=== PATIENT | male | born 1985 | race Caucasian/White ===

== ENCOUNTER 2017-04-03 12:56 | Emergency (ER) | payer MEDICAID ==
[2017-04-03 13:51] VITALS: BP 139/78
[2017-04-03] MEDS ORDERED: Triamcinolone 0.5% OINT * 15 GM TUBE TOPICAL SCH ×2 (14:26→21:00)
--- NOTE | 2017-04-03 14:27 | UC ---
Skin Complaint HPI - HPI Summary HPI Summary: Patient presents to with CC of skin blisters which appeared spontaneously to the left forearm last evening. He also notes to 1 small .5cm X 2 cm linear urticarial lesion to the right forehead which began a few hours ago. He endorses itching and burning to the arm, but only itching to the forehead lesion. He denies muscle or nerve pain. Denies CRUZ. He has had chicken pox as a child and denies varicella zoster vaccine d/t age. He denies contact with any abnormal substances, is not allergic to anything and denies changes of detergents or soaps. Otherwise healthy although patient smokes. - History of Current Complaint Chief Complaint: [facility] Time Seen by Provider: 04/03/17 13:51 Stated Complaint: RASH Hx Obtained From: Patient Onset/Duration: Sudden Onset Skin Exposure Onset/Duration: Days Ago Timing: Constant Onset Severity: Moderate Current Severity: Moderate Pain Intensity: 4 Pain Scale Used: 0-10 Numeric Location: Discrete - left forearm Character: Swelling, Pruritus, Pain, Hives, Redness, Painful Aggravating: Nothing Alleviating: Nothing Associated Signs & Symptoms: Positive: Rash - Allergy/Home Medications Allergies/Adverse Reactions: Allergies Allergy/AdvReac Type Severity Reaction Status Date / Time Environmental Allergies Allergy Mild Congestion Uncoded 09/06/16 19:32 Review of Systems Constitutional: Negative Skin: Rash Eyes: Negative Respiratory: Negative Cardiovascular: Negative Motor: Negative Neurovascular: Negative Neurological: Negative Psychological: Negative All Other Systems Reviewed And Are Negative: Yes PMH/Surg Hx/FS Hx/Imm Hx Previously Healthy: Yes Endocrine History Of: Denies: Diabetes, Thyroid Disease Cardiovascular History Of: Denies: Cardiac Disorders, Hypertension Respiratory History Of: Reports: Asthma, Bronchitis - GETTING OVER BRONCHITIS Denies: COPD GI/ History Of: Reports: Ulcer Psychological History Of: Reports: Anxiety - ON MEDS, Depression - NO MEDS - Surgical History Surgical History: Yes Surgery Procedure, Year, and Place: Several ear tube placements 4-5, [facility]. Procedure to diagnose ulcers, EGD - Family History Known Family History: Positive: Other - skin cancer - Social History Occupation: Unemployed Lives: With Family Alcohol Use: Occasionally Substance Use Type: None Smoking Status (MU): Current Every Day Smoker Type: Cigarettes Amount Used/How Often: 1 ppd Length of Time of Smoking/Using Tobacco: 12 years Have You Smoked in the Last Year: Yes When Did the Patient Quit Smoking/Using Tobacco: wants to quit Household Exposure Type: Cigarettes Physical Exam Triage Information Reviewed: Yes Appearance: Well-Appearing, Well-Nourished Vital Signs: Initial Vital Signs Temp 98.6 F 04/03/17 13:45 Pulse 67 04/03/17 13:45 Resp 18 04/03/17 13:45 BP 139/78 04/03/17 13:45 Pulse Ox 100 04/03/17 13:45 Vital Signs Reviewed: Yes Eye Exam: Normal Eyes: Positive: Conjunctiva Clear Neck exam: Normal Neck: Positive: Supple, No Lymphadenopathy Respiratory Exam: Normal Respiratory: Positive: Chest non-tender, Lungs clear Cardiovascular Exam: Normal Cardiovascular: Positive: RRR Musculoskeletal Exam: Normal Musculoskeletal: Positive: Strength Intact Neurological Exam: Normal Neurological: Positive: Alert Psychological Exam: Normal Psychological: Positive: Normal Response To Family Skin: Positive: rashes - 4X4 patch of vesicles over left forearm with surrounding erythema with pruritis. 1 small utritcarial lesion over right forehead Course/Dx - Differential Diagnoses - Skin Complaint Differential Diagnoses: Drug Rash, Drug Intoxication, Urticaria, Varicella Zoster - Diagnoses Provider Diagnoses: Varicella Zoster Discharge - Discharge Plan Condition: Stable Disposition: HOME Prescriptions: ValACYclovir (*) [Valtrex 1 GM(*)] 1 gm PO DAILY #21 tab Patient Education Materials: Shingles (ED) Referrals: Paco Castelan DO [Primary Care Provider] - Additional Instructions: Follow up with your PCP If you develop any worsening rash or symptoms, come back to immediately This should be followed up by your PCP in about 1-2 weeks to assure resolution of symptoms Take medication directed to you Benardyl for itching - up to twice daily Topical steroid for itching, only use if needed for severe itching Take Valcyclovir as directed
== END 2017-04-03 14:47 | disposition home or self-care (01) ==
LOC: UCEAST 12:56
DX: B02.9 Zoster without complications (principal); J45.909 Unspecified asthma, uncomplicated; F41.8 Other specified anxiety disorders; F17.210 Nicotine dependence, cigarettes, uncomplicated
CPT/HCPCS: 99212; G0463

== ENCOUNTER 2017-04-04 19:29 | Emergency (ER) | payer MEDICAID ==
[2017-04-04 19:43] VITALS: BP 118/75
--- NOTE | 2017-04-04 20:10 | UC ---
Skin Complaint HPI - HPI Summary HPI Summary: Seen last night and dx with shingles started on Valtrex, today rash has spread from left arm to forehead both inner thigh and penis - History of Current Complaint Chief Complaint: UCRash Time Seen by Provider: 04/04/17 19:54 Stated Complaint: RASH Hx Obtained From: Patient Onset/Duration: Sudden Onset, Lasting Days, Still Present, Worse Since - today Skin Exposure Onset/Duration: Days Ago - does now remember doing the yard work at his grandmothers but not certian of any exposures Timing: Constant Onset Severity: Moderate Current Severity: Moderate Location: Diffuse Character: Swelling, Pruritus, Redness, Raised Aggravating: Nothing Alleviating: Nothing Associated Signs & Symptoms: Positive: Rash Related History: Possible Reaction to: Environmental Exposure - Allergy/Home Medications Allergies/Adverse Reactions: Allergies Allergy/AdvReac Type Severity Reaction Status Date / Time Environmental Allergies Allergy Mild Congestion Uncoded 04/04/17 19:43 Review of Systems Constitutional: Negative Skin: Rash - red with clear vesicles on forearm, forehead, both thighs and penis burning and itching discomfort Eyes: Negative ENT: Negative Respiratory: Negative Cardiovascular: Negative Gastrointestinal: Negative Genitourinary: Negative Motor: Negative Neurovascular: Negative Musculoskeletal: Negative Neurological: Negative Psychological: Negative All Other Systems Reviewed And Are Negative: Yes PMH/Surg Hx/FS Hx/Imm Hx Previously Healthy: No Endocrine History Of: Denies: Diabetes, Thyroid Disease Cardiovascular History Of: Denies: Cardiac Disorders, Hypertension Respiratory History Of: Reports: Asthma, Bronchitis - GETTING OVER BRONCHITIS Denies: COPD GI/ History Of: Reports: Ulcer Psychological History Of: Reports: Anxiety - ON MEDS, Depression - NO MEDS - Surgical History Surgical History: Yes Surgery Procedure, Year, and Place: Several ear tube placements 4-5, [facility]. Procedure to diagnose ulcers, EGD - Family History Known Family History: Positive: Other - skin cancer - Social History Occupation: Unemployed Lives: With Family Alcohol Use: Occasionally Substance Use Type: None Smoking Status (MU): Current Every Day Smoker Type: Cigarettes Amount Used/How Often: 1 ppd Length of Time of Smoking/Using Tobacco: 12 years Have You Smoked in the Last Year: Yes When Did the Patient Quit Smoking/Using Tobacco: wants to quit Household Exposure Type: Cigarettes Cessation Counseling: Patient Advised to Stop Physical Exam Triage Information Reviewed: Yes Appearance: Well-Appearing, No Pain Distress, Well-Nourished Vital Signs: Initial Vital Signs Temp 98.6 F 04/04/17 19:40 Pulse 92 04/04/17 19:40 Resp 16 04/04/17 19:40 BP 118/75 04/04/17 19:40 Pulse Ox 98 04/04/17 19:40 Vital Signs Reviewed: Yes Eye Exam: Normal Eyes: Positive: Conjunctiva Clear ENT Exam: Normal ENT: Positive: Normal ENT inspection, Hearing grossly normal, TMs normal. Negative: Nasal congestion, Nasal drainage, Tonsillar swelling, Tonsillar exudate, Trismus, Muffled/hoarse voice Dental Exam: Normal Neck exam: Normal Neck: Positive: Supple, Nontender, No Lymphadenopathy Respiratory Exam: Normal Respiratory: Positive: Chest non-tender, Lungs clear, Normal breath sounds, No respiratory distress, No accessory muscle use Cardiovascular Exam: Normal Cardiovascular: Positive: RRR, No Murmur, Pulses Normal, Brisk Capillary Refill Musculoskeletal Exam: Normal Musculoskeletal: Positive: Strength Intact, ROM Intact, No Edema Neurological Exam: Normal Neurological: Positive: Alert, Muscle Tone Normal Psychological Exam: Normal Skin Exam: Normal Skin: Positive: rashes - contact dermititis as described Diagnostics - Laboratory Diagnostic Studies Completed/Ordered: vzv/hsv swab obtained--(will continue valtex untill return is negative) Course/Dx - Course Course Of Treatment: add prednisone continue triamcinolone,mild soap and water wash follow with pcp prn - Differential Diagnoses - Skin Complaint Differential Diagnoses: Cellulitis, Contact Dermatitis, Local Allergic Reaction , Poison Delisa - Diagnoses Provider Diagnoses: contact dermititis, likey plant source,, nicotine dependant Discharge - Discharge Plan Condition: Stable Disposition: HOME Prescriptions: predniSONE TAB* [Deltasone TAB*] 10 mg PO DAILY #30 tab Patient Education Materials: Prednisone (By mouth), Contact Dermatitis (ED), Poison Delisa (ED) Referrals: Paco Castelan DO [Primary Care Provider] - If Needed
[2017-04-06 19:11] LABS: HS/VZ Source WOUND ON FOREHEAD; Varicella Zoster Result Negative (Negative); Varicella Zoster Source WOUND ON FOREHEAD
== END 2017-04-04 20:23 | disposition home or self-care (01) ==
LOC: UCEAST 19:29
DX: L25.9 Unspecified contact dermatitis, unspecified cause (principal); B02.9 Zoster without complications; J45.909 Unspecified asthma, uncomplicated; F41.8 Other specified anxiety disorders; F17.210 Nicotine dependence, cigarettes, uncomplicated
CPT/HCPCS: 87529; 87798; 99212; G0463

== ENCOUNTER 2017-04-12 17:54 | Emergency (ER) | payer MEDICAID ==
[2017-04-12] MEDS ORDERED: Lidocaine 2% PF * 5 ML VIAL INJ ONE (21:24)
[2017-04-12 22:18] VITALS: BP 118/77
[2017-04-12] MEDS ORDERED: Tetan/Diph/Pertus SYR(Tdap)* 0.5 ML SYR(BOOSTRIX) use SYR IM ONE (22:26)
--- NOTE | 2017-04-12 22:31 | UC ---
Adrian Messer Alok, scribed for Kanika Simpson MD on 04/12/17 at 2039 . Laceration HPI - HPI Summary HPI Summary: 31M presents to the [facility] with a laceration of the left hand between the thumb and pointer finger. Pt states he was helping his grandmother cut a hose with his knife slipping cutting his hand at 1715 this evening. His last tetanus shot is unknown. Pt took Clonipine before arrival due to anxiety. Pt smokes tobacco. Pt has NKDA. - History Of Current Complaint Chief Complaint: UCLaceration Stated Complaint: HAND INJURY Time Seen by Provider: 04/12/17 19:57 Hx Obtained From: Patient, Family/In Home Nanny - female SO Laceration Location: Hand - left Mechanism Of Injury: Sharp Trauma Onset/Duration: Sudden Onset, Lasting Hours, Still Present Severity: Moderate Pain Intensity: 7 Pain Scale Used: 0-10 Numeric Aggravating Factors: Nothing Related History: Dominant Hand Right - Allergies/Home Medications Allergies/Adverse Reactions: Allergies Allergy/AdvReac Type Severity Reaction Status Date / Time Environmental Allergies Allergy Mild Congestion Uncoded 04/12/17 18:34 PMH/Surg Hx/FS Hx/Imm Hx Endocrine History Of: Denies: Diabetes, Thyroid Disease Cardiovascular History Of: Denies: Cardiac Disorders, Hypertension Respiratory History Of: Reports: Asthma, Bronchitis Denies: COPD GI/ History Of: Reports: Ulcer Psychological History Of: Reports: Anxiety - ON MEDS, Depression - NO MEDS - Surgical History Surgical History: Yes Surgery Procedure, Year, and Place: Several ear tube placements 4-5, [facility]. Procedure to diagnose ulcers, EGD - Family History Known Family History: Positive: Cardiac Disease, Hypertension, Other - skin cancer - Social History Occupation: Employed Full-time Lives: With Family Alcohol Use: Occasionally Substance Use Type: None Smoking Status (MU): Current Every Day Smoker Type: Cigarettes Amount Used/How Often: 1 ppd Length of Time of Smoking/Using Tobacco: 12 years Have You Smoked in the Last Year: Yes When Did the Patient Quit Smoking/Using Tobacco: wants to quit Household Exposure Type: Cigarettes Review of Systems Constitutional: Negative Eyes: Other - laceration left hand Neurovascular: Negative Musculoskeletal: Negative Neurological: Negative Psychological: Anxious All Other Systems Reviewed And Are Negative: Yes Physical Exam Triage Information Reviewed: Yes Appearance: Well-Appearing, Well-Nourished, Pain Distress Vital Signs: Initial Vital Signs Temp 98.8 F 04/12/17 18:31 Pulse 106 04/12/17 18:31 Resp 16 04/12/17 18:31 BP 125/76 04/12/17 18:31 Pulse Ox 100 04/12/17 18:31 elevated BP and tachycardia noted Vital Signs Reviewed: Yes Eyes: Positive: Conjunctiva Clear ENT: Positive: Normal ENT inspection Neck: Positive: Supple Respiratory: Positive: Lungs clear, Normal breath sounds, No respiratory distress Cardiovascular: Positive: RRR, No Murmur, Pulses Normal, Brisk Capillary Refill Musculoskeletal: Positive: Strength Intact, ROM Intact Neurological: Positive: Alert, Muscle Tone Normal Psychological Exam: Normal Skin: Positive: Other - 3cm linear laceration left hand between thumb and pointer finger Laceration Repair - Laceration Repair 1 Description: Linear - left hand between thumb and pointer finger Laceration Size After Repair: Length (cm) - 3 cm, Width (mm) - 2 mm, Depth (mm) - 2 mm Modified For Repair: No Type Injection: Local Anesthesia Used: 2.0% Lido Cleansing Completed Via Routine Prep: Yes Irrigation With Pressure Irrigation Device: Yes Closure Material: Sutures - 7 Closure Method: Single Layer Suture Of: Skin Suture Type: Nylon - 4-O nylon Laceration Course/Dx - Course/Dx Course Of Treatment: Pt medications reviewed at visit. Pt presented with left hand laceration. Will irrigate wound and suture. Pt discharged with instructions to return for suture removal in 10-14 days or if any new/worsening symptoms. - Differential Dx - Laceration/Wound Differental Diagnoses: Laceration, Puncture Wound, Tendon Laceration Provider Diagnoses: Tobacco Abuse Disorder. Laceration left hand. Elevated blood pressure due to pain Discharge - Discharge Plan Condition: Stable Disposition: HOME Patient Education Materials: Laceration (ED) Referrals: Paco Castelan DO [Primary Care Provider] - Additional Instructions: Have your stitches removed in 10-14 days. Change the bandage daily. RETURN TO URGENT CARE FOR ANY NEW OR WORSENING SYMPTOMS The documentation as recorded by the Adrian cardoza Alok accurately reflects the service I personally performed and the decisions made by Calvin ferguson Barbara J, MD.
== END 2017-04-12 22:50 | disposition home or self-care (01) ==
LOC: UCEAST 17:54
DX: S61.412A Laceration without foreign body of left hand, initial encounter (principal); F17.210 Nicotine dependence, cigarettes, uncomplicated; J45.909 Unspecified asthma, uncomplicated; K25.9 Gastric ulcer, unspecified as acute or chronic, without hemorrhage or perforation; F41.9 Anxiety disorder, unspecified; F32.9 Major depressive disorder, single episode, unspecified; R03.0 Elevated blood-pressure reading, without diagnosis of hypertension; W26.0XXA Contact with knife, initial encounter
CPT/HCPCS: 12002; 90471; 90715; 99212; G0463

== ENCOUNTER 2017-04-26 10:26 | Emergency (ER) | payer MEDICAID ==
[2017-04-26 10:40] VITALS: BP 104/63
[2017-04-26] MEDS ORDERED: Benzoin COMPOUND swab* 1 applicator pak TOPICAL ONE (10:55)
[2017-04-26] MEDS ORDERED: Benzoin Compound STICK TOPICAL ONE (10:55)
--- NOTE | 2017-04-26 11:03 | UC ---
HPI Wound/Suture Re-check - HPI Summary HPI Summary: Suture removal from web space between thumb and first finger--stitches in for 14 days tetanus up to date - History Of Current Complaint Chief Complaint: UCLaceration Stated Complaint: SUTURE REMOVAL Time Seen by Provider: 04/26/17 10:50 Hx Obtained From: Patient Onset/Duration: Sudden Onset, Lasting Weeks - 2, Still Present Severity: Mild Pain Intensity: 2 Pain Scale Used: 0-10 Numeric - Allergies/Home Medications Allergies/Adverse Reactions: Allergies Allergy/AdvReac Type Severity Reaction Status Date / Time Environmental Allergies Allergy Mild Congestion Uncoded 04/26/17 10:42 PMH/Surg Hx/FS Hx/Imm Hx Previously Healthy: No Respiratory History: Asthma Psychological History: Anxiety - Surgical History Surgical History: Yes Surgery Procedure, Year, and Place: Several ear tube placements 4-5, [facility]. Procedure to diagnose ulcers, EGD - Family History Known Family History: Positive: Cardiac Disease, Hypertension, Other - skin cancer - Social History Occupation: Unemployed Lives: With Family Alcohol Use: Occasionally Substance Use Type: None Smoking Status (MU): Heavy Every Day Tobacco Smoker Type: Cigarettes Amount Used/How Often: 1 ppd Length of Time of Smoking/Using Tobacco: 12 years Have You Smoked in the Last Year: Yes When Did the Patient Quit Smoking/Using Tobacco: wants to quit Household Exposure Type: Cigarettes Cessation Counseling: Counseled 3+Min - 10 Min Review of Systems Constitutional: Negative Skin: Other - healing wound left hand Eyes: Negative ENT: Negative Respiratory: Negative Cardiovascular: Negative Gastrointestinal: Negative Genitourinary: Negative Motor: Negative Neurovascular: Negative Musculoskeletal: Negative Neurological: Negative Psychological: Negative All Other Systems Reviewed And Are Negative: Yes Physical Exam Triage Information Reviewed: Yes Appearance: Well-Appearing, No Pain Distress, Well-Nourished Vital Signs: Initial Vital Signs Temp 99.3 F 04/26/17 10:39 Pulse 82 04/26/17 10:39 Resp 16 04/26/17 10:39 BP 104/63 04/26/17 10:39 Pulse Ox 99 04/26/17 10:39 Vital Signs Reviewed: Yes Eye Exam: Normal Eyes: Positive: Conjunctiva Clear ENT Exam: Normal ENT: Positive: Normal ENT inspection, Hearing grossly normal. Negative: Nasal congestion, Nasal drainage, Trismus, Muffled/hoarse voice Dental Exam: Normal Neck exam: Normal Neck: Positive: Supple, Nontender, No Lymphadenopathy Respiratory Exam: Normal Respiratory: Positive: Chest non-tender, No respiratory distress, No accessory muscle use Cardiovascular Exam: Normal Cardiovascular: Positive: RRR, Pulses Normal, Brisk Capillary Refill Musculoskeletal Exam: Normal Musculoskeletal: Positive: Strength Intact, ROM Intact, No Edema Neurological Exam: Normal Neurological: Positive: Alert, Muscle Tone Normal Psychological Exam: Normal Skin Exam: Normal Skin: Positive: Other - wound left hand Re-Evaluation - Re-Evaluation First Eval Change: Improved - Sutures removed---wound remains not completely well approximated---steri strips applied with good effect and approximation Course/Dx - Course Course Of Treatment: healing wounf, suture removal,nicotine dependent - Differential Dx - Laceration/Wound Differential Diagnoses: Healing Wound, Suture Removal Provider Diagnoses: Suture removal, healing wound, nicotine dependent Discharge - Discharge Plan Condition: Stable Disposition: HOME Patient Education Materials: Ibuprofen (By mouth), How to Stop Smoking (ED), Stitches Removal (ED), Steristrips (ED) Referrals: Paco Castelan DO [Primary Care Provider] - If Needed
== END 2017-04-26 11:08 | disposition home or self-care (01) ==
LOC: UCEAST 10:26
DX: Z48.02 Encounter for removal of sutures (principal); F17.210 Nicotine dependence, cigarettes, uncomplicated
CPT/HCPCS: 99212; G0463

== ENCOUNTER 2017-04-29 10:01 | Emergency (ER) | payer MEDICAID ==
[2017-04-29 10:37] VITALS: BP 124/76
--- NOTE | 2017-04-29 11:24 | UC ---
HPI Wound/Suture Re-check - HPI Summary HPI Summary: concerned his wound is not healing - History Of Current Complaint Chief Complaint: UCLaceration Stated Complaint: WOUND RECHECK Time Seen by Provider: 04/29/17 11:21 Hx Obtained From: Patient Onset/Duration: Lasting Days Severity: Mild Pain Intensity: 0 - Allergies/Home Medications Allergies/Adverse Reactions: Allergies Allergy/AdvReac Type Severity Reaction Status Date / Time Environmental Allergies Allergy Mild Congestion Uncoded 04/29/17 10:37 PMH/Surg Hx/FS Hx/Imm Hx Previously Healthy: No Respiratory History: Asthma Psychological History: Anxiety - Surgical History Surgical History: Yes Surgery Procedure, Year, and Place: Several ear tube placements 4-5, [facility]. Procedure to diagnose ulcers, EGD - Family History Known Family History: Positive: Cardiac Disease, Hypertension, Other - skin cancer - Social History Occupation: Employed Full-time Lives: With Family Alcohol Use: Occasionally Substance Use Type: None Smoking Status (MU): Heavy Every Day Tobacco Smoker Type: Cigarettes Amount Used/How Often: 1 ppd Length of Time of Smoking/Using Tobacco: 12 years Have You Smoked in the Last Year: Yes When Did the Patient Quit Smoking/Using Tobacco: wants to quit Household Exposure Type: Cigarettes Review of Systems Constitutional: Negative Skin: Other - callus on web space of left hand remains not well approximated after suture removal and steri strips Eyes: Negative ENT: Negative Respiratory: Negative Cardiovascular: Negative Gastrointestinal: Negative Genitourinary: Negative Motor: Negative Neurovascular: Negative Musculoskeletal: Negative Neurological: Negative Psychological: Negative All Other Systems Reviewed And Are Negative: Yes Physical Exam Triage Information Reviewed: Yes Appearance: Well-Appearing, No Pain Distress, Well-Nourished Vital Signs: Initial Vital Signs Temp 98.2 F 04/29/17 10:35 Pulse 69 04/29/17 10:35 Resp 16 04/29/17 10:35 BP 124/76 04/29/17 10:35 Pulse Ox 100 04/29/17 10:35 Vital Signs Reviewed: Yes Eye Exam: Normal Eyes: Positive: Conjunctiva Clear ENT Exam: Normal ENT: Positive: Normal ENT inspection, Hearing grossly normal. Negative: Nasal congestion, Nasal drainage Dental Exam: Normal Neck exam: Normal Neck: Positive: Supple, Nontender Respiratory Exam: Normal Respiratory: Positive: Chest non-tender, No respiratory distress, No accessory muscle use Cardiovascular Exam: Normal Cardiovascular: Positive: RRR, Pulses Normal, Brisk Capillary Refill Musculoskeletal Exam: Normal Musculoskeletal: Positive: Strength Intact, ROM Intact, No Edema Neurological Exam: Normal Neurological: Positive: Alert, Muscle Tone Normal Psychological Exam: Normal Psychological: Positive: Normal Response To Family, Age Appropriate Behavior Skin Exam: Normal Course/Dx - Course Course Of Treatment: soap and water wash, splint on finger, follow with pcp - Differential Dx - Laceration/Wound Differential Diagnoses: Cellulitis, Healing Wound Provider Diagnoses: healing wound Discharge - Discharge Plan Condition: Stable Disposition: HOME Patient Education Materials: How to Stop Smoking (ED), Acute Wound Care (ED), Splint Care (ED) Referrals: Paco Castelan DO [Primary Care Provider] - If Needed
== END 2017-04-29 11:44 | disposition home or self-care (01) ==
LOC: UCEAST 10:01
DX: Z72.0 Tobacco use (principal); Z51.89 Encounter for other specified aftercare
CPT/HCPCS: 99213; G0463

== ENCOUNTER 2017-07-31 18:04 | Emergency (ER) | payer OTHER ==
--- NOTE | 2017-07-31 18:08 | UC ---
Ear Complaint HPI - HPI Summary HPI Summary: 31 y/o male presents to the urgent care c/o LF ear pain for the past 2 weeks and bleeding since yesterday. Pt states he has had multiple B/L ear tubes. This is is the #[address] Newsome. Bleeding stopped since he placed a cotton ball out his ear. Pain is 8/10 with mild dizziness and decrease hearing. Pt denies pressure, CRUZ, fever, SOB, chest pain, N/V/D. Pt request a note for work since he had to leave work due to ear pain. - History of Current Complaint Stated Complaint: EAR PAIN Time Seen by Provider: 07/31/17 18:05 Hx Obtained From: Patient Onset/Duration: Gradual Onset, Lasting Days Severity Initially: Mild Severity Currently: Severe Pain Intensity: 8 Pain Scale Used: 0-10 Numeric Aggravating Factors: FB - ear tube bleeding Alleviating Factors: Nothing Associated Signs/Symptoms: Positive: Discharge - apontaneous bleeding yesterday - Allergies/Home Medications Allergies/Adverse Reactions: Allergies Allergy/AdvReac Type Severity Reaction Status Date / Time Environmental Allergies Allergy Mild Congestion Uncoded 07/31/17 18:17 Home Medications: Home Medications Budesonide Flexhaler 90 (NF) [Pulmicort Flexhaler 90 mcg/act (NF)] 07/31/17 [ History] PMH/Surg Hx/FS Hx/Imm Hx Previously Healthy: Yes Endocrine History: Dyslipidemia - diet control Respiratory History: Asthma Other Respiratory History: seasonal allergies - Surgical History Surgical History: Yes Surgery Procedure, Year, and Place: Several ear tube placements 4-5, [facility]. Procedure to diagnose ulcers, EGD - Family History Known Family History: Positive: Cardiac Disease, Hypertension, Other - skin cancer - Social History Occupation: Employed Full-time Lives: With Family Alcohol Use: Occasionally Substance Use Type: None Smoking Status (MU): Heavy Every Day Tobacco Smoker Type: Cigarettes Amount Used/How Often: 1 ppd Length of Time of Smoking/Using Tobacco: 12 years Have You Smoked in the Last Year: Yes When Did the Patient Quit Smoking/Using Tobacco: wants to quit Household Exposure Type: Cigarettes Review of Systems Constitutional: Negative Skin: Negative Eyes: Negative ENT: Ear Ache - with spontaneous bleeding yesterday Respiratory: Negative Cardiovascular: Negative Gastrointestinal: Negative Genitourinary: Negative Motor: Negative Neurovascular: Negative Musculoskeletal: Negative Neurological: Negative Psychological: Negative Is Patient Immunocompromised?: No All Other Systems Reviewed And Are Negative: Yes Physical Exam Triage Information Reviewed: Yes Appearance: Well-Appearing, No Pain Distress, Well-Nourished, Thin Vital Signs Reviewed: Yes Eye Exam: Normal Eyes: Positive: Conjunctiva Clear - PERRLA, EOMI ENT: Positive: Normal ENT inspection, Pharynx normal, TMs normal - RT exteranal ear canal clear wit ear tube in place, RT TM pearly in color. LF external ear canal with erythema, tender to palaption. Ear tube with sorrounding dry blood.. Negative: Nasal congestion, Nasal drainage Dental Exam: Normal Neck exam: Normal Neck: Positive: Supple, Nontender, Enlarged Nodes @ - LF anterior cervical lymphadenopathy tender and enlarge Respiratory Exam: Normal Respiratory: Positive: Chest non-tender, Lungs clear, Normal breath sounds Cardiovascular Exam: Normal Cardiovascular: Positive: RRR, No Murmur, Pulses Normal Abdominal Exam: Normal Abdomen Description: Positive: Nontender, No Organomegaly, Soft. Negative: CVA Tenderness (R), CVA Tenderness (L) Bowel Sounds: Positive: Present Musculoskeletal Exam: Normal Musculoskeletal: Positive: Strength Intact, ROM Intact, No Edema Neurological Exam: Normal Psychological Exam: Normal Skin Exam: Normal Ear Complaint Course/Dx - Course Course Of Treatment: 31 y/o male presents to the urgent care c/o LF ear pain for the past 2 weeks and bleeding since yesterday. Pt states he has had multiple B/L ear tubes. This is is the #[address] Newsome. Bleeding stopped since he placed a cotton ball out his ear. Pain is 8/10 with mild dizziness and decrease hearing. Pt denies pressure, CRUZ, fever, SOB, chest pain, N/V/D. Pt request a note for work since he had to leave work due to ear pain. HX obtained. Pt otitis externa, LF ear tube is visualized on external ear canal with dry blood. Pt with probable TM perforated. Pt Given Ibuprofen 800mg PO for pain at the clinic. Viscous Lidocaine placed with a swab in outer external ear canal to alleviate pain since pt decline ear drops. Pt Rx Prednisone PO taper dose, Augmentin PO and Ibuprofen PO. DR Espinoza consulted and He agreed with PT 's care and treatment. Pt given referral for DR Newsome as soon as possible for fruther evaluation and treatment. Pt Tolerated well medications and pain decrease. Pt given work note. Pt understood and agreed with D/C instructions and left the clinic ambulating.A&OX3 - Differential Dx/Diagnosis Differential Diagnosis/HQI/PQRI: Otitis Externa, Otitis Media, Perforated TM, Pharyngitis, URI Provider Diagnoses: 1- Acute otits externa with probable perforated TM - Physician Notifications Discussed Patient Care With: Jeromy Espinoza - Dr Espinoza agreed with PT's care and plan Discharge - Discharge Plan Condition: Stable Disposition: HOME Prescriptions: Amoxicillin/Clavulanate TAB* [Augmentin TAB 875*] 875 mg PO BID #20 tab Ibuprofen TAB* [Motrin TAB* 800 MG] 800 mg PO Q6H #30 tab predniSONE TAB* [Deltasone TAB*] 20 mg PO DAILY #11 tab Patient Education Materials: Otitis Media (ED) Forms: *Work Release Referrals: Paco Castelan DO [Primary Care Provider] - If Needed Aníbal Newsome MD [Medical Doctor] - Additional Instructions: 1-Please take full course of antibiotic to avoid resistance. 2- Take Ibuprofen PO and Prednisone PO as instructed after meals to alleviate pain and swelling. 3- F/u with your ENT DR Newsome as soon as possible for further evaluation and treatment. 4- If you develop any fever, bleeding returns please despite taking antibiotics please go immediately to the ER for further treatment.
[2017-07-31 18:21] VITALS: BP 131/74
[2017-07-31] MEDS ORDERED: Ibuprofen TAB* 400 MG PO ONE (18:32)
[2017-07-31] MEDS ORDERED: Lidocaine 2% VISCOUS* 15 ML UDC SWISH SPIT ONE (18:49)
== END 2017-07-31 19:21 | disposition home or self-care (01) ==
LOC: UCEAST 18:04
DX: H60.502 Unspecified acute noninfective otitis externa, left ear (principal); Z98.890 Other specified postprocedural states; F17.210 Nicotine dependence, cigarettes, uncomplicated
CPT/HCPCS: 99212; A9270-GY; G0463

== ENCOUNTER 2017-08-25 07:54 | Day surgery (SDC) | payer OTHER ==
[~2017-08-25 07:54] MED LIST: Buffered Lidocaine 0.9% SYRIN* 5 ML/SYR SYRINGE INTRADERM ONE; Dexamethasone IV* 4 MG/ML 1 ML (4 MG) IV SLOW PU ONE; Famotidine IV* 10 MG/ML 2 ML (20 mg) IV ONE
[2017-08-25] MEDS ORDERED: Buffered Lidocaine 0.9% SYRIN* 5 ML/SYR SYRINGE ONE (07:58)
[2017-08-25] MEDS ORDERED: Dexamethasone IV* 4 MG/ML 1 ML (4 MG) ONE (07:58)
[2017-08-25] MEDS ORDERED: Famotidine IV* 10 MG/ML 2 ML (20 mg) ONE (07:58)
[2017-08-25] MEDS ORDERED: PROCHLORPERAZINE INJ 5 MG/ML 2 ML VIAL IV PRN (09:11)
[2017-08-25] MEDS ORDERED: fentaNYL* 50 MCG/ML 2 ML VIAL (100 MCG VIAL) IV PRN (09:11)
[2017-08-25] MEDS ORDERED: HYDROcodone/ACETAMIN 5-325 MG* 1 TAB PO PRN (09:11)
[2017-08-25] MEDS ORDERED: Ketorolac INJ* 30 MG/ML 1 ML VIAL IV PRN (09:11)
[2017-08-25] MEDS ORDERED: Ciprofloxacin 0.3% OPTH.SOL* 2.5 ML BTL ONE (09:13)
[2017-08-25] MEDS ORDERED: fentaNYL* 50 MCG/ML 2 ML VIAL (100 MCG VIAL) ONE (09:19)
[2017-08-25] MEDS ORDERED: Lidocaine 2% PF * 5 ML VIAL ONE (09:23)
[2017-08-25] MEDS ORDERED: Propofol* 10 MG/ML 20 ML BTL IV PUSH ONE (09:23)
[2017-08-25] MEDS ORDERED: Ondansetron INJ* 2 MG/ML VIAL ONE (09:36)
[2017-08-25 10:34] VITALS: BP 105/63
--- NOTE | 2017-08-25 23:05 | OP ---
DATE OF OPERATION: 08/25/17 - [facility] DATE OF : 89 SURGEON: Jovany Newsome MD. ANESTHESIOLOGIST: Mariajose Brunson MD ANESTHESIA: Gas mask anesthesia. PRE-OP DIAGNOSIS: Chronic otitis media with retained myringotomy tubes. POST-OP DIAGNOSIS: Chronic otitis media with retained myringotomy tubes. OPERATIVE PROCEDURE: Examination of the ears under anesthesia with removal of myringotomy tubes bilaterally. COMPLICATIONS: None. DISPOSITION: Good. SPECIMEN: None. BLOOD LOSS: None. DESCRIPTION OF PROCEDURE: The patient was taken to the operating room, placed in the supine position on the operating table, maintained with gas mask and IV anesthesia. Head was turned to the right, ear speculum was placed in the left ear canal. He had dried blood in the myringotomy tube, which was grasped and removed. This tympanic membrane was intact. Middle ear space was clear. Cipro drops were placed and cotton ball was placed in the canal. The head was turned to the left. Ear speculum was then placed in the right ear canal and the tube and some dried blood and wax around the tube were grasped and removed. 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 Middle ear space appeared clear. No other evidence of the cholesteatoma. Cipro drops were placed and a cotton ball was placed in the canal. The patient tolerated this well, no complications, transferred to the recovery room in stable condition. [id number]/CPS #: [id number] MTDD
== END 2017-08-25 10:50 | disposition home or self-care (01) ==
LOC: OR 07:54
PROVIDERS: ATTEND Otolaryngology
DX: H66.93 Otitis media, unspecified, bilateral (principal); H92.13 Otorrhea, bilateral; F17.210 Nicotine dependence, cigarettes, uncomplicated; J45.909 Unspecified asthma, uncomplicated; E78.5 Hyperlipidemia, unspecified; K21.9 Gastro-esophageal reflux disease without esophagitis
CPT/HCPCS: A9270-GY; J1100; J2405; J2704; J3010

== ENCOUNTER 2018-07-24 15:23 | Emergency (ER) | payer SELFPAY ==
[2018-07-24 17:27] VITALS: BP 140/82
[2018-07-24] MEDS ORDERED: HYDROcodone/ACETAMIN 5-325 MG* 1 TAB PO ONE (17:55)
--- NOTE | 2018-07-24 17:58 | UC ---
Dental HPI - HPI Summary HPI Summary: Complains of a cracked tooth on the lower left lower side of mouth 6 days ago. Denies fever, sore throat, loss of jaw or range of motion, dysphagia, purulent discharge, oral swelling. Patient states he has no insurance and is trying to get a dentist. Has taken ibuprofen with minimal relief of pain. - History of Current Complaint Chief Complaint: UCDentalProblem Stated Complaint: CRACKED TOOTH Time Seen by Provider: 07/24/18 17:49 Hx Obtained From: Patient Onset/Duration: Gradual Onset Severity: Severe Pain Intensity: 10 Pain Scale Used: 0-10 Numeric Aggravating Factor(s): Heat, Cold, Chewing Alleviating Factor(s): Nothing - Allergies/Home Medications Allergies/Adverse Reactions: Allergies Allergy/AdvReac Type Severity Reaction Status Date / Time No Known Allergies Allergy Verified 08/25/17 08:07 Home Medications: Home Medications Naproxen Sodium [Aleve] 07/24/18 [History] PMH/Surg Hx/FS Hx/Imm Hx - Surgical History Surgical History: Yes Surgery Procedure, Year, and Place: bilateral ear tube placements - x5/6 [facility] - Family History Known Family History: Positive: Cardiac Disease, Hypertension, Other - skin cancer - Social History Alcohol Use: Rare Substance Use Type: None Smoking Status (MU): Heavy Every Day Tobacco Smoker Type: Cigarettes Amount Used/How Often: 1 ppd for 13 years Length of Time of Smoking/Using Tobacco: 12 years Have You Smoked in the Last Year: Yes When Did the Patient Quit Smoking/Using Tobacco: wants to quit Household Exposure Type: Cigarettes Review of Systems Constitutional: Negative Skin: Negative Eyes: Negative ENT: Dental Pain Respiratory: Negative Cardiovascular: Negative Gastrointestinal: Negative Genitourinary: Negative Motor: Negative Neurovascular: Negative Musculoskeletal: Negative Neurological: Negative Psychological: Negative All Other Systems Reviewed And Are Negative: Yes Physical Exam - Summary Physical Exam Summary: No oral lesions, apical abscess, purulent discharge noted. Cracked tooth on room molar left lower side. Triage Information Reviewed: Yes Appearance: Well-Appearing Vital Signs: Initial Vital Signs Temp 98.1 F 07/24/18 17:21 Pulse 85 07/24/18 17:21 Resp 16 07/24/18 17:21 BP 140/82 07/24/18 17:21 Pulse Ox 98 07/24/18 17:21 Vital Signs Reviewed: Yes Eye Exam: Normal ENT Exam: Normal Dental: Positive: Percussion Tenderness @, Dental Fracture @. Negative: Abscess @ Neck exam: Normal Respiratory Exam: Normal Cardiovascular Exam: Normal Abdominal Exam: Normal Musculoskeletal Exam: Normal Neurological Exam: Normal Psychological Exam: Normal Skin Exam: Normal Dental Complaint Course/Dx - Course Course Of Treatment: Complains of a cracked tooth on the lower left lower side of mouth 6 days ago. Denies fever, sore throat, loss of jaw or range of motion , dysphagia, purulent discharge, oral swelling. Patient states he has no insurance and is trying to get a dentist. Has taken ibuprofen with minimal relief of pain. Physical exam:No oral lesions, apical abscess, purulent discharge noted. Cracked tooth on room molar left lower side. Vital signs normal. Rx for Pen-Vee K, hydrocodone. Follow-up with dentist - Differential Dx/Diagnosis Provider Diagnoses: dental pain. cracked tooth Discharge - Sign-Out/Discharge Documenting (check all that apply): Patient Departure All imaging exams completed and their final reports reviewed: No Studies - Discharge Plan Condition: Stable Disposition: HOME Prescriptions: HYDROcodone/ACETAMIN 5-325 MG* [[place] 5-325 TAB*] 1 tab PO Q6H PRN 2 Days #6 tab MDD 4 tabs PRN Reason: Pain Penicillin VK 500 MG TAB(NF) [Penicillin VK 500 mg Tab] 500 mg PO QID 7 Days # 28 tab Patient Education Materials: Toothache (ED) Referrals: Paco Castelan DO [Primary Care Provider] - Additional Instructions: Follow-up with your dentist. - Billing Disposition and Condition Condition: STABLE Disposition: Home - Attestation Statements Provider Attestation: I was available for consult. This patient was seen by the [facility]. The patient was not presented to, seen by, or examined by me. -Deshawn
== END 2018-07-24 18:15 | disposition home or self-care (01) ==
LOC: UCEAST 15:23
DX: K03.81 Cracked tooth (principal); K08.89 Other specified disorders of teeth and supporting structures; F17.210 Nicotine dependence, cigarettes, uncomplicated
CPT/HCPCS: 99212; G0463

== ENCOUNTER 2018-10-27 10:07 | Emergency (ER) | payer OTHER ==
--- OUTSIDE RECORDS SUMMARY | 2018-10-27 10:13 | XMS REPORT | Continuity of Care Document ---
:1985 External Reference #:[id number] Author Name Jasmyn Soto Care Team Providers Name Role Phone HCP given Primary Care Physician Unavailable Payers Type Date Identification Numbers Payment Provider Subscriber Effective: Policy Number: [id number] [employer] (MARISA Palomino 2009 MGD) Group Name: Seq#[id number] [address] [address] PayID: [id number] [place] [address] Policy Number: [id number] [facility] Timothy Palomino PayID: [id number] [address] [place] [address] Advance Directives Description No Information Available Problems Date Description Provider Status Onset: 09/13/2004 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 Active Onset: 11/11/2009 Gastroesophageal reflux disease Sanjiv Encarnacion M.D. Active Onset: 12/22/2011 Borderline personality disorder Sanjiv Encarnacion M.D. Active Onset: 08/31/2013 Tobacco user Paco Castelan D.O. Active Onset: 08/31/2013 Acute maxillary sinusitis Paco Castelan D.O. Active Onset: 12/26/2013 Disorder of shoulder Paco Castelan D.O. Active Onset: 02/14/2014 Cough Paco Castelan D.O. Active Onset: 02/14/2014 Acute bronchitis Paco Castelan D.O. Active Onset: 02/14/2014 Lipoprotein deficiency disorder Paco Castelan D.O. Active Onset: 09/26/2016 Mixed hyperlipidemia Paco Castlean D.O. Active Onset: 10/08/2018 Uncomplicated moderate persistent Paco Castelan D.O. Active asthma Onset: 10/08/2018 Allergic rhinitis Paco Castelan D.O. Active Onset: 10/08/2018 Anxiety state Paco Castelan D.O. Active Onset: 10/08/2018 Moderate recurrent major depression Paco Castelan D.O. Active Family History Date Family Member(s) Problem(s) Comments General Anxiety And Depression Mother Hypercholesterolemia Paternal Grandfather CABG in 30's Social History Type Date Description Comments Sex Unknown Lives With Mother Diet Healthy, Well Balanced Sleep Typically sleeps 8 hours a night Smoke-Free Home is smoke-free Abuse No history of abuse Tobacco Use Start: Unknown Tried Welbutrin Wo Help LOSENGES AND NICOTINE GUM NAUSEATE, NEVER TRIED NICOTINE SPRAY , TRIED INHALER TWICE WO HELP, PATCHES DIDNOT WORK. STARTED AGE 18 Tobacco Use Start: Unknown current cigarette smoker 1 ppd sometimes down to 1/2 ppd urged to quit Smoking Status Reviewed: 05/01/17 current cigarette smoker 1 ppd sometimes down to 1/2 ppd urged to quit ETOH Use Currently consumes occassionally total 8 alcohol beers / wk Tobacco Use Start: Unknown Patient is a current smoker, smokes every day Enjoy Exercising Plays Baseball Sun Exposure moderate amount of sun exposure Sun Exposure Does not use sunscreen Seat Belt/Car Seat always uses seat belt Guns in Home Yes, Locked Up Smoke Alarms Yes smoke alarm Additional Info 12/22/2011 Sexual Partners no partners since broke up with his Father's Occupation [employer] Mother's Occupation [employer]er [employer] No Daycare Needed Allergies, Adverse Reactions, Alerts Description No Known Drug Allergies Medications Medication Date Status Form Strength Qnty SIG Indications Ordering Provider Buspirone HCL 10/08 Active Tablets 7.5mg 60tab 1 cap by F41.9 s mouth twice a Paco, day D.O. Klonopin 10/08 Active Tablets 0.5mg 90tab take 1 every F41.9 s 8 hours as Paco, needed for D.O. anxiety Loratadine 10/08 Active Tablets 10mg 90tab take 1 tablet J30.[address] [facility], s daily at Paco, bedtime for D.O. allergies Symbicort 10/08 Active Aerosol 160-4.5mc 30.6g inhale 2 J45.40 Sopchak, g/Act m puffs by Paco, mouth twice a D.O. day gargle after use Proair HFA 10/08 Active Aerosol 108(90Bas 25.5g 1-2 puffs J45.40 Sopcha, e) m four times a Paco, mcg/Act day as needed D.O. No Active 10/08 Hx Unknown Medications - 10/08 Qvar Redihaler 01/09 Hx Aerosol 80mcg/Act 31.8g Inhale 2 Sopcha, m puffs by Paco, - mouth 2 times D.O. 10/07 per day for asthma Qvar 11/07 Hx Aerosol 40mcg/Act 26.1g 2 puffs twice [facility] m a day rinse Paco, - mouth after D.O. 01/09 use Arnuity 11/03 Hx Aerosol 100mcg/Ac 30uni Inhale [address] [facility] t ts puffs by Paco, - mouth daily D.O. 11/07 for asthma Cefdinir 08/17 Hx Capsules 300mg 20cap 1 cap bid x H72.90 Silcoff, s 10 days for Jeffy, - ear infection M.D. 08/26 Prednisone 08/17 Hx Tablets 20mg 5tabs 1 per morning H72.90 Silcoff, x 5 days for Jeffy, - sevre ear M.D. 10/07 pain 2018 Meclizine HCL 08/17 Hx Tablets 25mg 24tab 1 tid-qid as H81.42 Silcoff, s needed for Jeffy, - room spinning M.D. 08/26 dizziness Ventolin HFA 01/02 Hx Aerosol 108(90Bas 16gm inhale 2 J20.9 Sopchak, e) puffs by Paco, - mcg/Act mouth every 4 D.O. 18 hours as needed for bronchospasm Pulmicort 01/02 Hx Aerosol 90mcg/Act 240pu 2 puffs 466.0 [facility] ffss 1-2x/day; Paco, - Every day for D.O. 11/03 control asthma to not wake up coughing Clonazepam 09/25 Hx Tablets 1mg 1 1/2 tabs po Member gonsalo Suarez, - [facility] 10/07 Amitriptyline 09/13 Hx Tablets 10mg 30tab 1 by mouth G47.00 [facility], HCL s every night Paco, - at bedtime D.O. 09/13 Fluticasone 07/31 Hx Suspension 50mcg/Act 3unit 2 sprays into 477.0 [facility] Propionate s each nostril Paco, - every day for D.O. 09/25 nasal congestion. hannah allergies. rinse mouth post 477.0 Ventolin HFA 07/31/2014 - Hx Aerosol 108(90Base) 2units inhale 2 477.0 [facility], 09/25/2016 mcg/Act puffs by Paco, D.O. mouth every 4 hours as needed for cough or wheezing Tramadol HCL 07/31/2014 - Hx Tablets 50mg 40tabs 1-2 by 729.1 [facility], 08/30/2014 mouth every Paco, D.O. 6 hours as needed for pain 723.1 Zyrtec Allergy 07/31/2014 - Hx Capsules 10mg 30caps 1-2 cap by 477.0 [facility], 09/25/2016 mouth every Paco, day D.O. Lansoprazole 07/31/2014 - Hx Capsules DR 30mg 30caps 1 po [facility] 530.[facility]2014 needed Paco, D.O. Azithromycin 02/14/2014 - Hx Tablets 500mg 6tabs take 1 tablet 461.0 [facility], 04/29/2014 by mouth daily Paco, for 3 days for D.O. infection Pulmicort 01/23/2014 - Hx Aerosol 90mcg/ 240puffs 2 puffs 466.0 [facility] 01/02/2017 Act s 1-2x/day; to Paco, be used when D.O. flovent not available Amoxicillin/Cla 01/23/2014 - Hx Tablets 875-12 14tabs 1 by mouth 466.0 bryan Castelananate 01/30/2014 5mg twice a day Paco, Potassium D.O. Amoxicillin/Cla 12/26/2013 - Hx Tablets 875-12 20tabs 1 by mouth 382.02 Flip vulanate 01/21/2014 5mg twice a day Pcao, Potassium D.O. Triamcinolone 09/18/2013 - Hx Cream 0.5% 80gm apply 2-3 692.6 Silcoff, Acetonide 10/02/2013 x/day up to 2 rehan Bardales M.D. Biaxin 08/31/2013 - Hx Tablets 500mg 20tabs 1 cap by mouth 490 [facility], 09/10/2013 twice a day Paco D.O. Ventolin HFA 08/31/2013 - Hx Aerosol 108(90 1units inhale 2 puffs 477.0 [facility], 07/31/2014 Base) by mouth every Paco, mcg/Ac 4 hours as D.O. t needed for cough or wheezing Chantix 08/31/2013 - Hx Tablets 0.5mg 1tabs Take as 305.1 Flip, Starting Month 12/26/2013 X 11 & directed Paco, Byron 1 mg X D.O. 42 Flonase 08/31/2013 - Hx Suspension 50mcg/ 3units inhale 2 477.0 [facility] , 07/31/2014 Act sprays into Paco, nostril daily D.O. in each nostril for nose inflammation 477.0 Tramadol HCL 11/05/2012 - Hx Tablets 50mg 40tabs 1 po q 6 724.2 Sanjiv Jeter 08/31/2013 hrs prn Klepack, pain M.DMeghana Flexeril 11/05/2012 - Hx Tablets 10mg 30tabs 1 po tid 724.2 Sanjiv Jeter 08/31/2013 prn for Klepack, muscle M.D. relaxation/ spasms Sulfamethoxazole 10/12/2012 - Hx Tablets 800-16 14tabs 1 po bid 381.29 Silcoff, /Trimethoprim DS 10/30/2012 0mg Riccardo Bardales Loratadine 10/12/2012 - Hx Tablets 10mg 30tabs 1 po qd 381.29 Silcoff, 08/31/2013 Riccardo Bardales Debrox 10/12/2012 - Hx Solution 6.5% 1bottle instill 381.29 Silcoff, 08/31/2013 5-10 drops Jeffy in ear Riccardo garvin up to 4 days, keep drops in ear for several min Klonopin 06/28/2012 - Hx Tablets 0.5mg 90tabs 1/2 to 1 Unknown 04/29/2014 tab po tid prn severe anxiety. keep diary of symptoms. caution re sedation Omeprazole 02/17/2012 - Hx Capsules DR 40mg 30caps 1 by mouth 530.81 Unknown 06/29/2012 every day for acid reflux Depakote 11/25/2011 - Hx Tablets DR 500mg 180tabs 2 po 301.83 Unknown 02/13/2012 Seroquel 11/24/2011 - Hx Tablets 30mg 30tabs 1 po 301.83 Unknown 02/13/2012 Nasonex 09/21/2009 - Hx Suspension 50mcg/ 1units 2 sprays to 381.81 Sanjiv AMeghana 10/21/2009 Act each apolonia Encarnacion M.D. prn for nasal allergies Clarithromycin 06/23/2009 - Hx 250mg 20units 1 po bid 466.0 Sanjiv A. 07/03/2009 until gone Riccardo Encarnacion use this instead of the brand name Concerta 06/12/2009 - Hx Tablets ER 18mg 30tabs 1 po qam Member, 12/21/2011 MD Erick [facility] Omeprazole 40 MG 03/26/2009 - Hx Capsules 30caps 1 qam on 787.1 Sanjiv AMeghana 02/13/2012 empty brett Encarnacion M.D. Loratadine 03/26/2009 - Hx Tablets 10mg 30tabs 1 po qd for 477.0 Sanjiv A. 12/21/2011 allergies Riccardo Encarnacion Campral 01/09/2009 - Hx Tablets DR 333mg 180tabs 2 tid 303.90 Sanjiv Jeter 06/23/2009 Riccardo Encarnacion Amoxil 12/22/2008 - Hx Capsules 250mg 30caps 1 po tid 382.00 Sanjiv Jeter 01/01/2009 until gone Riccardo Encarnacion Work Note 11/05/2008 - Hx please 008.69 Inocencio, 11/08/2008 excuse from [employer]ama SOL[employer] work 11/05 and 11/06 due to medical illness. Advair Diskus 08/20/2008 - Hx Mis 500/50 1units 1 puff bid; 493.12 Silcoff, 09/19/2008 Warren Bardales, After Use MNawaf Zithromax Z-Byron 08/20/2008 - Hx Tablets 250mg 1Pack 2 PO On Day 493.12 Silcoff, 08/25/2008 1, 1 PO On Jeffy, Days 2-5 M.DMeghana 466.0 Risperdal 06/06/2008 - Hx Tablets 1mg 60tabs 1 bid 296.89 Member, 12/21/2011 MD Erick [facility] Bupropion HCL 06/06/2008 - Hx Tablets ER 150mg 60tabs 1 bid 296.89 Sanjiv A. ER 12/21/2011 12HR Riccardo Encarnacion Timothy 07/06/2007 - Hx 842.00 Silcoff, Return To Work 07/09/2007 Jeffy, Without Riccardo Restrictions Wrist 06/26/2007 - Hx 1units use as 842.00 Silcoff, Immobilizer 06/12/2008 galdino Bardales (Left) Riccardo Aguirre May Work 06/26/2007 - Hx must use 842.00 Silcoff, With The 07/06/2007 wrist Jeffy, Following immobcrow Gu Restrictions on left arm at ALL times, no lifting >5#, pushing >10# or pulling w/ left hand PT For Left 06/26/2007 - Hx please 842.00 Silcoff, Wrist 06/12/2008 evaluate and Gudelia Bardales M.D. modalities prn, instruct in hep Chantix Starter 04/06/2007 - Hx [facility] 1units take as 305.1 Sanjiv Jeter Kit 06/12/2008 galdino Encarnacion M.D. Zithromax Z-Byron 01/17/2007 - Hx Tablets 250mg 1Pack use as 466.0 Inocencio 01/22/2007 galdino Ontiveros MD Phenergtk W/ 01/17/2007 - Hx Syrup 6.25mg 8Oz 2 TSP qid prn 466.0 Howson, Codeine 02/05/2007 ;10mg/ Cough Rama SOLIS 5ML Work Note 10/20/2006 - Hx Patient Seen 787.01 [facility] 11/27/2006 And Treated Here. Suggest Next 48 Hours Off. Robitussin A-c 10/20/2006 - Hx Syrup 100mg; 120ml 5 ml po q4h [email or web address] 01/17/2007 10mg/5 cough ML Amoxicillin 09/27/2006 - Hx Tablets 500mg 30tabs 1 po tid for 381.00 Silcoff, 10/07/2006 ear infection Riccardo Bardales Air Cast For 04/06/2005 - Hx 1units use as 845.00 Silcoff, Right Ankle 05/06/2005 directed Riccardo Bardales Advair Diskus 10/11/2004 - Hx Inhaler 250mcg 1units 1 puff bid 493.12 Silcoff, 09/27/2006 ;50mcg Riccardo Bardales Zithromax Z-Byron 10/11/2004 - Hx Tablets 250mg 1Pack 2 po on day 493.12 Silcoff, 10/16/2004 1, 1 po on , days 2-5 M.D. Cefuroxime 05/27/2004 - Hx Tablets 500mg 14tabs 1 po bid 381.02 klepack Axetil 09/13/2004 Dynacin 10/21/2003 - Hx Capsules 75mg 60caps take 1 tablet Breiman, 09/13/2004 orally twice Kanika, a day for N.P. 1 month Proventil HFA 10/21/2003 - Hx Aerosol 90mcg/ 1units 2 puffs po 493.12 Sanjiv A. 12/21/2011 Dose q4h prn for terrance Encarnacion M.D. wheezing, shortness of breath 493.10 Amoxil 09/04/2003 - Hx Capsules 250mg 1 tablet 3 Breiman, 09/13/2004 times a day Kanika, for 10 days N.P. Proventil HFA 09/04/2003 - Hx Aerosol 90mcg/Dos 1uni 2 puffs po Breiman, 09/13/2004 e ts q4-6hours as Kanika, needed prn N.P. for shortness of breath Risperdal - Hx Tablets 1mg 0tab 1 po bid Unknown 09/27/2006 s Wellbutrin XL - Hx Tablets 300mg 1 hs Unknown 09/27/2006 Vicodin - Hx Tablets 7.5-500mg 40ta One To 2 Unknown 07/18/2008 bs Tablets PO QHS prn For Pain Ondansetron - Hx Tablets 4mg Unknown 09/25/2016 Dispers Ibuprofen - Hx Tablets 800mg Unknown 09/25/2016 Hydrocodone-Acet - Hx Tablets 5-325mg Unknown aminophen 09/25/2016 Immunizations CPT Code Status Date Vaccine Lot # [id number] Given 10/30/2014 Influenza Virus Vaccine, Quadrivalent, Split, [id number] Preservative Free 85153 Given 06/29/2012 Pneumococcal Immunization [id number] 13792 Given 11/05/2010 Flu, Split Virus 3Yrs [id number] 79555 Given 08/20/2008 Flu, Split Virus 3Yrs [id number] 35056 Given 02/06/2007 Adacel or Boostrix, TDaP [id number] 11167 Refused 11/03/2016 Influenza Virus Vaccine, Quadrivalent, Split, Im Use Vital Signs Date Vital Result Comment 10/08/2018 2:47pm BP Systolic 112 mmHg BP Diastolic 80 mmHg Height 71 inches 5'11" Weight 168.00 lb BMI (Body Mass Index) 23.4 kg/m2 08/17/2017 10:36am BP Systolic 120 mmHg BP Diastolic 82 mmHg Body Temperature 97.4 F 05/01/2017 4:15pm BP Systolic 105 mmHg BP Diastolic 80 mmHg Height 71.25 inches 5'11.25" Weight 162.00 lb BMI (Body Mass Index) 22.4 kg/m2 01/02/2017 1:24pm BP Systolic 110 mmHg BP Diastolic 80 mmHg Weight 167.00 lb with sneakers 11/03/2016 2:16pm BP Systolic 116 mmHg BP Diastolic 74 mmHg Heart Rate 70 /min Respiratory Rate 16 /min Weight 158.00 lb 09/26/2016 3:04pm BP Systolic 115 mmHg BP Diastolic 80 mmHg Height 71 inches 5'11" Weight 154.00 lb with sneakers BMI (Body Mass Index) 21.5 kg/m2 09/13/2016 1:35pm BP Systolic 138 mmHg BP Diastolic 78 mmHg Height 71 inches 5'11" Weight 158.00 lb BMI (Body Mass Index) 22.0 kg/m2 10/30/2014 9:46am BP Systolic 130 mmHg BP Diastolic 67 mmHg Heart Rate 86 /min Weight 183.00 lb w/workboots and coat 07/31/2014 11:42am BP Systolic 126 mmHg BP Diastolic 88 mmHg Height 71.5 inches 5'11.50" Weight 171.00 lb BMI (Body Mass Index) 23.5 kg/m2 05/19/2014 3:26pm BP Systolic 120 mmHg BP Diastolic 62 mmHg Body Temperature 9.5 F Weight 169.00 lb 02/14/2014 3:27pm BP Systolic 100 mmHg BP Diastolic 70 mmHg Body Temperature 98.5 F Weight 165.00 lb w/shoes 01/23/2014 9:06am BP Systolic 114 mmHg BP Diastolic 80 mmHg Body Temperature 97.8 F Weight 167.00 lb 12/26/2013 9:52am BP Systolic 110 mmHg BP Diastolic 74 mmHg Body Temperature 98.4 F Height 71.50 inches 5'11.50" Weight 169.00 lb BMI (Body Mass Index) 23.2 kg/m2 09/18/2013 1:58pm BP Systolic 114 mmHg BP Diastolic 79 mmHg Heart Rate 95 /min Body Temperature 97.6 F 08/31/2013 10:24am BP Systolic 100 mmHg BP Diastolic 76 mmHg Body Temperature 97.6 F Weight 164.00 lb 11/05/2012 1:19pm BP Systolic 128 mmHg BP Diastolic 78 mmHg Heart Rate 80 /min Respiratory Rate 16 /min Body Temperature 98.1 F Weight 177.00 lb 10/12/2012 12:04pm BP Systolic 129 mmHg BP Diastolic 71 mmHg Heart Rate 61 /min Body Temperature 97.7 F Height 72.25 inches 6'0.25" Weight 180.00 lb BMI (Body Mass Index) 24.2 kg/m2 06/29/2012 4:09pm BP Systolic 104 mmHg BP Diastolic 68 mmHg Heart Rate 80 /min Respiratory Rate 16 /min Weight 180.00 lb Last Menstrual Period 0 02/14/2012 2:00pm BP Systolic 130 mmHg BP Diastolic 80 mmHg Heart Rate 72 /min reg Respiratory Rate 12 /min not laboured Body Temperature 98.2 F Weight 173.00 lb w/shoes 12/22/2011 2:21pm BP Systolic 112 mmHg BP Diastolic 74 mmHg Height 72 inches 6'0" Weight 187.00 lb BMI (Body Mass Index) 25.4 kg/m2 Last Menstrual Period 0 11/05/2010 4:24pm BP Systolic 126 mmHg BP Diastolic 82 mmHg Heart Rate 70 /min Respiratory Rate 16 /min Height 71.5 inches 5'11.50" Weight 211.00 lb BMI (Body Mass Index) 29.0 kg/m2 12/04/2009 3:32pm BP Systolic 124 mmHg BP Diastolic 82 mmHg Weight 230.00 lb Last Menstrual Period 0 11/11/2009 2:11pm BP Systolic 120 mmHg BP Diastolic 76 mmHg Height 71.75 inches 5'11.75" Weight 224.00 lb BMI (Body Mass Index) 30.6 kg/m2 09/21/2009 2:25pm BP Systolic 120 mmHg BP Diastolic 82 mmHg Body Temperature 97.8 F Weight 222.00 lb 06/23/2009 1:50pm BP Systolic 112 mmHg BP Diastolic 86 mmHg Body Temperature 97.7 F Height 71.50 inches 5'11.50" Weight 226.00 lb BMI (Body Mass Index) 31.1 kg/m2 03/26/2009 11:20am BP Systolic 124 mmHg BP Diastolic 80 mmHg Body Temperature 98.5 F Weight 228.00 lb 01/09/2009 4:05pm Weight 218.00 lb Last Menstrual Period 0 12/22/2008 4:13pm BP Systolic 110 mmHg BP Diastolic 66 mmHg Body Temperature 97.9 F Weight 214.00 lb Last Menstrual Period 0 12/11/2008 1:05pm BP Systolic 128 mmHg BP Diastolic 90 mmHg Weight 210.00 lb 11/05/2008 11:33am BP Systolic 112 mmHg BP Diastolic 64 mmHg Body Temperature 98.4 F Weight 207.00 lb Last Menstrual Period 0 08/20/2008 10:04am BP Systolic 112 mmHg BP Diastolic 72 mmHg Body Temperature 97.7 F Weight 203.00 lb 07/18/2008 10:12am BP Systolic 112 mmHg BP Diastolic 78 mmHg Weight 194.00 lb 06/06/2008 11:23am BP Systolic 106 mmHg BP Diastolic 74 mmHg Weight 180.00 lb 07/06/2007 9:01am BP Systolic 116 mmHg BP Diastolic 74 mmHg Height 71.50 inches 5'11.50" Weight 180.50 lb BMI (Body Mass Index) 24.8 kg/m2 06/26/2007 3:20pm BP Systolic 110 mmHg BP Diastolic 64 mmHg Weight 182.00 lb Last Menstrual Period 0 04/06/2007 4:29pm BP Systolic 116 mmHg BP Diastolic 74 mmHg Weight 184.00 lb 02/06/2007 1:28pm BP Systolic 98 mmHg BP Diastolic 68 mmHg Body Temperature 98.1 F 01/17/2007 11:38am BP Systolic 100 mmHg BP Diastolic 70 mmHg Body Temperature 99.0 F Weight 180.00 lb 10/20/2006 1:59pm BP Systolic 124 mmHg BP Diastolic 78 mmHg Body Temperature 98.5 F Height 71.50 inches 5'11.50" Weight 181.50 lb BMI (Body Mass Index) 25.0 kg/m2 09/27/2006 9:19am BP Systolic 110 mmHg BP Diastolic 70 mmHg Body Temperature 97.7 F Weight 188.00 lb Last Menstrual Period 0 04/06/2005 3:25pm BP Systolic 102 mmHg BP Diastolic 70 mmHg Weight 188.00 lb 10/30/2004 10:36am BP Systolic 120 mmHg BP Diastolic 80 mmHg Height 71 inches 5'11" Weight 182.00 lb BMI (Body Mass Index) 25.4 kg/m2 10/11/2004 1:11pm Heart Rate 76 /min reg Respiratory Rate 16 /min not laboured Body Temperature 97.7 F Weight 181.00 lb 09/13/2004 4:18pm BP Systolic 110 mmHg BP Diastolic 70 mmHg Heart Rate 80 /min Respiratory Rate 16 /min Height 71 inches 5'11" Weight 181.00 lb BMI (Body Mass Index) 25.2 kg/m2 05/27/2004 11:01am Body Temperature 98.4 F Weight 180.00 lb 10/21/2003 3:28pm Weight 168.50 lb 09/04/2003 2:54pm BP Systolic 116 mmHg BP Diastolic 78 mmHg Height 70.5 inches 5'10.50" Weight 161.00 lb BMI (Body Mass Index) 22.8 kg/m2 Results Test Date Facility Test Result H/L Range Note HSV/VZV Derm 04/04/2017 [facility] hs/VZ Source WOUND ON FOREHEA N 1 PCR [phone] <SEE NOTE> HSV 1 PCR Negative N Negative HSV 2 PCR Negative N Negative 2 Varicella Zoster Source WOUND ON FOREHEA <SEE NOTE> N 3 Varicella Zoster Result Negative N Negative 4 Laboratory test 05/24/2014 [facility] Surgical RUN DATE: 5 finding [phone] Pathology SEE NOTE> Laboratory test 02/14/2014 [facility] Rapid Influenza (SEE NOTE) 6 finding [phone] A B Antigen Xray 01/23/2014 [facility] X-Ray, Chest, 2 normal chest Views Throat-Beta Strept 06/09/2013 [facility] Throat Beta (SEE NOTE) 7 [phone] Strep Culture Urine Micro 06/29/2012 In House Ua WBC - Inhouse Ua RBC - Ua Casts - Ua Epi - Ua Other packed sediment Ua Glucose - Ua Bilirubin 1+ Ua Ketones mod Ua Specific Roslyn 1.010 Ua Blood - Ua PH 8.0 Ua Protein tr Ua Urobilinogen - Ua Nitrite - Ua Leukocytes - Surgical 04/06/2012 [facility] <SEE 8 Pathology [phone] Pathology NOTE> Laboratory test 02/21/2012 [facility] <SEE 9 finding [phone] Pathology NOTE> Laboratory test 02/14/2012 [facility] TSH 0.81 MIU/ML 0.34- finding [phone] 5.60 CBC Auto Diff 02/14/2012 [facility] White Blood 7.9 CUMM 4.8-1 [phone] Count 0.8 Red Cell Count 5.31 CUMM 4.6-6.2 Hemoglobin 16.5 g/dL 14.0-18.0 Hematocrit 47 % 42-52 Mean Corpuscular Volume 89 um3 80-94 Mean Corpuscular Hemoglob 31 pg 27-31 Mean Corpuscular HGB Cone 35 g/dL 32-36 Redcell Distribution WDTH 13 % 10.5-15 Platelet Count 170 CUMM 150-450 Mean Platelet Volume 9.4 um3 7.4-10.4 Gran % 65.2 % 38-83 Lymph % 28.2 % 25-47 Mononuclear % 5.4 % 1-9 Eosinophil % 0.8 % 0-6 Basophil % 0.4 % 0-2 Abs Lymphs 2.2 1.0-4.8 Abs Mononuclear 0.4 0-0.8 Absolute Neutrophil Count 5.1 1.5-7.7 Abs Eosinophils 0.1 0-0.6 Abs Basophils 0 0-0.2 Comp Metabolic Panel 02/14/2012 [facility] Sodium 138 mmol/L 135- 145 [phone] Potassium 4.2 mmol/L 3.5-5.0 Chloride 104 mmol/L 101-111 Co2 (Carbon Dioxide) 27.0 mmol/L 22-32 Anion Gap 7.0 mmol/L 2-11 10 Glucose 79 mg/dL 70-100 BUN 11 mg/dL 6-24 Creatinine 1.1 mg/dL 0.50-1.40 One Over Creatinine 0.90 BUN/Creatinine Ratio 10.0 8-20 Calcium 9.4 mg/dL 8.1-9.9 Total Protein 7.6 GM/DL 6.2-8.1 Albumin 4.9 GM/DL 3.6-5.4 Globulin 2.7 GM/DL 2-4 Albumin/Globulin Ratio 1.8 1-3 Bilirubin Total 0.8 mg/dL 0.4-1.5 11 Alkaline Phosphatase 54 U/L 39-117 Alt (SGPT) 17 U/L 17-63 Ast (Sgot) 17 U/L 12-42 eGFR Non- 82.2 > 60 eGFR 105.8 > 60 12 Urine Micro Inhouse 02/14/2012 In House Ua WBC - Ua RBC - Ua Casts - Ua Epi - Ua Other - Ua Glucose - Ua Bilirubin - Ua Ketones - Ua Specific Roslyn 1.020 Ua Blood - Ua PH 5.0 Ua Protein - Ua Urobilinogen - Ua Nitrite - Ua Leukocytes - Surgical 12/22/2009 [facility] Surgical 13, 14 Pathology [phone] Pathology <SEE NOTE> Laboratory 12/22/2009 [facility] Gastrin 38 pg/mL () 15 test finding [phone] Laboratory 12/22/2009 [facility] Clotest N^NEGATIVE^ALVINA test finding [phone] Liver Function 11/11/2009 [facility] Total Protein 7.0 GM/DL 6.2- Panel [phone] 8.1 Albumin 4.1 GM/DL 3.6-5.4 Globulin 2.9 GM/DL 2-4 Albumin/Globulin Ratio 1.4 1-3 Bilirubin Total 0.7 mg/dL 0.4-1.5 16 Bilirubin Direct 0.1 mg/dL 0.1-0.5 Indirect Bilirubin 0.6 mg/dL 0.1-0.75 Alkaline Phosphatase 69 U/L 39-117 Alt (SGPT) 44 U/L 17-63 Ast (Sgot) 31 U/L 12-42 Laboratory test 11/11/2009 [facility] Glucose 86 mg/dL 70-100 17 finding [phone] Lipid Profile 11/11/2009 [facility] Triglyceride 332 mg/dL High 40- 200 (Trig/Chol/HDL) [phone] Cholesterol 236 mg/dL High Less Than 200 18 High Density Lipoprotein 32 mg/dL Low 40-60 19 Cholesterol/HDL Ratio 7.38 AVERAGE High 1-4.97 Low Density Lipoprotein 138 mg/dL High Less Than 100 20 CBC With Manual 11/11/2009 [facility] White Blood Count 7.0 CUMM 4.8 -10.8 Diff [phone] Red Cell Count 5.45 CUMM 4.6-6.2 Hemoglobin 17.1 g/dL 14.0-18.0 Hematocrit 48 % 42-52 Mean Corpuscular Volume 88 um3 80-94 Mean Corpuscular Hemoglob 31 pg 27-31 Mean Corpuscular HGB Cone 36 g/dL 32-36 Redcell Distribution WDTH 13 % 10.5-15 Platelet Count 168 CUMM 150-450 Mean Platelet Volume 8.6 um3 7.4-10.4 Polysegmented Neutrophil 59 % 38-83 Lymphocyte 28 % 25-47 Monocyte 12 % 0-13 Atypical Lymph 1 % 0-6 Absolute Neutrophil Count 4.1 RBC Morphology NORMAL Laboratory test 12/11/2008 [facility] Surgical condyloma acum 21, 22 finding [phone] Pathology Ua Inhouse 11/05/2008 In House Ua Glucose - 23 Ua Bilirubin orange see note Ua Ketones - Ua Specific Roslyn 1.010 Ua Blood - Ua PH 7.5 Ua Protein ++ Ua Urobilinogen - Ua Nitrite - Ua Leukocytes - Throat-Beta Strep 01/18/2008 [facility] Throat-Beta Strep NBS 24 [phone] Culture Xray 06/26/2007 [facility] X-Ray, Wrist, Normal 25 Complete, Min. Of 3 Views L Laboratory test 10/23/2006 In House Culture Throat neg finding Rapid Screen Culture Throat neg 1 WOUND ON FOREHEAD 2 ADDITIONAL INFORMATION This test was developed using an analyte specific reagent. Its performance characteristics were determined by [facility] in a manner consistent with CLIA requirements. This test has not been cleared or approved by the U.S. Food and Drug Administration. 3 WOUND ON FOREHEAD 4 ADDITIONAL INFORMATION This test was developed and its performance characteristics determined by [facility] in a manner consistent with CLIA requirements. This test has not been cleared or approved by the U.S. Food and Drug Administration. Test Performed by: [facility] [place] [address] 5 RUN DATE: 05/28/14 [facility] LAB LIVE PAGE 1 RUN TIME: [address] [place] [address] Specimen Inquiry Name: TIMOTHY PALOMINO : [address]: Sanjiv Encarnacion MD Acct: [id number] Unit: [id number] AGE: 28 Location: [facility] Re05/24/14 SEX: M Status: REG REF SPEC: [id number] MANI: 05/24/14-[address] [facility] [address]: Sanjiv Encarnacion MD REQ: [id number] RECD: 05/26/14 STATUS: SOUT _ ORDERED: LEVEL IV FINAL DIAGNOSIS Skin, mid abdomen, biopsy: Seborrheic keratosis, excised. PRE-OPERATIVE DIAGNOSIS Seborrheic keratosis, neoplasm uncertain. GROSS DESCRIPTION The specimen is received in formalin labeled Timothy Palomino, Skin Mid Abd and consists of a 1.3 x 0.9 cm. chou-white irregular hair bearing skin shave with a central 1.1 x 0.8 x 0.4 cm. black-koehler slightly granular nodule. The specimen is inked, quadrisected and submitted entirely in one cassette. Signed (signature on file) Jania Call MD 08/03 1541 END OF REPORT * ML=Testing performed at Main Lab DEPARTMENT OF PATHOLOGY, [facility] [employer] [place] [address] Jose Boateng M.D. Director JOEY # [id number] RUN DATE: 02/14/14 [facility] LAB LIVE PAGE 1 RUN TIME: 2116 [facility] [employer] [place], [place] [address] Specimen Inquiry Name: TIMOTHY PALOMINO Julian : [address]: Paco Castelan DO Acct: [id number] Unit: [id number] AGE: 28 Location: [facility] Re02/14/14 SEX: M Status: REG REF SPEC: [id number] MANI: 02/14/14-[address]: Paco Castelan DO REQ: [id number] RECD: 02/14/14 STATUS: COMP _ SOURCE: [facility]: ORDERED: Rapid Flu A B QUERIES: Medent Number [id number] Procedure Result Verified Site Rapid Influenza A B Antigen Final 02/14/14- 2116 ML Organism 1 Negative Influenza A Organism 2 Negative Influenza B Antigen testing by enzyme immunoassay. Cell culture testing can be performed to confirm negative test results and to assist in detecting other viruses that can produce similar clinical symptoms. Please notify Microbiology Lab if further testing is desired. END OF REPORT * ML=Testing performed at Main Lab DEPARTMENT OF PATHOLOGY, [facility] [employer] [place], [place] [address] Jose Boateng M.D. Director [facility] Permit #[id number] RUN DATE: 06/12/13 [facility] LAB LIVE PAGE 1 RUN TIME: 8156 [facility] [employer] [place], [place] [address] Specimen Inquiry Name: TIMOTHY PALOMINO : [address]: Ok Pritchett MD Acct: [id number] Unit: [id number] AGE: 27 Location: [facility] Re06/09/13 SEX: M Status: DEP ER SPEC: [id number] MANI: 06/09/13-[address] [facility] [address]: Ok Pritchett MD REQ: [id number] RECD: 06/10/13 STATUS: MARY ANNE DR: DARIEN Encarnacion MD _ SOURCE: THROAT SPDESC: ORDERED: Throat Beta Str Procedure Result Verified Site Throat Beta Strep Culture Final 06/12/13- 0856 ML Negative For Group A Beta Streptococcus END OF REPORT * ML=Testing performed at Main Lab DEPARTMENT OF PATHOLOGY, [address] [place] [address] Jose Boateng M.D. Director [facility] Permit #[id number] --- RUN DATE: 04/10/12 [facility] NMI LIVE PAGE 1 RUN TIME: 1405 Specimen Inquiry RUN USER: INTERFACE -- Name: TIMOTHY PALOMINO Status: REG REF Re04/06/12 Age/Sex: 26/M Unit#: [id number] Location: [address] [place] [address]. : [birth year] -- Specimen: [id number] SOUT Spec Date:04/06/12- [facility] Dr: Wilfred Velez MD Spec Type: SURGICAL P Received:04/09/12 Copies to: Sanjiv zuniga MD SPECIMEN BIOPSY DUODENUM HISTORY POST-OP DIAGNOSIS: Gastroesophageal reflux disease with mild erosive esop hagitis; rule out "celiac" biopsy done CLINICAL INFORMATION: Weight loss; reflux GROSS DESCRIPTION The specimen is received in formalin labelled Timothy Palomino, Biopsy Duodenum, and consists of multiple chou soft tissue fragments measuring 1.0 x 0.6 x 0.2 cm. in aggregate. Submitted entirely, one cassette. DIAGNOSIS Small bowel, duodenum, biopsy: Small bowel mucosa with normal villous architecture and no significant pathologic abnormality. Signed Electronically by: JOSE BOATENG MD 04/10/12 3611 -- -- DEPARTMENT OF PATHOLOGY, [address] [place] [address] [facility] Permit #[id number] Riccardo Otero M.D. Supervisor Audit Clerks Dir carroll -- 9 --- RUN DATE: 02/23/12 [facility] NMI LIVE PAGE 1 RUN TIME: 4035 Specimen Inquiry RUN USER: INTERFACE -- Name: TIMOTHY PALOMINO Status: REG REF Re02/21/12 Age/Sex: 26/M Unit#: [id number] [facility] [birth year] -- Specimen: [id number] [facility] Spec Date:02/21/[address] [facility] [address]: Jeffy schroeder MD Spec Type: SURGICAL P Received:02/22/12 Copies to: SPECIMEN 5 X 3 MM IRREGULARLY SHAPED BUT WELL CIRCUMSCRIBED PAPULAR NEVUS, SLIGHTLY DRY/SCALY WITH A SMALL ERYTHEMATOUS PORTION UP TO APPROXIMATELY 2 MM INFERIORLY HISTORY PRE-OP DIAGNOSIS: Neoplasm uncertain CLINICAL INFORMATION: Present for unknown length of time, location from a bdomen slightly below umbilicus GROSS DESCRIPTION The specimen is received in formalin labelled Timothy Palomino, and consists of a chou-brown ovoid scaly skin fragment measuring 0.6 x 0.4 x 0.2 cm. The specimen is serially sectioned along it's short axis. Submitted entirely, one cassette. DIAGNOSIS Skin, site unspecified, shave biopsy: Seborrheic keratosis. Signed Electronically by: JOSE BOATENG MD 02/23/12 1948 -- -- DEPARTMENT OF PATHOLOGY, [address] [place] [address] [facility] Permit #[id number] Jose Boateng M.D. Director Giovanni Simmons M.D. Supervisor Audit Clerks Dir carroll -- 10 Anion gap measurement may be of limited value in the presence of any alkalosis, especially in a combined acid base disorder. . 11 A metabolite of Naproxen, O-desmethylnaproxen, has been shown to interfere with the Jendrassik-Rheems method for measuring total bilirubin. Samples from patients who have taken Naproxen have shown spurious elevation in total bilirubin levels. 12 Because ethnic data is not always readily available, this report includes an eGFR for both -Americans and non- Americans. The National Kidney Disease Education Program (NKDEP) does not endorse the use of the MDRD equation for patients that are not between the ages of 18 and 70, are , have extremes of body size, muscle mass, or nutritional status, or are non- or non-. According to the National Kidney Foundation, irrespective of diagnosis, the stage of the disease is based on the level of kidney function: Stage Description GFR(mL/min/1.73 m(2)) 1 Kidney damage with normal or decreased GFR 90 2 Kidney damage with mild decrease in GFR 60-89 3 Moderate decrease in GFR 30-59 4 Severe decrease in GFR 15-29 5 Kidney failure <15 (or dialysis) 13 severe atypia 14 ---- RUN DATE: 12/31/09 [facility] NMI LIVE PAGE 1 RUN TIME: 1014 Specimen Inquiry RUN USER: INTERFACE -- Name: TIMOTHY PALOMINO Status: REG REF Re12/22/09 Age/Sex: 24/M Unit#: [id number] Location: [facility] : [birth year] -- Specimen: [id number] SOUT Spec Date: 12/22/[address]: Wilfred Velez MD Spec Type: SURGICAL P Received: 12/22/09-8191 Copies to: Sanjiv zuniga MD SPECIMEN BIOPSY ESOPHAGOGASTRIC JUNCTION HISTORY PRE-OP DIAGNOSIS: Erosive esophagitis POST-OP DIAGNOSIS: Severe gastroesophageal reflux disease CLINICAL INFORMATION: Gastroesophageal reflux disease GROSS DESCRIPTION The specimen is received in formalin labelled Timothy Palomino, Biopsy EG Junction, and consists of multiple fragments of chou-koehler tissue ranging in size from 0.2 cm. to 0.4 x 0.3 x 0.3 cm. Submitted entirely, one cassette. DIAGNOSIS GE junction, biopsy: A. Squamous mucosa with marked reactive changes and severe atypia. B. Superficial mixed eosinophilic and neutrophilic infiltrate is also seen. C. GMS stain shows no evidence of fungal elements. COMMENT DR Boateng agrees with the diagnosis. Signed Electronically by: GIOVANNI SIMMONS 12/31/09 1014 -- -- DEPARTMENT OF PATHOLOGY, [address] [place] [address] [facility] Permit #[id number] Jose Boateng M.D. Director Giovanni Simmons M.D. Supervisor Audit Clerks Dir carroll -- 15 -- REFERENCE VALUE -- <100 Reference ranges valid for >=8 hour fast. Test Performed by: [facility] Dpt of Lab Med and Pathology [address] [place] [address] [employer] Operator: Kurtis Schafer III, M.D. 16 A metabolite of Naproxen, O-desmethylnaproxen, has been shown to interfere with the Jendrsherylik-Katia method for measuring total bilirubin. Samples from patients who have taken Naproxen have shown spurious elevation in total bilirubin levels. 17 Note change in reference range as of 07/10/08. The change was based on recommendations from the [place] [employer]. 18 CHOLESTEROL INTERPRETATION: Desirable: Less than 200 MG/DL Borderline-High Risk: 200-239 MG/DL High-Risk: 240 MG/DL and over 19 HDL INTERPRETATION: Undesirable: High Risk: Less than 40 MG/DL Desirable: Low Risk: Greater than 60 MG/DL 20 LDL INTERPRETATION: Low Risk Optimal Level: LDL Less than 100 MG/DL Near or Above Optimal: LDL 100-129 MG/DL Borderline High Risk: LDL 130-159 MG/DL High Risk: LDL 160-189 MG/DL Very High Risk: LDL Greater than 189 MG/DL 21 12/09/08 pt calls and is very anxious for results, given. WILLY 22 ---- RUN DATE: 12/15/08 [facility] NMI LIVE PAGE 1 RUN TIME: 1517 Specimen Inquiry RUN USER: INTERFACE -- [id number] Status: REG REF Re12/11/08 Age/Sex: 23/M Unit#: [id number] Location: [facility] : [birth year] -- Specimen: [id number] SOUT Spec Date: 12/11/[address]: Sanjiv ordonez MD Spec Type: SURGICAL P Received: 12/12/08 Copies to: SPECIMEN PROBABLE GENITAL WART TO PUBIC AREA HISTORY PRE-OP DIAGNOSIS: Probable genital wart. CLINICAL INFORMATION: Discovered this week, without symptoms, excisional biopsy with scissors. GROSS DESCRIPTION The specimen is received in formalin labelled Timothy Palomino, and consists of a fragment of chou-koehler tissue measuring 0.5 x 0.5 x 0.3 cm. Bisected. Submitted entirely, one cassette. DIAGNOSIS Skin, pubic area, excision: Condyloma acuminata. Signed Electronically by: JOSE BOATENG MD 12/15/08 1517 -- -- DEPARTMENT OF PATHOLOGY, [address] [place] [address] [facility] Permit #[id number] Jose Boateng M.D. Director Giovanni Simmons M.D. Supervisor Audit Clerks Dir carroll -- 23 orange result not part of the strip test indications, but clearly a change 24 NEGATIVE FOR GROUP A STREP 25 No fractures or dislocations in left wrist Procedures Date Code Description Status 01/02/2017 03118 Destruction Of Skin Lesions Up To 14 Flat Warts/Molluscum Completed Contag 09/26/2016 35847 Destruction Of Skin Lesions Up To 14 Flat Warts/Molluscum Completed Contag 07/31/2014 89425 Omt 7-8 Body Regions Completed 05/24/2014 34471 Shave Skin Lesion 1.1-2CM Trunk/Arm/Leg Completed 05/19/2014 09998 Destruction Of Skin Lesions Up To 14 Flat Warts/Molluscum Completed Contag 01/23/2014 58890 Electrocardiogram Complete Completed 01/23/2014 07753 X-Ray Chest Two Views Completed 12/26/2013 35039 Omt 3 To 4 Body Regions Involved Completed 07/26/2013 32402 Destruction Of Skin Lesions Up To 14 Flat Warts/Molluscum Completed Contag 02/21/2012 87332 Shave Skin Lesion .6-1CM Trunk/Arm/Leg Completed 12/04/2009 20280 Destruction Of Skin Lesions Up To 14 Flat Warts/Molluscum Completed Contag 03/26/2009 01674 Tympanometry Completed 01/09/2009 53696 Tympanometry Completed 01/09/2009 49359 Destruction Of Skin Lesions Up To 14 Flat Warts/Molluscum Completed Contag 12/11/2008 57921 Destruction Of Skin Lesions Up To 14 Flat Warts/Molluscum Completed Contag 12/11/2008 10324 Biopsy Skin Lesion Single Completed 06/26/2007 57022 X-Ray Wrist Three Views Completed 10/11/2004 01310 Bronchospasm Evaluation Pre & Post Completed 05/27/2004 70111 Tympanometry Completed 10/21/2003 92626 Bronchospasm Evaluation Pre & Post Completed Encounters Type Date Location Provider Dx Diagnosis Office Visit 10/08/2018 Main Office Paco Castelan, F33.1 Major depressive 2:30p D.O. disorder, recurrent, moderate F60.3 Borderline personality disorder F41.9 Anxiety disorder, unspecified J30.9 Allergic rhinitis, unspecified J45.40 Moderate persistent asthma, uncomplicated Office Visit 08/17/2017 10:20a Main Office Laura Candelaria, H72.90 Unsp perforation of P.A. tympanic membrane, unspecified ear H81.42 Vertigo of central origin, left ear Office Visit 05/01/2017 3:30p Main Office Paco Castelan, F33.1 Major depressive D.O. disorder, recurrent, moderate F60.3 Borderline personality disorder Z00.00 Encntr for general adult medical exam w/o abnormal findings Office Visit 01/02/2017 1:15p Main Office Paco Castelan, D.O. B07.8 Other viral warts J45.30 Mild persistent asthma, uncomplicated F60.3 Borderline personality disorder Office Visit 11/03/2016 2:15p Main Office Sanjiv Jeter F60.3 Borderline Riccardo Encarnacion personality disorder F33.1 Major depressive disorder, recurrent, moderate Office Visit 09/26/2016 2:45p Main Office Flip, S06.0x0D Concussion without Paco, D.O. loss of consciousness, subs encntr E78.2 Mixed hyperlipidemia R51 Headache R63.4 Abnormal weight loss B07.8 Other viral warts Z13.850 Encounter for screening for traumatic brain injury S06.0x0A Concussion without loss of consciousness, initial encounter Office Visit 09/13/2016 1:15p Main Office Flip S06.0x0A Concussion without Paco, D.O. loss of consciousness, initial encounter R51 Headache G47.00 Insomnia, unspecified Office Visit 10/30/2014 9:30a Main Office Paco Castelan, 078.10 Viral Warts D.O. Unspec v04.81 Need For Prophylactic Vaccination & Inoculation/Influenza v07.2 Prophylactic Immunotherapy Office Visit 07/31/2014 11:30a Main Office Paco Castelan, 739.0 Lesion Nonallopathic D.O. Head Region Not Elsewhere Class 739.1 Lesion Nonallopathic Cervical Region Not Elsewhere Class 739.2 Lesion Nonallopathic Thoracic Region Not Elsewhere Class 739.3 Lesion Nonallopathic Lumbar Region Not Elsewhere Class 739.4 Lesion Nonallopathic Sacral Region Not Elsewhere Class 739.5 Lesion Nonallopathic Pelvic Region Not Elsewhere Class 739.8 Lesion Nonallopathic Rib Cage Not Elsewhere Class 729.1 Myalgia & Myositis Unspec 723.1 Cervicalgia 477.0 Rhinitis Allergic Due To Pollen 530.81 Esophageal Reflux V68.1 Prescriptions Repeat Issue Office Visit 05/19/2014 3:00p Main Office Paco Castelan, 078.10 Viral Warts D.O. Unspec 381.4 Otitis Media Acute Or Chronic Nonsuppurative Office Visit 02/14/2014 3:00p Main Office Paco Castelan, 461.0 Sinusitis Acute D.O. Maxillary 786.2 Cough 466.0 Bronchitis Acute 272.5 Lipoprotein Deficiencies 487.1 Influenza W/ Other Respiratory Manifestations Office Visit 01/23/2014 8:55a Main Office Paco Castelan D.O. 786.2 Cough 466.0 Bronchitis Acute 786.09 Dyspnea & Respiratory Abnormalities Other 786.50 Pain Chest Unspec 726.19 Shoulder Disorders Other Spec Office Visit 12/26/2013 9:30a Main Office Paco Castelan, 382.02 Otitis Media Acute D.O. Suppurative Diseases Class Elsewhere 461.0 Sinusitis Acute Maxillary 726.19 Shoulder Disorders Other Spec 564.00 Constipation Unspecified 739.1 Lesion Nonallopathic Cervical Region Not Elsewhere Class 739.2 Lesion Nonallopathic Thoracic Region Not Elsewhere Class 739.8 Lesion Nonallopathic Rib Cage Not Elsewhere Class Office Visit 09/18/2013 2:00p Main Office Laura Candelaria, 692.6 Dermatitis Contact P.A. Due To Plants (Except Food) Office Visit 08/31/2013 10:15a Main Office Paco Castelan, 305.1 Tobacco Use D.O. Disorder 490 Bronchitis Acute Or Chronic Not Spec 461.0 Sinusitis Acute Maxillary Office Visit 07/26/2013 4:59p Main Office Sanjiv Jeter 078.19 Viral Warts Spec Riccardo Encarnacion Other Office Visit 11/05/2012 1:10p Main Office Sanjiv Jeter 724.2 Lumbago Riccardo Encarnacion Office Visit 10/12/2012 11:15a Main Office Laura Teagan, 381.29 Otitis Media P.A. Chronic Media Other 477.9 Rhinitis Allergic Cause Unspec Office Visit 06/29/2012 3:45p Main Office Sanjiv Jeter 530.81 Esophageal Reflux Riccardo Encarnacion V65.49 Counseling Other Spec 788.63 Urgency Of Urination v03.82 Streptococcus Pneumoniae Vaccination Spec Other v07.2 Prophylactic Immunotherapy Office Visit 02/21/2012 9:45a Main Office Jeffy Sharma, 238.2 Neoplasm Uncertain M.D. Skin 783.21 Loss Of Weight 530.81 Esophageal Reflux 783.0 Anorexia Office Visit 02/14/2012 1:45p Main Office Jeffy Sharma, 783.21 Loss Of Weight M.D. 238.2 Neoplasm Uncertain Skin 530.81 Esophageal Reflux 783.0 Anorexia Office Visit 12/22/2011 2:15p Main Office Sanjiv Jeter 530.81 Esophageal Reflux Riccardo Encarnacion 301.83 Borderline Personality Disorder Office Visit 11/05/2010 4:15p Main Office Sanjiv Jeter 530.81 Esophageal Reflux Riccardo Encarnacion 278.02 Overweight 314.00 Attention Deficit Disorder W/O Mention Of Hyperactivity 296.89 Bipolar Disorder NEC V04.81 Need For Prophylactic Vaccination & Inoculation/Influenza V07.2 Prophylactic Immunotherapy Office Visit 12/04/2009 3:00p Main Office Sanjiv Jeter 216.4 Benign Neoplasm Riccardo Encarnacion Skin Scalp & Neck 314.00 Attention Deficit Disorder W/O Mention Of Hyperactivity 296.89 Bipolar Disorder NEC 278.02 Overweight Office Visit 11/11/2009 1:45p Main Office Sanjiv Jeter 680.6 Carbuncle & Riccardo Encarnacion Furuncle Leg Except Foot 296.89 Bipolar Disorder NEC 530.81 Esophageal Reflux Office Visit 09/21/2009 2:30p Main Office Sanjiv Jeter 381.81 Eustachian Tube Riccardo Encarnacion Dysfunction Office Visit 06/23/2009 1:40p Main Office Sanjiv Jeter 466.0 Bronchitis Acute Riccardo Encarnacion 787.1 Heartburn 305.1 Tobacco Use Disorder Office Visit 03/26/2009 11:00a Main Office Sanjiv Encarnacion M.D. 787.1 Heartburn 477.0 Rhinitis Allergic Due To Pollen 296.89 Bipolar Disorder NEC 314.00 Attention Deficit Disorder W/O Mention Of Hyperactivity 381.81 Eustachian Tube Dysfunction Office Visit 01/09/2009 4:00p Main Office Sanjiv Jeter 381.81 Eustachian Tube Riccardo Encarnacion Dysfunction 303.90 Alcohol Dependence Other & Unspec 078.19 Viral Warts Spec Other Office Visit 12/22/2008 3:45p Main Office Sanjiv Jeter 382.00 Otitis Media Riccardo Encarnacion Suppurative Acute Office Visit 12/11/2008 1:05p Main Office Sanjiv Jeter 238.2 Neoplasm Uncertain Riccardo Encarnacion Skin 216.5 Benign Neoplasm Skin Trunk Except Scrotum Office Visit 11/05/2008 11:15a Main Office Rama Painter MD 008.69 Enteritis Due To Other Viral Enteritis Office Visit 08/20/2008 9:45a Main Office Zachary 493.12 Intrinsic Asthma Riccardo Bardales With Acute Exacerbation 466.0 Bronchitis Acute 787.91 Diarrhea 305.1 Tobacco Use Disorder V04.81 Need For Prophylactic Vaccination & Inoculation/Influenza V07.2 Prophylactic Immunotherapy Office Visit 07/18/2008 10:15a Main Office Sanjiv Jeter 780.79 Malaise And Riccardo Encarnacion Fatigue Other 296.89 Bipolar Disorder NEC Office Visit 06/06/2008 11:15a Main Office Sanjiv Jeter 882.0 Open Wound Hand Riccardo Encarnacion Except Finger(S) W/O Complication 780.79 Malaise And Fatigue Other 296.89 Bipolar Disorder NEC 309.1 Depressive Reaction Prolonged Office Visit 07/06/2007 8:55a Main Office Jeffy Sharma, 842.00 Sprains & Strains M.D. Wrist & Hand Unspec Site 719.43 Pain Joint Forearm Office Visit 06/26/2007 3:15p Main Office Jeffy Sharma, 719.43 Pain Joint M.D. Forearm 842.00 Sprains & Strains Wrist & Hand Unspec Site Office Visit 04/06/2007 4:30p Main Office Sanjiv Jeter 493.90 Asthma Unspec W/O Riccardo Encarnacion Status Asthmaticus 305.1 Tobacco Use Disorder Office Visit 02/06/2007 1:30p Main Office Jeffy Sharma, 891.0 Open Wound Knee Leg M.D. (Except Thigh) & Ankle W/O Complication V06.1 Wyfqiybhwf-Eajzmkm-Bliozrkn Combined (DTaP) V07.2 Prophylactic Immunotherapy Office Visit 01/17/2007 11:30a Main Office Rama Painter MD 466.0 Bronchitis Acute Office Visit 10/20/2006 1:45p Main Office fabricio 462 Pharyngitis Acute 787.01 Nausea W/ Vomiting 780.6 Fever Office Visit 09/27/2006 9:15a Main Office Zachary 381.00 Otitis Media Riccardo Bardales Nonsuppurative Acute Unspec Office Visit 04/06/2005 3:15p Main Office Zachary 845.00 Sprains & Strains Riccardo Bardales Ankle Unspec Site Office Visit 10/30/2004 10:30a Main Office Zachary, 110.3 Dermatophytosis Groin Riccardo Bardales & Perianal Area Office Visit 10/11/2004 1:15p Main Office Zachary 493.12 Intrinsic Asthma With Riccardo Bardales Acute Exacerbation 305.1 Tobacco Use Disorder Office Visit 09/13/2004 3:15p Main Office Sanjiv Encarnacion, V20.2 Routine Infant Or M.D. Child Health Check 314.00 Attention Deficit Disorder W/O Mention Of Hyperactivity 296.89 Bipolar Disorder NEC V81.6 Screening For Genitourinary Conditions Other & Unspec Office Visit 05/27/2004 11:00a Main Office fabricio 381.02 Otitis Media Mucoid Acute Office Visit 10/21/2003 3:20p Main Office Marine 314.00 Attention Deficit Kanika, N.P. Disorder W/O Mention Of Hyperactivity 706.1 Acne Other 493.90 Asthma Unspec W/O Status Asthmaticus Office Visit 09/18/2003 3:40p Main Office Marine 493.00 Asthma Extrinsic Kanika, N.P. Unspecified 465.9 URI Upper Respiratory Infections Acute Unspec Sites Office Visit 09/04/2003 3:00p Main Office Marine, 381.00 Otitis Media Marcy Boudreaux Nonsuppurative Acute Unspec 493.12 Intrinsic Asthma With Acute Exacerbation Plan of Treatment Future Appointment(s):11/08/2018 3:45 pm - Paco Castelan D.O. at Main [facility]10/08/2018 - Paco Castelan D.O.F33.1 Major depressive disorder, recurrent, sbgojzseY34.3 Borderline personality fljbwvazH13.9 Anxiety disorder, unspecifiedNew Medication:Buspirone HCL 7.5 mg - 1 cap by mouth twice a dayKlonopin 0.5 mg - take 1 every 8 hours as needed for anxietyComments: Reference #: [id number] up:1 month recheck anxiety with GAD7 and HUY3V98.9 Allergic rhinitis, unspecifiedNew Medication:Loratadine 10 mg - take 1 tablet daily at bedtime for lghczjwfiN16.40 Moderate persistent asthma, uncomplicatedNew Medication:Symbicort 160-4.5 mcg/Act - inhale 2 puffs by mouth twice a day gargle after useProair HFA 108(90 Base) mcg/Act - 1-2 puffs four times a day as needed
--- OUTSIDE RECORDS SUMMARY | 2018-10-27 10:14 | XMS REPORT | Continuity of Care Document ---
:1985 External Reference #:[id number] Author Name Paco Castelan D.O. Address [address] [place] [address] Care Team Providers Name Role Phone HCP given Primary Care Physician Unavailable Payers Type Date Identification Numbers Payment Provider Subscriber Effective: Policy Number: [id number] Gonzalez/[employer] (MARISA Palomino 2007 MGD) Group Name: Seq#05 [address] [address] PayID: [id number] [place] [address] Policy Number: [id number] [facility] Timothy Palomino PayID: [id number] [address] [place] [address] Advance Directives Description No Information Available Problems [...] D.O. Active Onset: 09/26/2016 Mixed hyperlipidemia Paco Castelan D.O. Active Family History Date [...] his Father's Occupation Shanique Mcfadden Mother's Occupation Office Cleaner Customer Resolution Specialist No Daycare Needed Allergies, Adverse Reactions, Alerts Description No Known Drug Allergies Medications Medication Date Status Form Strength Qnty SIG Indications Ordering Provider No Active 10/08 Active Unknown Medications Qvar Redihaler 01/09 Hx Aerosol 80mcg/Act 31.8g Inhale 2 [place]ak m puffs by Paco, - mouth 2 times D.O. 10/07 per day for asthma Qvar 11/07 Hx Aerosol 40mcg/Act 26.1g 2 puffs twice Sopchak m a day rinse Paco, - mouth after D.O. 01/09 use Arnuity 11/03 Hx Aerosol 100mcg/Ac 30uni Inhale 2 S[place]ak, Ellip t ts puffs by Paco, - mouth daily D.O. 11/07 for asthma /2017 Cefdinir 08/17 Hx Capsules 300mg 20cap 1 cap bid x H72.90 Silcoff, s 10 days for Jeffy, - ear infection M.D. 08/26 Prednisone 08/17 Hx Tablets 20mg 5tabs 1 per morning H72.90 Silcoff, x 5 days for Jeffy, - sevre ear M.D. 10/07 pain Meclizine HCL 08/17 Hx Tablets 25mg 24tab 1 tid-qid as H81.42 Silcoff, s needed for Jeffy, - room spinning M.D. 08/26 dizziness Ventolin HFA 01/02 Hx Aerosol 108(90Bas 16gm inhale 2 J20.9 Sopchak, e) puffs by Paco, - mcg/Act mouth every 4 D.O. 10/07 hours as needed for bronchospasm Pulmicort 01/02 Hx Aerosol 90mcg/Act 240pu 2 puffs 466.0 Sopchak, Flexhal ffss 1-2x/day; Paco, - Every day for D.O. 11/03 control of asthma to not wake up coughing Clonazepam 09/25 Hx Tablets 1mg 1 1/2 tabs po Member prn Erick, - [facility] 10/07 Amitriptyline 09/13 Hx Tablets 10mg 30tab 1 by mouth G47.00 S[place]chak, HCL s every night Paco, - at bedtime D.O. 09/13 Fluticasone 07/31 Hx Suspension 50mcg/Act 3unit 2 sprays into 477.0 S[place]chak, Propionate s each nostril Paco, - every day for D.O. 09/25 nasal congestion. hannah allergies. rinse mouth post 477.0 Ventolin HFA 07/31/2014 - Hx Aerosol 108(90Base) 2units inhale 2 477.0 Sopchak, 09/25/2016 mcg/Act puffs by Paco, D.O. mouth every 4 hours as needed for cough or wheezing Tramadol HCL 07/31/2014 - Hx Tablets 50mg 40tabs 1-2 by 729.1 [place]ak, 08/30/2014 mouth every Paco, D.O. 6 hours as needed for pain 723.1 Zyrtec Allergy 07/31/2014 - Hx Capsules 10mg 30caps 1-2 cap by 477.0 [facility], 09/25/2016 mouth every Paco, day D.O. Lansoprazole 07/31/2014 - Hx Capsules DR 30mg 30caps 1 po daily as 530.81 [facility], 08/30/2014 needed Paco, D.O. Azithromycin 02/14/2014 - Hx Tablets 500mg 6tabs take 1 tablet 461.0 [facility], 04/29/2014 by mouth daily Paco, for 3 days for D.O. infection Pulmicort 01/23/2014 - Hx Aerosol 90mcg/ 240puffs 2 puffs 466.0 [facility] Lianneer 01/02/2017 Act s 1-2x/day; to Paco, be used when D.O. flovent not available Amoxicillin/Cla 01/23/2014 - Hx Tablets 875-12 14tabs 1 by mouth 466.0 [facility] bryananate 01/30/2014 5mg twice a day Paco, Potassium D.O. Amoxicillin/Cla 12/26/2013 - Hx Tablets 875-12 20tabs 1 by mouth 382.02 [facility] bryananate 01/21/2014 5mg twice a day Paco, Potassium D.O. Triamcinolone 09/18/2013 - Hx Cream 0.5% 80gm apply 2-3 692.6 Silcoff, Acetonide 10/02/2013 x/day up to 2 rehan Bardales M.D. Biaxin 08/31/2013 - Hx Tablets 500mg 20tabs 1 cap by mouth 490 [facility], 09/10/2013 twice a day Paco, D.O. Ventolin HFA 08/31/2013 - Hx Aerosol 108(90 1units inhale 2 puffs 477.0 [facility], 07/31/2014 Base) by mouth every Paco, mcg/Ac 4 hours as D.O. t needed for cough or wheezing Chantix 08/31/2013 - Hx Tablets 0.5mg 1tabs Take as 305.1 [facility], Starting Month 12/26/2013 X 11 & directed Paco, Byron 1 mg X D.O. 42 Flonase 08/31/2013 - Hx Suspension 50mcg/ 3units inhale 2 477.0 Sopchak , 07/31/2014 Act sprays into Paco, nostril daily D.O. in each nostril for nose inflammation 477.0 Tramadol HCL 11/05/2012 - Hx Tablets 50mg 40tabs 1 po q 6 724.2 Sanjiv A. 08/31/2013 hrs prn Klepack, pain M.D. Flexeril 11/05/2012 - Hx Tablets 10mg 30tabs 1 po tid 724.2 Sanjiv A. 08/31/2013 prn for Klepack, muscle M.D. relaxation/ [...] 50mcg/ 1units 2 sprays to 381.81 Sanjiv A. 10/21/2009 Act each Klepack, nostril qd M.DMeghana prn for nasal allergies Clarithromycin 06/23/2009 - Hx 250mg 20units 1 po bid 466.0 Sanjiv Jeter 07/03/2009 until gone Riccardo Encarnacion use this instead of the brand name Concerta 06/12/2009 - Hx Tablets ER 18mg 30tabs 1 po qam Member, 12/21/2011 MD Erick [facility] Omeprazole 40 MG 03/26/2009 - Hx Capsules 30caps 1 qam on 787.1 Sanjiv Jeter 02/13/2012 empty brett Encarnacion M.D. Loratadine 03/26/2009 - Hx Tablets 10mg 30tabs 1 po qd for 477.0 Sanjiv Jeter 12/21/2011 allergies Riccardo Encarnacion Campral 01/09/2009 - Hx Tablets DR 333mg 180tabs 2 tid 303.90 Sanjiv Jeter 06/23/2009 Riccardo Encarnacion Amoxil 12/22/2008 - Hx Capsules 250mg 30caps 1 po tid 382.00 Sanjiv Jeter 01/01/2009 until lori Encarnacion M.D. Work Note 11/05/2008 - Hx please 008.69 Inocencio, 11/08/2008 excuse from Rama SOLIS work 11/05 and 11/06 due to medical illness. Advair Diskus 08/20/2008 - Hx Misc 500/50 1units 1 puff bid; 493.12 Silcojohn, 09/19/2008 Warren Bardales, After Use Riccardo Zithromax Z-Byron 08/20/2008 - Hx Tablets 250mg 1Pack 2 PO On Day 493.12 Zachary, 08/25/2008 1, 1 PO On Jeffy, Days 2-5 M.DMeghana 466.0 Risperdal 06/06/2008 - Hx Tablets 1mg 60tabs 1 bid 296.89 Member, 12/21/2011 MD Erick [facility] Bupropion HCL 06/06/2008 - Hx Tablets ER 150mg 60tabs 1 bid 296.89 Sanjiv Jordan. ER 12/21/2011 12HR Riccardo Encarnacion Timothy 07/06/2007 - Hx 842.00 Silcoff, Return To Work 07/09/2007 Jeffy, Without Riccardo Restrictions Wrist 06/26/2007 - Hx 1units use as 842.00 Silcoff, Immobilizer 06/12/2008 galdino Bardales (Left) Riccardo Timothy May Work 06/26/2007 - Hx must use 842.00 Silcoff, With The 07/06/2007 wrist Jeffy, Following dorothy Gu Restrictions on left arm at ALL times, no lifting >5#, pushing >10# or pulling w/ left hand PT For Left 06/26/2007 - Hx please 842.00 Silcoff, Wrist 06/12/2008 evaluate and Jeffy Tendonitis Riccardo gill modalities prn, instruct in hep Chantix Starter 04/06/2007 - Hx Misc 1units take as 305.1 Sanjiv A. Kit 06/12/2008 galdino Encarnacion M.D. Zithromax Z-Byron 01/17/2007 - Hx Tablets 250mg 1Pack use as 466.0 Inocencio 01/22/2007 directed Rama SOLIS Phenergan W/ 01/17/2007 - Hx Syrup 6.25mg 8Oz 2 TSP qid prn 466.0 Opal Painter 02/05/2007 ;10mg/ Cough Rama SOLIS 5ML Work Note 10/20/2006 - Hx [facility] And Treated Here. Suggest Next 48 Hours Off. Robitussin A-c 10/20/2006 - Hx Syrup 100mg; 120ml 5 ml po q4h klepasubhash 01/17/2007 10mg/5 cough ML Amoxicillin 09/27/2006 - Hx Tablets 500mg 30tabs 1 po tid for 381.00 Silcoff, 10/07/2006 ear infection Riccardo Bardales Air Cast For 04/06/2005 - Hx 1units use as 845.00 Silcoff, Right Ankle 05/06/2005 galdino Bardales M.D. Advair Diskus 10/11/2004 - Hx Inhaler 250mcg 1units 1 puff bid 493.12 Silcoff, 09/27/2006 ;50mcg Riccardo Bardales Zithromax Z-Byrno 10/11/2004 - Hx Tablets 250mg 1Pack 2 po on day 493.12 Silcoff, 10/16/2004 1, 1 po on Jeffy, days 2-5 MNawaf Cefuroxime 05/27/2004 - Hx Tablets 500mg 14tabs 1 po bid 381.02 klepack Axetil 09/13/2004 Dynacin 10/21/2003 - Hx Capsules 75mg 60caps take 1 tablet Breiman, 09/13/2004 orally twice Kanika, a day for N.P. 1 month Proventil HFA 10/21/2003 - Hx Aerosol 90mcg/ 1units 2 puffs po 493.12 Sanjiv A. 12/21/2011 Dose q4h prn for Klepack, cough, M.D. wheezing, shortness of breath 493.10 Amoxil [...] CPT Code Status Date Vaccine Lot # 38980 Given 10/30/2014 Influenza Virus Vaccine, Quadrivalent, Split, [id number] Preservative Free 07790 Given 06/29/2012 Pneumococcal Immunization [id number] 35275 Given 11/05/2010 Flu, Split Virus 3Yrs [id number] 86586 Given 08/20/2008 Flu, Split Virus 3Yrs [id number] 31119 Given 02/06/2007 Adacel or Boostrix, TDaP [id number] Refused 11/03/2016 Influenza Virus Vaccine, Quadrivalent, Split, [...] Result H/L Range Note HSV/VZV Derm 04/04/2017 [facility] hs/VZ Source WOUND ON FOREHEA N 1 PCR [phone] <SEE NOTE> HSV 1 PCR Negative N Negative HSV 2 PCR Negative N Negative 2 Varicella Zoster Source WOUND ON FOREHEA <SEE NOTE> N 3 Varicella Zoster Result Negative N Negative 4 Laboratory test 05/24/2014 [facility] Surgical RUN DATE: 5 finding [phone] Pathology <SEE NOTE> Laboratory test 02/14/2014 [facility] Rapid Influenza (SEE NOTE) 6 finding [phone] A B Antigen Xray 01/23/2014 [facility] X-Ray, Chest, 2 normal chest Views Throat-Beta Strept 06/09/2013 [facility] Throat Beta (SEE NOTE) 7 [phone] Strep Culture Urine Micro 06/29/2012 In House Ua WBC - Inhouse Ua RBC - Ua Casts - Ua Epi - Ua Other packed sediment Ua Glucose - Ua Bilirubin 1+ Ua Ketones mod Ua Specific [place] 1.010 Ua Blood - Ua PH 8.0 Ua Protein tr Ua Urobilinogen - Ua Nitrite - Ua Leukocytes - Surgical 04/06/2012 [facility] Surgical <SEE 8 Pathology [phone] Pathology NOTE> Laboratory test 02/21/2012 [facility] <SEE 9 finding [phone] Pathology NOTE> Laboratory test 02/14/2012 [facility] TSH 0.81 MIU/ML 0.34- finding [phone] 5.60 CBC Auto Diff 02/14/2012 [facility] White Blood 7.9 CUMM 4.8-4 [phone] Count 0.8 Red Cell Count 5.31 CUMM [...] Basophils 0 0-0.2 Comp Metabolic Panel 02/14/2012 [facility] Sodium 138 mmol/L 135- 145 [phone] Potassium 4.2 mmol/L 3.5-5.0 Chloride 104 mmol/L [...] Bilirubin - Ua Ketones - Ua Specific [place] 1.020 Ua Blood - Ua PH 5.0 Ua Protein - Ua Urobilinogen - Ua Nitrite - Ua Leukocytes - Surgical 12/22/2009 [facility] Surgical 13, 14 Pathology [phone] Pathology <SEE NOTE> Laboratory 12/22/2009 [facility] Gastrin 38 pg/mL () 15 test finding [phone] Laboratory 12/22/2009 [facility] Clotest N^NEGATIVE^ALVINA test finding [phone] Liver Function 11/11/2009 [facility] Total Protein 7.0 GM/DL 6.2- Panel [phone] 8.1 Albumin 4.1 GM/DL 3.6-5.4 Globulin 2.9 GM/DL 2-4 Albumin/Globulin Ratio 1.4 1-3 Bilirubin Total 0.7 mg/dL 0.4-1.5 16 Bilirubin Direct 0.1 mg/dL 0.1-0.5 Indirect Bilirubin 0.6 mg/dL 0.1-0.75 Alkaline Phosphatase 69 U/L 39-117 Alt (SGPT) 44 U/L 17-63 Ast (Sgot) 31 U/L 12-42 Laboratory test 11/11/2009 [facility] Glucose 86 mg/dL 70-100 17 finding [phone] Lipid Profile 11/11/2009 [facility] Triglyceride 332 mg/dL High 40- 200 (Trig/Chol/HDL) [phone] Cholesterol 236 mg/dL High Less Than 200 18 High Density Lipoprotein 32 mg/dL Low 40-60 19 Cholesterol/HDL Ratio 7.38 AVERAGE High 1-4.97 Low Density Lipoprotein 138 mg/dL High Less Than 100 20 CBC With Manual 11/11/2009 [facility] White Blood Count 7.0 CUMM 4.8 -10.8 Diff [phone] Red Cell Count 5.45 CUMM 4.6-6.2 Hemoglobin [...] 4.1 RBC Morphology NORMAL Laboratory test 12/11/2008 [facility] Surgical condyloma acum 21, 22 finding [phone] Pathology Ua Inhouse 11/05/2008 In House Ua Glucose - 23 Ua Bilirubin orange see note Ua Ketones - Ua Specific [place] 1.010 Ua Blood - Ua PH 7.5 Ua Protein ++ Ua Urobilinogen - Ua Nitrite - Ua Leukocytes - Throat-Beta Strep 01/18/2008 [facility] Throat-Beta Strep NGNBS 24 [phone] Culture Xray 06/26/2007 [facility] Medicine X-Ray, Wrist, Normal 25 Complete, Min. Of 3 Views L Laboratory test 10/23/2006 In House Culture Throat neg finding Rapid Screen Culture Throat neg 1 WOUND ON FOREHEAD 2 ADDITIONAL INFORMATION This test was developed using an analyte specific reagent. Its performance characteristics were determined by [facility] in a manner consistent with CLIA requirements. This test has not been cleared or approved by the U.S. Food and Drug Administration. 3 WOUND ON FOREHEAD 4 ADDITIONAL INFORMATION This test was developed and its performance characteristics determined by [facility] in a manner consistent with CLIA requirements. This test has not been cleared or approved by the U.S. Food and Drug Administration. Test Performed by: [facility] - [address] [address] 5 RUN DATE: 05/28/14 [facility] LAB LIVE PAGE 1 RUN TIME: [address] [place] [address] Specimen Inquiry Name: TIMOTHY PALOMINO : [address]: Sanjiv Encarnacion MD Acct: [id number] Unit: [id number] AGE: 28 Location: [facility] Re05/24/14 SEX: M Status: REG REF SPEC: [id number] MANI: 05/24/14-[address]: Sanjiv Encarnacion MD REQ: [id number] RECD: 05/26/14517 STATUS: SOUT _ ORDERED: LEVEL IV FINAL [...] performed at Main Lab DEPARTMENT OF PATHOLOGY, [employer] [place], [place] [address] Jose Boateng M.D. Director [facility] # [id number] RUN DATE: 02/14/14 [facility] LAB LIVE PAGE 1 RUN TIME: [address] [employer] [place], [place] [address] Specimen Inquiry Name: TIMOTHY PALOMINO : [address]: Paco Castelan DO Acct: [id number] Unit: [id number] AGE: 28 Location: [facility] Re02/14/14 SEX: M Status: REG REF SPEC: [id number] MANI: 02/14/14-[address]: Paco Castelan DO REQ: [id number] RECD: 02/14/14929 STATUS: COMP _ SOURCE: RO SPDESC: ORDERED: Rapid Flu A B QUERIES: Medent Number [id number] Procedure Result Verified Site Rapid Influenza A B Antigen Final 02/14/14- 2117 ML Organism 1 Negative Influenza A Organism 2 Negative Influenza B Antigen testing by enzyme immunoassay. Cell culture testing can be performed to confirm negative test results and to assist in detecting other viruses that can produce similar clinical symptoms. Please notify Microbiology Lab if further testing is desired. END OF REPORT * ML=Testing performed at Main Lab DEPARTMENT OF PATHOLOGY, [facility] [employer] [place], [place] [address] Jose Boateng M.D. Director [facility] Permit #[id number] RUN DATE: 06/12/13 [facility] LAB LIVE PAGE 1 RUN TIME: 3537 [facility] [employer] [place], [place] [address] Specimen Inquiry Name: TIMOTHY PALOMINO : [address]: Ok Pritchett MD Acct: [id number] Unit: [id number] AGE: 27 Location: [facility] Re06/09/13 SEX: M Status: DEP ER SPEC: [id number] MANI: 06/09/13 [facility] DR: Ok Pritchett MD REQ: [id number] RECD: 06/10/13 STATUS: MARY ANNE DR: [facility] Sanjiv Encarnacion MD _ SOURCE: THROAT SPDESC: ORDERED: Throat Beta Str Procedure Result Verified Site Throat Beta Strep Culture Final 06/12/13- 0856 ML Negative For Group A Beta Streptococcus END OF REPORT * ML=Testing performed at Main Lab DEPARTMENT OF PATHOLOGY, [address] [place] [address] Jose Boateng M.D. Director [facility] Permit #[id number] --- RUN DATE: 04/10/12 [facility] NMI LIVE PAGE 1 RUN TIME: 1405 Specimen Inquiry RUN USER: INTERFACE -- Name: TIMOTHY PALOMINO#: [id number] Status: REG REF Re04/06/12 Age/Sex: 26/M Unit#: [id number] Location: MANFRED Espino. : [birth year] -- Specimen: [id number] SOUT Spec Date:04/06/12 Dr: Wilfred Velez MD Spec Type: SURGICAL [...] Signed Electronically by: JOSE BOATENG MD 04/10/12 1403 -- -- DEPARTMENT OF PATHOLOGY, [address] [place] [address] [facility] Permit #[id number] Riccardo Otero M.D. Automobile Tester Dir carroll -- 9 --- RUN DATE: 02/23/12 [facility] NMI LIVE PAGE 1 RUN TIME: 142 Specimen Inquiry RUN USER: INTERFACE -- Name: TIMOTHY PALOMINO Status: REG REF Re02/21/12 Age/Sex: 26/M Unit#: [id number] Location: [facility]. : [birth year] -- Specimen: [id number] SOUT Spec Date:02/21/[address]: Jeffy schroeder MD Spec Type: SURGICAL [...] Signed Electronically by: JOSE BOATENG MD 02/23/12 1830 -- -- DEPARTMENT OF PATHOLOGY, [address] [place] [address] [facility] Permit #[id number] Jose Boateng M.D. Director Giovanni Simmons M.D. Automobile Tester Dir carroll -- 10 Anion gap measurement may be of limited value in the presence of any alkalosis, especially in a combined acid base disorder. . 11 A metabolite of Naproxen, O-desmethylnaproxen, has been shown to interfere with the Jendrassik-Manly method for measuring total bilirubin. Samples from [...] severe atypia 14 ---- RUN DATE: 12/31/09 [facility] NMI LIVE PAGE 1 RUN TIME: 1014 Specimen Inquiry RUN USER: INTERFACE -- Name: PALOMINOTIMOTHY Status: REG REF Re12/22/09 Age/Sex: 24/M Unit#: [id number] Location: [facility]. : [birth year] -- Specimen: [id number] SOUT Spec Date: 12/22/[address]: Wilfred Velez MD Spec Type: SURGICAL P Received: 12/22/09-1228 Copies to: Sanjiv zuniga MD SPECIMEN BIOPSY [...] 12/31/09 1014 -- -- DEPARTMENT OF PATHOLOGY, [address] [place] [address] [facility] Permit #[id number] Jose Boateng M.D. Director Giovanni Simmons M.D. Automobile Tester Dir carroll -- 15 -- REFERENCE VALUE -- <100 Reference ranges valid for >=8 hour fast. Test Performed by: [facility] Dpt of Lab Med and Pathology [address] [place] [address] Block Mechanic: Kurtis Schafer III, M.D. 16 A metabolite of Naproxen, O-desmethylnaproxen, has been shown to interfere with the Rocky-Manly method for measuring total bilirubin. Samples from patients who have taken Naproxen have shown spurious elevation in total bilirubin levels. 17 Note change in reference range as of 07/10/08. The change was based on recommendations from the [place] [employer]. 18 CHOLESTEROL INTERPRETATION: Desirable: Less [...] High Risk: LDL Greater than 189 MG/DL 12/09/08 pt calls and is very anxious for results, given. SL 22 ---- RUN DATE: 12/15/08 [facility] NMI LIVE PAGE 1 RUN TIME: 1517 Specimen Inquiry RUN USER: INTERFACE -- Name: TIMOTHY PALOMINO Acctank#: [id number] Status: REG REF Re12/11/08 Age/Sex: 23/M Unit#: [id number] Location[facility] : [birth year] -- Specimen: [id number] SOUT Spec Date: 12/11/[address]: Sanjiv [...] 12/15/08 1517 -- -- DEPARTMENT OF PATHOLOGY, [address] [place] [address] [facility] Permit #[id number] Jose Boateng M.D. Director Giovanni Simmons M.D. Automobile Tester Dir carroll -- 23 orange result not part of the strip test indications, but clearly a change 24 NEGATIVE FOR GROUP A STREP 25 No fractures or dislocations in left wrist Procedures Date Code Description Status 01/02/2017 46388 Destruction Of Skin Lesions Up To 14 Flat Warts/Molluscum Completed Contag 09/26/2016 36337 Destruction Of Skin Lesions Up To 14 Flat Warts/Molluscum Completed Contag 07/31/2014 36260 Omt 7-8 Body Regions Completed 05/24/2014 25507 Shave Skin Lesion 1.1-2CM Trunk/Arm/Leg Completed 05/19/2014 94027 Destruction Of Skin Lesions Up To 14 Flat Warts/Molluscum Completed Contag 01/23/2014 27378 Electrocardiogram Complete Completed 01/23/2014 86919 X-Ray Chest Two Views Completed 12/26/2013 79602 Omt 3 To 4 Body Regions Involved Completed 07/26/2013 17860 Destruction Of Skin Lesions Up To 14 Flat Warts/Molluscum Completed Contag 02/21/2012 94795 Shave Skin Lesion .6-1CM Trunk/Arm/Leg Completed 12/04/2009 09202 Destruction Of Skin Lesions Up To 14 Flat Warts/Molluscum Completed Contag 03/26/2009 24674 Tympanometry Completed 01/09/2009 76314 Tympanometry Completed 01/09/2009 24371 Destruction Of Skin Lesions Up To 14 Flat Warts/Molluscum Completed Contag 12/11/2008 84259 Destruction Of Skin Lesions Up To 14 Flat Warts/Molluscum Completed Contag 12/11/2008 74213 Biopsy Skin Lesion Single Completed 06/26/2007 75237 X-Ray Wrist Three Views Completed 10/11/2004 17500 Bronchospasm Evaluation Pre & Post Completed 05/27/2004 60950 Tympanometry Completed 10/21/2003 06306 Bronchospasm Evaluation Pre & Post Completed Encounters Type Date Location Provider Dx Diagnosis Office Visit 08/17/2017 Main Office Laura Candelaria, H72.90 Unsp perforation of 10:20a P.A. tympanic membrane, unspecified ear H81.42 Vertigo of central origin, left ear Office Visit 05/01/2017 3:30p Main Office Paco Castelan, F33.1 Major depressive D.O. disorder, recurrent, moderate F60.3 Borderline personality disorder Z00.00 Encntr for general adult medical exam w/o abnormal findings Office Visit 01/02/2017 1:15p Main Office Paco Castelan D.O. B07.8 Other viral warts J45.30 Mild persistent asthma, uncomplicated F60.3 Borderline personality disorder Office Visit 11/03/2016 2:15p Main Office Sanjiv Jeter F60.3 Charley Encarnacion M.D. personality disorder F33.1 Major depressive disorder, recurrent, moderate Office Visit 09/26/2016 2:45p Main Office Flip S06.0x0D Concussion without Laine Antonio. loss of consciousness, subs encntr E78.2 Mixed hyperlipidemia R51 Headache R63.4 Abnormal weight loss B07.8 Other viral warts Z13.850 Encounter for screening for traumatic brain injury S06.0x0A Concussion without loss of consciousness, initial encounter Office Visit 09/13/2016 1:15p Main Office Flip, S06.0x0A Concussion without Paco, D.OMeghana loss of consciousness, initial encounter R51 Headache [...] Office Visit 09/18/2013 2:00p Main Office Laura Teagan, 692.6 Dermatitis Contact P.A. Due To Plants (Except Food) Office Visit 08/31/2013 10:15a Main Office FlipHeydion, 305.1 Tobacco Use D.O. Disorder 490 Bronchitis Acute Or Chronic Not Spec 461.0 Sinusitis Acute Maxillary Office Visit 07/26/2013 4:59p Main Office Sanjiv Jeter 078.19 Viral Warts Spec Riccardo Encarnacion Other Office Visit 11/05/2012 1:10p Main Office Sanjiv Jeter 724.2 Lumbago Riccardo Encarnacion Office Visit 10/12/2012 11:15a Main Office Laura Candelaria, 381.29 Otitis Media P.A. Chronic Media Other [...] (Except Thigh) & Ankle W/O Complication V06.1 Dicpyrkvvn-Kfgiaqq-Lxurztoa Combined (DTaP) V07.2 Prophylactic Immunotherapy Office Visit [...] Site Office Visit 10/30/2004 10:30a Main Office Zachary 110.3 Dermatophytosis Groin Riccardo Bardales & Perianal Area Office Visit 10/11/2004 1:15p Main Office Zachary 493.12 Intrinsic Asthma With Riccardo Bardales Acute Exacerbation 305.1 Tobacco Use Disorder Office Visit 09/13/2004 3:15p Main Office Sanjiv Encarnacion, V20.2 Routine Or M.D. Child Health Check 314.00 Attention Deficit Disorder W/O Mention Of Hyperactivity 296.89 Bipolar Disorder NEC V81.6 Screening For Genitourinary Conditions Other & Unspec Office Visit 05/27/2004 11:00a Main Office fabricio 381.02 Otitis Media Mucoid Acute Office Visit 10/21/2003 3:20p Main Office Marine, 314.00 Attention Deficit Kanika, N.P. Disorder W/O Mention Of Hyperactivity 706.1 Acne Other 493.90 Asthma Unspec W/O Status Asthmaticus Office Visit 09/18/2003 3:40p Main Office Marine, 493.00 Asthma Extrinsic Kanika, N.P. Unspecified 465.9 URI Upper Respiratory Infections Acute Unspec Sites Office Visit 09/04/2003 3:00p Main Office Marine, 381.00 Otitis Media Kanika, N.P. Nonsuppurative Acute Unspec 493.12 Intrinsic Asthma With Acute Exacerbation Plan of Treatment 08/17/2017 - Laura Candelaria, P.A.H72.90 Unspecified perforation of tympanic membrane, unspecified earNew Medication:Cefdinir 300 mg - 1 cap bid x 10 days for ear infectionPrednisone 20 mg - 1 per morning x 5 days for sevre ear painFollow up:ibuprofen 800 mg 3 times a day, toggle with OTC; tylenol ( acetaminophen) max 500 mg, 3-4 times a dayH81.42 Vertigo of central origin, left earNew Medication:Meclizine HCL 25 mg - 1 tid-qid as needed for room spinning dizziness
--- OUTSIDE RECORDS SUMMARY | 2018-10-27 10:14 | XMS REPORT | Continuity of Care Document ---
:1985 External Reference #:[id number] Author Name Paco Castelan D.O. Address [address] [place] [address] Care Team Providers Name Role Phone HCP given Primary Care Physician Unavailable Payers Type Date Identification Numbers Payment Provider Subscriber Effective: Policy Number: [id number] [employer] (MARISA Palomino 2009 MGD) Group Name: Seq#05 [address] [address] PayID: [id number] [place] [address] Policy Number: [id number] [facility] Timothy Palomino PayID: [id number] [address] [place] [address] Advance Directives Description No Information Available Problems [...] Castelan D.O. Active Onset: 02/14/2014 Acute bronchitis aPco Castelan D.O. Active Onset: 02/14/2014 Lipoprotein deficiency disorder Paco Castelan D.O. Active Onset: 09/26/2016 Mixed hyperlipidemia Paco Castelan D.O. Active Onset: 10/08/2018 Uncomplicated moderate persistent Paco Castelan D.O. Active asthma Onset: 10/08/2018 Allergic rhinitis Paco Castelan D.O. Active Onset: 10/08/2018 Anxiety state Paco Castelan D.O. Active Onset: 10/08/2018 Moderate recurrent major depression Paco Castelan D.O. 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 anxiety Loratadine 10/08 Active Tablets 10mg 90tab take 1 tablet J30.9 , s daily at Paco, bedtime for D.O. [...] Hx Aerosol 40mcg/Act 26.1g 2 puffs twice cha, m a day rinse Paco, - mouth after D.O. 01/09 use Arnuity 11/03 Hx Aerosol 100mcg/Ac 30uni Inhale 2 t ts puffs by Paco, - mouth daily D.O. 11/07 for asthma /2016 Cefdinir 08/17 Hx Capsules 300mg 20cap 1 cap bid x H72.90 Silcoff, s 10 days for Jeffy, - ear infection M.D. 08/26 Prednisone 08/17 Hx Tablets 20mg 5tabs 1 per morning H72.90 Silcoff, x 5 days for Jeffy - sevre ear M.D. 10/07 pain 2018 [...] Hx Aerosol 90mcg/Act 240pu 2 puffs 466.0 [facility] ffss 1-2x/day; Paco, - Every day for D.O. 11/03 control asthma to not wake up coughing Clonazepam 09/25 Hx Tablets 1mg 1 1/2 tabs po prtamia Suarez, - [facility] 10/07 Amitriptyline 09/13 Hx Tablets 10mg 30tab 1 by mouth G47.00 [facility] every night Paco, - at bedtime D.O. 09/13 Fluticasone 07/31 Hx Suspension 50mcg/Act 3unit 2 sprays into 477.0 [facility], Propionate s each nostril Paco, - every day for D.O. 09/25 nasal congestion. hannah allergies. rinse mouth post 477.0 Ventolin HFA 07/31/2014 - Hx Aerosol 108(90Base) 2units inhale 2 477.0 [facility], 09/25/2016 mcg/Act puffs by Paco, D.O. mouth every 4 hours as needed for cough or wheezing Tramadol HCL 07/31/2014 - Hx Tablets 50mg 40tabs 1-2 by 729.1 [facility], 08/30/2014 mouth every Paco, D.O. 6 hours as needed for pain 723.1 Zyrtec Allergy 07/31/2014 - Hx Capsules 10mg 30caps 1-2 cap [facility] 477.0 [facility] 09[facility]2016 mouth every Paco, day D.O. Lansoprazole 07/31/2014 - Hx Capsules DR 30mg 30caps 1 po daily as 530.81 [facility], 08/30/2014 needed Paco, D.O. Azithromycin 02/14/2014 - Hx Tablets 500mg 6tabs take 1 tablet 461.0 [facility], 04/29/2014 by mouth daily Paco, for 3 days for D.O. infection Pulmicort 01/23/2014 - Hx Aerosol 90mcg/ 240puffs 2 puffs 466.0 Alfred Castelanhaler 01/02/2017 Act s 1-2x/day; to Paco, be used when D.O. flovent not available Amoxicillin/Cla 01/23/2014 - Hx Tablets 875-12 14tabs 1 by mouth 466.0 byran Castelananate 01/30/2014 5mg twice a day Paco, Potassium D.O. Amoxicillin/Cla 12/26/2013 - Hx Tablets 875-12 20tabs 1 by mouth 382.02 bryan Castelananate 01/21/2014 5mg twice a day Paco, Potassium D.O. Triamcinolone 09/18/2013 - Hx Cream 0.5% 80gm apply 2-3 692.6 Silcoff, Acetonide 10/02/2013 x/day up to 2 rehan Bardales M.D. Biaxin 08/31/2013 - Hx Tablets 500mg 20tabs 1 cap by mouth 490 [facility], 09/10/2013 twice a day Paco, D.O. Ventolin HFA 08/31/2013 - Hx Aerosol 108(90 1units inhale 2 puffs 477.0 [facility], 07/31/2014 Base) by mouth every Paco, mcg/Ac 4 hours as D.O. t needed for cough or wheezing Chantix 08/31/2013 - Hx Tablets 0.5mg 1tabs Take as 305.1 [facility], Starting Month 12/26/2013 X 11 & directed Paco, Byron 1 mg X D.O. 42 Flonase 08/31/2013 - Hx Suspension 50mcg/ 3units inhale 2 477.0 [facility] , 07/31/2014 Act sprays into Paco, nostril daily D.O. in each nostril for nose inflammation 477.0 Tramadol HCL 11/05/2012 - Hx Tablets 50mg 40tabs 1 po q 6 724.2 Sanjiv Jeter 08/31/2013 hrs prn Klenadia, pain M.DMeghana Flexeril 11/05/2012 - Hx Tablets 10mg 30tabs 1 po tid 724.2 Sanjiv Jeter 08/31/2013 prn for Klenadia muscle M.DMeghana relaxation/ spasms Sulfamethoxazole 10/12/2012 - Hx Tablets [...] 50mcg/ 1units 2 sprays to 381.81 Sanjiv Jeter 10/21/2009 Act each apolonia Encarnacion M.D. prn for nasal allergies Clarithromycin 06/23/2009 - Hx 250mg 20units 1 po bid 466.0 Sanjiv Jeter 07/03/2009 until gone Riccardo Encarnacion use this instead of the brand name Concerta 06/12/2009 - Hx Tablets ER 18mg 30tabs 1 po qam Member, 12/21/2011 MD Erick [facility] Omeprazole 40 MG 03/26/2009 - Hx Capsules [...] Hx please 008.69 Inocencio, 11/08/2008 excuse from aRma SOLIS work 11/05 and 11/06 due to medical illness. Advair Diskus 08/20/2008 - Hx Misc 500/50 1units 1 puff bid; 493.12 Silcoff, 09/19/2008 Warren Bardales, After Use Riccardo Zithromax Z-Byron 08/20/2008 - Hx Tablets 250mg 1Pack 2 PO On Day 493.12 Silcoff, 08/25/2008 1, 1 PO On Jeffy, Days 2-5 M.DMeghana 466.0 Risperdal 06/06/2008 - Hx Tablets 1mg 60tabs 1 bid 296.89 Member, 12/21/2011 MD Erick [facility] Bupropion HCL 06/06/2008 - Hx Tablets ER [...] in hep Chantix Starter 04/06/2007 - Hx [facility] 1units take as 305.1 Sanjiv Jeter Kit 06/12/2008 galdino Encarnacion M.D. Zithromax Z-Byron 01/17/2007 - Hx Tablets 250mg 1Pack use as 466.0 [place] , 01/22/2007 directed Rama SOLIS Phenergan W/ 01/17/2007 - Hx Syrup 6.25mg 8Oz 2 TSP qid prn 466.0 Inocencio Codeine 02/05/2007 ;10mg/ Cough Rama SOLIS 5ML Work Note 10/20/2006 - Hx Patient Seen 787.01 [facility] 11/27/2006 And Treated Here. Suggest Next 48 Hours Off. Robitussin A-c 10/20/2006 - Hx Syrup 100mg; 120ml 5 ml po q4h klepack 01/17/2007 10mg/5 cough ML Amoxicillin 09/27/2006 - [...] 1, 1 po on Jeffy, days 2-5 M.D. Cefuroxime 05/27/2004 - Hx Tablets 500mg 14tabs 1 po bid 381.02 klepack Axetil 09/13/2004 Dynacin 10/21/2003 - Hx Capsules 75mg 60caps take 1 tablet Breiman, 09/13/2004 orally twice Kanika, a day for N.P. 1 month Proventil HFA 10/21/2003 - Hx Aerosol 90mcg/ 1units 2 puffs po 493.12 Sanjiv A. 12/21/2011 Dose q4h prn for terrance Encarnacion MMeghanaD. wheezing, shortness of breath 493.10 Amoxil 09/04/2003 [...] CPT Code Status Date Vaccine Lot # [id number] Given 10/30/2014 Influenza Virus Vaccine, Quadrivalent, Split, [id number] Preservative Free 68216 Given 06/29/2012 Pneumococcal Immunization [id number] 54914 Given 11/05/2010 Flu, Split Virus 3Yrs [id number] 75007 Given 08/20/2008 Flu, Split Virus 3Yrs [id number] 75477 Given 02/06/2007 Adacel or Boostrix, TDaP [id number] Refused 11/03/2016 Influenza Virus Vaccine, Quadrivalent, Split, [...] Result H/L Range Note HSV/VZV Derm 04/04/2017 [facility] hs/VZ Source WOUND ON FOREHEA N 1 PCR [phone] <SEE NOTE> HSV 1 PCR Negative N Negative HSV 2 PCR Negative N Negative 2 Varicella Zoster Source WOUND ON FOREHEA <SEE NOTE> N 3 Varicella Zoster Result Negative N Negative 4 Laboratory test 05/24/2014 [facility] Surgical RUN DATE: 5 finding [phone] Pathology <SEE NOTE> Laboratory test 02/14/2014 [facility] Rapid Influenza (SEE NOTE) 6 finding [phone] A B Antigen Xray 01/23/2014 [facility] X-Ray, Chest, 2 normal chest Views Throat-Beta Strept 06/09/2013 [facility] Throat Beta (SEE NOTE) 7 [phone] Strep Culture Urine Micro 06/29/2012 In House Ua WBC - Inhouse Ua RBC - Ua Casts - Ua Epi - Ua Other packed sediment Ua Glucose - Ua Bilirubin 1+ Ua Ketones mod Ua Specific [place] 1.010 Ua Blood - Ua PH 8.0 Ua Protein tr Ua Urobilinogen - Ua Nitrite - Ua Leukocytes - Surgical 04/06/2012 [facility] Surgical <SEE 8 Pathology [phone] Pathology NOTE> Laboratory test 02/21/2012 [facility] <SEE 9 finding [phone] Pathology NOTE> Laboratory test 02/14/2012 [facility] TSH 0.81 MIU/ML 0.34- finding [phone] 5.60 CBC Auto Diff 02/14/2012 [facility] White Blood 7.9 CUMM 4.8-3 [phone] Count 0.8 Red Cell Count 5.31 CUMM [...] Basophils 0 0-0.2 Comp Metabolic Panel 02/14/2012 [facility] Sodium 138 mmol/L 135- 145 [phone] Potassium 4.2 mmol/L 3.5-5.0 Chloride 104 mmol/L [...] Bilirubin - Ua Ketones - Ua Specific [place] 1.020 Ua Blood - Ua PH 5.0 Ua Protein - Ua Urobilinogen - Ua Nitrite - Ua Leukocytes - Surgical 12/22/2009 [facility] Surgical 13, 14 Pathology [phone] Pathology <SEE NOTE> Laboratory 12/22/2009 [facility] Gastrin 38 pg/mL () 15 test finding [phone] Laboratory 12/22/2009 [facility] Clotest N^NEGATIVE^ALVINA test finding [phone] Liver Function 11/11/2009 [facility] Total Protein 7.0 GM/DL 6.2- Panel [phone] 8.1 Albumin 4.1 GM/DL 3.6-5.4 Globulin 2.9 GM/DL 2-4 Albumin/Globulin Ratio 1.4 1-3 Bilirubin Total 0.7 mg/dL 0.4-1.5 16 Bilirubin Direct 0.1 mg/dL 0.1-0.5 Indirect Bilirubin 0.6 mg/dL 0.1-0.75 Alkaline Phosphatase 69 U/L 39-117 Alt (SGPT) 44 U/L 17-63 Ast (Sgot) 31 U/L 12-42 Laboratory test 11/11/2009 [facility] Glucose 86 mg/dL 70-100 17 finding [phone] Lipid Profile 11/11/2009 [facility] Triglyceride 332 mg/dL High 40- 200 (Trig/Chol/HDL) [phone] Cholesterol 236 mg/dL High Less Than 200 18 High Density Lipoprotein 32 mg/dL Low 40-60 19 Cholesterol/HDL Ratio 7.38 AVERAGE High 1-4.97 Low Density Lipoprotein 138 mg/dL High Less Than 100 20 CBC With Manual 11/11/2009 [facility] White Blood Count 7.0 CUMM 4.8 -10.8 Diff [phone] Red Cell Count 5.45 CUMM 4.6-6.2 Hemoglobin [...] 4.1 RBC Morphology NORMAL Laboratory test 12/11/2008 [facility] Surgical condyloma acum 21, 22 finding [phone] Pathology Ua Inhouse 11/05/2008 In House Ua Glucose - 23 Ua Bilirubin orange see note Ua Ketones - Ua Specific [place] 1.010 Ua Blood - Ua PH 7.5 Ua Protein ++ Ua Urobilinogen - Ua Nitrite - Ua Leukocytes - Throat-Beta Strep 01/18/2008 [facility] Throat-Beta Strep NBS 24 [phone] Culture Xray 06/26/2007 [facility] X-Ray, Wrist, Normal 25 Complete, Min. Of 3 Views L Laboratory test 10/23/2006 In House Culture Throat neg finding Rapid Screen Culture Throat neg 1 WOUND ON FOREHEAD 2 ADDITIONAL INFORMATION This test was developed using an analyte specific reagent. Its performance characteristics were determined by [facility] in a manner consistent with CLIA requirements. This test has not been cleared or approved by the U.S. Food and Drug Administration. 3 WOUND ON FOREHEAD 4 ADDITIONAL INFORMATION This test was developed and its performance characteristics determined by [facility] in a manner consistent with CLIA requirements. This test has not been cleared or approved by the U.S. Food and Drug Administration. Test Performed by: [facility] - [address] [address] 5 RUN DATE: 05/28/14 [facility] LAB LIVE PAGE 1 RUN TIME: [address] [place] [address] Specimen Inquiry Name: TIMOTHY PALOMINO : [address]: Sanjiv Encarnacion MD Acct: [id number] Unit: [id number] AGE: 28 Location: [facility] Re05/24/14 SEX: M Status: REG REF SPEC: [id number] MANI: 05/24/14 [facility] DR: Sanjiv Encarnacion MD REQ: [id number] RECD: 05/26/14 STATUS: SOUT _ ORDERED: LEVEL [...] performed at Main Lab DEPARTMENT OF PATHOLOGY, [facility] [employer] [place], [place] [address] Jose Boateng M.D. Director JOEY # [id number] RUN DATE: 02/14/14 [facility] LAB LIVE PAGE 1 RUN TIME: 2116 [facility] [employer] [place], [place] [address] Specimen Inquiry Name: TIMOTHY PALOMINO : [address]: Paco Castelan DO Acct: [id number] Unit: [id number] AGE: 28 Location: [facility] Re02/14/14 SEX: M Status: REG REF SPEC: [id number] MANI: 02/14/14-[address]: Paco Castelan DO REQ: [id number] RECD: 02/14/14 STATUS: COMP _ SOURCE: RO AQUINOESC: ORDERED: Cindy Ward QUERIES: Medent Number [id number] Procedure Result Verified Site Rapid Influenza A [...] performed at Main Lab DEPARTMENT OF PATHOLOGY, [facility] [employer] [place], [place] [address] Jose Boateng M.D. Director [facility] Permit #[id number] RUN DATE: 06/12/13 [facility] LAB LIVE PAGE 1 RUN TIME: 0857 [facility] [employer] [place], [place] [address] Specimen Inquiry Name: TIMOTHY PALOMINO : [address]: Ok Pritchett MD Acct: [id number] Unit: [id number] AGE: 27 Location: [facility] Re06/09/13 SEX: M Status: DEP ER SPEC: [id number] MANI: 06/09/13-1957 [facility] DR: Ok Pritchett MD REQ: [id number] RECD: 06/10/13 STATUS: MARY ANNE DR: DARIEN Encarnacion MD _ SOURCE: THROAT SPDESC: ORDERED: Throat Beta Str Procedure Result Verified Site Throat Beta Strep Culture Final 06/12/13- 0856 ML Negative For Group A Beta Streptococcus END OF REPORT * ML=Testing performed at Main Lab DEPARTMENT OF PATHOLOGY, [address] [place] [address] Jose Boateng M.D. Director [facility] Permit #[id number] --- RUN DATE: 04/10/12 [facility] NMI LIVE PAGE 1 RUN TIME: 1405 Specimen Inquiry RUN USER: INTERFACE -- Name: PALOMINOTIMOTHY Status: REG REF Re04/06/12 Age/Sex: 26/M Unit#: [id number] Location: [address] [place] [address]. : [birth year] -- Specimen: [id number] SOUT Spec Date:04/06/12- [facility] Dr: Wilfred Velez MD Spec Type: [...] 1403 -- -- DEPARTMENT OF PATHOLOGY, [address] [place] [address] [facility] Permit #[id number] Riccardo Otero M.D. [employer] Worker Dir carroll -- 9 --- RUN DATE: 02/23/12 [facility] NMI LIVE PAGE 1 RUN TIME: 0161 Specimen Inquiry RUN USER: INTERFACE -- Name: TIMOTHY PALOMINO Status: REG REF Re02/21/12 Age/Sex: 26/M Unit#: [id number] Location: [facility] : [birth year] -- Specimen: [id number] [facility] Spec Date:02/21/[address]: Jeffy schroeder MD [...] Signed Electronically by: JOSE BOATENG MD 02/23/12 6440 -- -- DEPARTMENT OF PATHOLOGY, [address] [place] [address] [facility] Permit #[id number] Jose Boateng M.D. Director Gioavnni Simmons M.D. [employer] Worker Dir carroll -- 10 Anion gap measurement may be of limited value in the presence of any alkalosis, especially in a combined acid base disorder. . 11 A metabolite of Naproxen, O-desmethylnaproxen, has been shown to interfere with the Jendrassik-Mertarvik method for measuring total bilirubin. Samples from [...] severe atypia 14 ---- RUN DATE: 12/31/09 [facility] NMI LIVE PAGE 1 RUN TIME: 1014 Specimen Inquiry RUN USER: INTERFACE -- Name: JEANTIMOTHY Acctank#: [id number] Status: REG REF Re12/22/09 Age/Sex: 24/M Unit#: [id number] Location: [facility] : [birth year] -- Specimen: [id number] SOUT Spec Date: 12/22/[address]: Wilfred Velez MD Spec Type: SURGICAL P Received: 12/22/09-7418 Copies to: Sanjiv zuniga MD SPECIMEN BIOPSY [...] 1014 -- -- DEPARTMENT OF PATHOLOGY, [address] [place] [address] [facility] Permit #[id number] Jose Boateng M.D. Director Giovanni Simmons M.D. [employer] Worker Dir hodges -- 15 -- REFERENCE VALUE -- <100 Reference ranges valid for >=8 hour fast. Test Performed by: [facility] Dpt of Lab Med and Pathology [address] [place] [address] [employer]: Kurtis Schafer III, M.D. 16 A metabolite of Naproxen, O-desmethylnaproxen, has been shown to interfere with the Jendrassik-Katia method for measuring total bilirubin. Samples from patients who have taken Naproxen have shown spurious elevation in total bilirubin levels. 17 Note change in reference range as of 07/10/08. The change was based on recommendations from the [place] [employer]. 18 CHOLESTEROL INTERPRETATION: Desirable: Less [...] given. WILLY 22 ---- RUN DATE: 12/15/08 [facility] NMI LIVE PAGE 1 RUN TIME: 1517 Specimen Inquiry RUN USER: INTERFACE -- Name: TIMOTHY PALOMINO Status: REG REF Re12/11/08 Age/Sex: 23/M Unit#: [id number] Location: [facility]. : [birth year] -- Specimen: [id number] SOUT Spec Date: 12/11/[address]: Sanjiv ordonez MD Spec Type: SURGICAL [...] 1517 -- -- DEPARTMENT OF PATHOLOGY, [address] [place] [address] [facility] Permit #[id number] Jose Boateng M.D. Director Giovanni Simmons M.D. [employer] Worker Dir carroll -- 23 orange result not part of the strip test indications, but clearly a change 24 NEGATIVE FOR GROUP A STREP 25 No fractures or dislocations in left wrist Procedures Date Code Description Status 01/02/2017 41361 Destruction Of Skin Lesions Up To 14 Flat Warts/Molluscum Completed Contag 09/26/2016 40759 Destruction Of Skin Lesions Up To 14 Flat Warts/Molluscum Completed Contag 07/31/2014 22518 Omt 7-8 Body Regions Completed 05/24/2014 05514 Shave Skin Lesion 1.1-2CM Trunk/Arm/Leg Completed 05/19/2014 01249 Destruction Of Skin Lesions Up To 14 Flat Warts/Molluscum Completed Contag 01/23/2014 84014 Electrocardiogram Complete Completed 01/23/2014 84996 X-Ray Chest Two Views Completed 12/26/2013 71098 Omt 3 To 4 Body Regions Involved Completed 07/26/2013 43006 Destruction Of Skin Lesions Up To 14 Flat Warts/Molluscum Completed Contag 02/21/2012 64538 Shave Skin Lesion .6-1CM Trunk/Arm/Leg Completed 12/04/2009 51484 Destruction Of Skin Lesions Up To 14 Flat Warts/Molluscum Completed Contag 03/26/2009 12449 Tympanometry Completed 01/09/2009 01081 Tympanometry Completed 01/09/2009 40725 Destruction Of Skin Lesions Up To 14 Flat Warts/Molluscum Completed Contag 12/11/2008 99619 Destruction Of Skin Lesions Up To 14 Flat Warts/Molluscum Completed Contag 12/11/2008 33493 Biopsy Skin Lesion Single Completed 06/26/2007 43790 X-Ray Wrist Three Views Completed 10/11/2004 66669 Bronchospasm Evaluation Pre & Post Completed 05/27/2004 64152 Tympanometry Completed 10/21/2003 22005 Bronchospasm Evaluation Pre & Post Completed Encounters [...] Office Visit 07/26/2013 4:59p Main Office Sanjiv Jteer 078.19 Viral Warts Spec Riccardo Encarnacion Other [...] Enteritis Office Visit 08/20/2008 9:45a Main Office Lily Sharma.12 Intrinsic Asthma Riccardo Bardales With Acute Exacerbation [...] Office Visit 06/26/2007 3:15p Main Office Jeffy Sharma 719.43 Pain Joint M.D. Forearm 842.00 Sprains & Strains Wrist & Hand Unspec Site Office Visit 04/06/2007 4:30p Main Office Sanjiv Jeter 493.90 Asthma Unspec W/O Riccardo Encarnacion Status Asthmaticus 305.1 Tobacco Use Disorder Office Visit 02/06/2007 1:30p Main Office Jeffy Sharma, 891.0 Open Wound Knee Leg M.D. (Except Thigh) & Ankle W/O Complication V06.1 Uldhaellzo-Rjtvdqr-Ydkhvcvb Combined (DTaP) V07.2 Prophylactic Immunotherapy Office Visit [...] Sites Office Visit 09/04/2003 3:00p Main Office Marine 381.00 Otitis Media Kanika, N.P. Nonsuppurative Acute Unspec 493.12 Intrinsic Asthma With Acute Exacerbation Plan of Treatment 10/08/2018 - Paco Castelan D.O.F33.1 Major depressive disorder, recurrent, wcakyraiW10.3 Borderline personality vqqlppoaB73.9 Anxiety disorder, unspecifiedNew Medication:Buspirone HCL 7.5 mg - 1 cap by mouth twice a dayKlonopin 0.5 mg - take 1 every 8 hours as needed for anxietyComments: Reference #: [id number] up:1 month recheck anxiety with GAD7 and AUK3Q33.9 Allergic rhinitis, unspecifiedNew Medication:Loratadine 10 mg - take 1 tablet daily at bedtime for ottpnovgqB22.40 Moderate persistent asthma, uncomplicatedNew Medication:Symbicort 160-4.5 mcg/Act - inhale 2 puffs by mouth twice a day gargle after useProair HFA 108(90 Base) mcg/Act - 1-2 puffs four times a day as needed
[2018-10-27 10:20] VITALS: BP 127/97
--- NOTE | 2018-10-27 10:45 | UC ---
Palpitation/Dysrhythmia HP - HPI Summary HPI Summary: 33-year-old male comes to clinic today with a chief complaint of fast heart rate and feeling anxious. Last evening he had some chest pain and noticed his heart was going fast. Chest feels tight. He has had upper respiratory tract infection symptoms for the last 45 days. The heart rate is variable he's measured it as fast as 120. He has had some nausea. The heart rate does increase with activity. No fevers or chills. His father had early onset cardiac disease. Patient reports he's had high cholesterol the past. Patient has a history of anxiety and he took some Klonopin last night which he feels did not work. He did fall asleep and woke up at about 45 minutes after midnight midnight. He's been up all night otherwise. He did have some bilateral hand tingling and narrowing of vision today. - History of Current Complaint Chief Complaint: UCGeneralIllness Stated Complaint: ANXIETY ATTACK Time Seen by Provider: 10/27/18 10:25 Pain Intensity: 0 - Allergy/Home Medications Allergies/Adverse Reactions: Allergies Allergy/AdvReac Type Severity Reaction Status Date / Time No Known Allergies Allergy Verified 10/27/18 10:20 PMH/Surg Hx/FS Hx/Imm Hx Previously Healthy: Yes Endocrine History: Dyslipidemia Psychological History: Anxiety - Surgical History Surgical History: Yes Surgery Procedure, Year, and Place: bilateral ear tube placements - x5/6 [facility] [place] - Family History Known Family History: Positive: Cardiac Disease, Hypertension, Other - skin cancer - Social History Alcohol Use: Rare Substance Use Type: None Smoking Status (MU): Heavy Every Day Tobacco Smoker Type: Cigarettes Amount Used/How Often: 1 ppd for 13 years Length of Time of Smoking/Using Tobacco: 12 years Have You Smoked in the Last Year: Yes When Did the Patient Quit Smoking/Using Tobacco: wants to quit Household Exposure Type: Cigarettes Review of Systems All Other Systems Reviewed And Are Negative: Yes Constitutional: Positive: Fever Skin: Positive: Negative Eyes: Positive: Negative ENT: Positive: Nasal Discharge Respiratory: Positive: Shortness Of Breath Cardiovascular: Positive: Palpitations, Chest Pain Gastrointestinal: Positive: Nausea Motor: Positive: Negative Neurovascular: Positive: Negative Musculoskeletal: Positive: Negative Neurological: Positive: Numbness Psychological: Positive: Anxious Is Patient Immunocompromised?: No Physical Exam Triage Information Reviewed: Yes Appearance: Well-Appearing, No Pain Distress, Well-Nourished - APPEARS ANXIOUS Vital Signs: Initial Vital Signs Temp 100.5 F 10/27/18 10:12 Pulse 100 10/27/18 10:12 Resp 20 10/27/18 10:12 BP 127/97 10/27/18 10:12 Pulse Ox 100 10/27/18 10:12 Vital Signs Reviewed: Yes Eye Exam: Normal Eyes: Positive: Conjunctiva Clear ENT: Positive: Pharynx normal, Nasal drainage, TMs normal Neck exam: Normal Neck: Positive: Supple Respiratory: Positive: Lungs clear, Normal breath sounds, No respiratory distress Cardiovascular: Positive: Tachycardia Musculoskeletal Exam: Normal Musculoskeletal: Positive: Strength Intact, ROM Intact, No Edema, Other: - NO CALF TENDERNESS Neurological Exam: Normal Neurological: Positive: Alert, Muscle Tone Normal Psychological Exam: Normal Psychological: Positive: Normal Response To Family, Age Appropriate Behavior Skin Exam: Normal Diagnostics - EKG Cardiac Rate: NL - AT 10:44 Cardiac Rhythm: Sinus: Normal - 96BPM Ectopy: None ST Segment: Non-Specific - ST ELEVATION,PROBABLE EARLY REPOL PATTERN Palpitations Course/Dx - Course Course Of Treatment: There are variety of possibilities for the patient's symptoms of palpitations tachycardia AND chest tightness to include anxiety fever pericarditis or other ischemic possibilities. His heart rate here at rest is in the 90s. His EKG is normal sinus 96 beats per minutes with ST elevation probable normal early repolarization pattern. Because of the family history of cardiac problems at an early age and his fever and his chest pain and shortness of breath I recommended evaluation emergency Department. Patient declined an ambulance who going by private car. Patient was given aspirin here in clinic. - Differential Dx/Diagnosis Provider Diagnosis: Palpitations, Chest pain, Fever Discharge - Sign-Out/Discharge Documenting (check all that apply): Patient Departure All imaging exams completed and their final reports reviewed: No Studies - Discharge Plan Condition: Stable Disposition: HOME-RECOMMEND TO ED Patient Education Materials: Chest Pain (ED), Heart Palpitations (ED), Fever in Adults (ED) Referrals: Paco Castelan DO [Primary Care Provider] - Additional Instructions: GO DIRECTLY TO THE EMERGENCY DEPARTMENT FOR FURTHER EVALUATION. - Billing Disposition and Condition Condition: STABLE Disposition: Home-Recommend to ED
[2018-10-27] MEDS ORDERED: Aspirin 81 mg CHEW TAB* 81 MG TAB.CHEW PO ONE (10:55)
== END 2018-10-27 11:15 | disposition home health service (06) ==
LOC: UCEAST 10:07
DX: R00.2 Palpitations (principal); R07.9 Chest pain, unspecified; R50.9 Fever, unspecified; F17.210 Nicotine dependence, cigarettes, uncomplicated
CPT/HCPCS: 93005; 99212; A9270-GY; G0463

== ENCOUNTER 2018-10-27 11:25 | Emergency (ER) | payer OTHER ==
--- NOTE | 2018-10-27 11:43 | ED ---
HPI Chest Pain - HPI Summary HPI Summary: A 33 y/o male presents to [facility] with a chief complaint of left sided intermittent CP since 10/26/18. He was seen by Dr. Rod at and was given aspirin. He describes his pain as a tightness like he was being "punched in the chest" and rates his pain as 3/10. He also c/o weakness, feeling tachycardic, hyperventilating, palpitations and tingling in his hands. He claims that even when his CP is under control, he still feels tingling in his hands. He states that these are similar but more severe symptoms to when he has panic attacks. He notes that he takes klonopin for his panic attacks. The patient reports a syncopal episode from 20:40 10/26/18 to 01:00 10/27/18. The patient reports a FHx of cardiac disease, HLD and cancer. He also reports a Hx of HLD and is worried that he may have cardiac disease. The patient admits to smoking cigarettes, smoking 1ppd for 13 years. - History of Current Complaint Chief Complaint: EDChestPainROMI Time Seen by Provider: 10/27/18 11:34 Hx Obtained From: Patient Onset/Duration: Started Hours Ago, Still Present Timing: Intermittent Initial Severity: Moderate Current Severity: Moderate Pain Intensity: 3 Pain Scale Used: 0-10 Numeric Chest Pain Location: Diffuse - left Chest Pain Radiates: No Character: Tightness, Other: - "like being punched in the chest Aggravating Factor(s): Nothing Alleviating Factor(s): Nothing Associated Signs and Symptoms: Positive: Tingling, Weakness, Syncope, Other: - positive: hyperventilating - Allergy/Home Medications Allergies/Adverse Reactions: Allergies Allergy/AdvReac Type Severity Reaction Status Date / Time No Known Allergies Allergy Verified 10/27/18 11:30 PMH/Surg Hx/FS Hx/Imm Hx Endocrine/Hematology History: Denies: Hx Diabetes, Hx Thyroid Disease Cardiovascular History: Reports: Hx Hypercholesterolemia, Other Cardiovascular Problems/Disorders - reports hyperlipidemia, but no meds Denies: Hx Hypertension Respiratory History: Reports: Hx Asthma Denies: Hx Chronic Obstructive Pulmonary Disease (COPD), Other Respiratory Problems/Disorders GI History: Reports: Hx Hiatal Hernia, Hx Ulcer - reports healed Musculoskeletal History: Reports: Hx Arthritis - SPINE Sensory History: Denies: Hx Contacts or Glasses, Hx Hearing Aid Opthamlomology History: Denies: Hx Contacts or Glasses Neurological History: Denies: Other Neuro Impairments/Disorders Psychiatric History: Reports: Hx Anxiety, Hx Depression - Surgical History Surgery Procedure, Year, and Place: bilateral ear tube placements - x5/6 [facility] Hx Anesthesia Reactions: No Infectious Disease History: No Infectious Disease History: Denies: Hx Clostridium Difficile, Hx Hepatitis, Hx Human Immunodeficiency Virus (HIV), Hx of Known/Suspected MRSA, Hx Shingles, Hx Tuberculosis, Hx Known/ Suspected VRE, Hx Known/Suspected VRSA, History Other Infectious Disease, Traveled Outside the [place] in Last 30 Days - Family History Known Family History: Positive: Cardiac Disease, Hypertension, Other - skin cancer, HLD - Social History Alcohol Use: Rare Substance Use Type: Reports: None Smoking Status (MU): Heavy Every Day Tobacco Smoker Type: Cigarettes Amount Used/How Often: 1 ppd for 13 years Length of Time of Smoking/Using Tobacco: 12 years Have You Smoked in the Last Year: Yes Review of Systems Positive: Palpitations, Chest Pain, Other - postive: feeling tachycardic Positive: Other - Positive: hyperventilating during panic attacks Positive: Weakness, Paresthesia, Syncope All Other Systems Reviewed And Are Negative: Yes Physical Exam - Summary Physical Exam Summary: Appearance: The patient is well-nourished in no acute distress and in no acute pain. Skin: The skin is warm and dry and skin color reflects adequate perfusion. HEENT: The head is normocephalic and atraumatic. The pupils are equal and reactive. The conjunctivae are clear and without drainage. Nares are patent and without drainage. Mouth reveals moist mucous membranes and the throat is without erythema and exudate. The external ears are intact. The ear canals are patent and without drainage. The tympanic membranes are intact. Neck: The neck is supple with full range of motion and non-tender. There are no carotid bruits. There is no neck vein distension. Respiratory: Chest is non-tender. Lungs are clear to auscultation and breath sounds are symmetrical and equal. Cardiovascular: Heart is regular rate and rhythm. There is no murmur or rub auscultated. There is no peripheral edema and pulses are symmetrical and equal. Abdomen: The abdomen is soft and non-tender. There are normal bowel sounds heard in all four quadrants and there is no organomegaly palpated. Musculoskeletal: There is no back tenderness noted. Extremities are non-tender with full range of motion. There is good capillary refill. There is no peripheral edema or calf tenderness elicited. Neurological: Patient is alert and oriented to person, place and time. The patient has symmetrical motor strength in all four extremities. Cranial nerves are grossly intact. Deep tendon reflexes are symmetrical and equal in all four extremities. Psychiatric: The patient has an appropriate affect and does not exhibit any anxiety or depression. Triage Information Reviewed: Yes Vital Signs On Initial Exam: Initial Vitals Temp Pulse Resp BP Pulse Ox 97.9 F 87 16 122/87 99 10/27/18 11:28 10/27/18 11:28 10/27/18 11:28 10/27/18 11:28 10/27/18 11:28 Vital Signs Reviewed: Yes Diagnostics - Vital Signs Vital Signs Temp Pulse Resp BP Pulse Ox 10/27/18 11:28 97.9 F 87 16 122/87 99 - Laboratory Result Diagrams: 10/27/18 11:53 10/27/18 11:53 Lab Statement: Any lab studies that have been ordered have been reviewed, and results considered in the medical decision making process. - Radiology CXR Radiology Interpretation Completed By: Radiologist Summary of Radiographic Findings: No radiographic evidence for acute cardiopulmonary abnormality on this. portable chest x-ray. ED physician has reviewed this imaging report. - EKG 12:02 Cardiac Rate: NL - 73 bpm EKG Rhythm: Sinus Rhythm Summary of EKG Findings: Normal sinus rhythm, normal ST, no ectopy, no STEMI. Re-Evaluation - Re-Evaluation First Eval Re-Evaluation Time: 15:25 Change: Improved Comment: Patient is ready for discharge. Chest Pain Course/Dx - Course Course Of Treatment: Mr. Palomino presented to the emergency department complaining of chest pain that he had had for at least all night long and this morning. He thinks that it is a panic attack but it has gone on a lot longer and is a lot worse than once he sat in the past and is concerned. During these events he's felt that his heart was pounding and going fast. He came in nontoxic in appearance with stable vital signs and he was placed on the monitor and kept on it for the duration of his stay. There were no changes seen on the monitor or on the initial EKG as compared to the one at [facility] [place]. Labs including a d-dimer and delayed troponin weren't negative and I reassured him that nothing dangerous is happening. This may indeed be panic attack it could also be a dysrhythmia I recommended he follow up with his PCP. - Diagnoses Provider Diagnoses: Chest pain, Palpitations Discharge - Sign-Out/Discharge Documenting (check all that apply): Patient Departure - DC - Discharge Plan Condition: Stable Disposition: HOME Patient Education Materials: Chest Pain (ED) Referrals: Paco Castelan DO [Primary Care Provider] - (2-3 days.) Additional Instructions: Follow up with your PCP in 2-3 days. Return to the ED if you experience any new or worsening symptoms. - Billing Disposition and Condition Condition: STABLE Disposition: Home - Attestation Statements Document Initiated by Juan Antonio: Yes Documenting Scribe: Dain Gagnon Provider For Whom Heidiibe is Documenting (Include Credential): Linden Up MD Scribe Attestation: IDain, scribed for Linden Up MD on 10/27/18 at 1553. Scribe Documentation Reviewed: Yes Provider Attestation: The documentation as recorded by the Dain cardoza accurately reflects the service I personally performed and the decisions made by me, Linden Up MD Status of Scribcriss Document: Viewed
[2018-10-27 12:06] LABS: ABS Basophils 0.1 10^3/ul (0-0.2); ABS Eosinophils 0.1 10^3/ul (0-0.6); ABS Lymphocytes 2.3 10^3/ul (1.0-4.8); ABS Monocytes 0.5 10^3/ul (0-0.8); ABS Neutrophils 2.8 10^3/ul (1.5-7.7); ABS Nucleated RBC 0 10^3/ul; Hematocrit 47 % (42-52); Mean Corpuscular HGB Conc 34 g/dl (31-36); Mean Corpuscular Hemoglobin 31 pg (27-31); Mean Corpuscular Volume 90 fL (80-94); Mean Platelet Volume 8.1 fL (7.4-10.4); Nucleated Red Blood Cells % 0; Platelet Count 180 10^3/ul (150-450); Red Blood Count 5.22 10^6/ul (4.00-5.40); Red Cell Distribution Width 13 % (10.5-15); White Blood Count 5.8 10^3/ul (3.5-10.8)
[2018-10-27 12:25] LABS: Albumin 4.6 g/dL (3.2-5.2); Albumin/Globulin Ratio 1.9 (1-3); BUN/Creatinine Ratio 8.5 (8-20); Calcium 9.6 mg/dL (8.6-10.3); Globulin 2.4 g/dL (2-4); Potassium 3.5 mmol/L (3.5-5.0); Total Bilirubin 0.5 mg/dL (0.2-1.0)
[2018-10-27 13:00] LABS: TSH (Thyroid Stimulating Horm) 0.64 mcIU/mL (0.34-5.60)
[2018-10-27 15:48] VITALS: BP 129/82
[2018-10-27 15:56] LABS: Urine Appearance Turbid; Urine Bilirubin Negative (Negative); Urine Blood Negative (Negative); Urine Color Amber; Urine Glucose Negative (Negative); Urine Ketones Negative (Negative); Urine Nitrite Negative (Negative); Urine Protein Negative (Negative); Urine Specific Gravity 1.018 (1.010-1.030); Urine Urobilinogen Negative (Negative)
== END 2018-10-27 15:48 | disposition home or self-care (01) ==
LOC: ED 11:25
DX: R07.9 Chest pain, unspecified (principal); R00.2 Palpitations; R55 Syncope and collapse; R53.1 Weakness; F17.210 Nicotine dependence, cigarettes, uncomplicated
CPT/HCPCS: 36415; 71045; 80053; 81003; 83605; 84443; 84484; 85025; 85379; 93005; 99284

== ENCOUNTER 2018-11-18 14:50 | Emergency (ER) | payer OTHER ==
--- OUTSIDE RECORDS SUMMARY | 2018-11-18 14:56 | XMS REPORT | Continuity of Care Document ---
:1985 External Reference #:[id number] Author Name Jasmyn Soto Care Team Providers Name Role Phone HCP given Primary Care Physician Unavailable Payers Type Date Identification Numbers Payment Provider Subscriber Effective: Policy Number: [id number] [facility] Timothy Palomino 2018 PayID: [id number] [address] [place] [address] Advance Directives Description No Information Available Problems [...] ppd urged to quit Smoking Status Reviewed: 10/29/18 current cigarette smoker 1 ppd sometimes down [...] his Father's Occupation Shanique Mcfadden Mother's Occupation Spinning Mule Operator Shaker Repairer No Daycare Needed Allergies, Adverse Reactions, Alerts Description No Known Drug Allergies Medications Medication Date Status Form Strength Qnty SIG Indications Ordering Provider Buspirone HCL 11/08 Active Tablets 15mg 60tab take 1 tablet F41.9 s by mouth two Paco, times daily D.O. for anxiety Hydroxyzine 11/08 Active Capsules 100mg 90cap 1 by mouth chak, Pam s for anxiety Paco, and at night D.O. for insomnia Klonopin 10/08 Active Tablets 0.5mg 90tab take 1 every F41.9 Sopchak, s 8 hours as Paco, needed for D.O. anxiety Loratadine 10/08 Active Tablets 10mg 90tab take 1 tablet J30.9 [facility], s daily at [place], bedtime for D.O. allergies Symbicort 10/08 Active Aerosol 160-4.5mc 30.6g inhale 2 J45.40 Sopchak, g/Act m puffs by Paco, mouth twice a D.O. day gargle after use Proair HFA 10/08 Active Aerosol 108(90Bas 25.5g 1-2 puffs J45.40 [facility], e) m four times a Paco, mcg/Act day as needed D.O. Hydroxyzine 10/29 Hx Tablets 25mg 90tab 1 by mouth at [facility] s night for Paco, - anxiety D.O. 11/08 No Active 10/08 Hx Unknown Medications - 10/08 Buspirone HCL 10/08 Hx Tablets 7.5mg 60tab 1 cap by F41.9 [facility] s mouth twice a Paco, - day D.O. 11/08 Qvar Redihaler 01/09 Hx Aerosol 80mcg/Act 31.8g Inhale 2 [facility] puffs by Paco, - mouth 2 times D.O. 10/07 per day for asthma Qvar 11/07 Hx Aerosol 40mcg/Act 26.1g 2 puffs twice [facility], m a day rinse Paco, - mouth after D.O. 01/09 use Arnuity 11/03 Hx Aerosol 100mcg/Ac 30uni Inhale 2 [facility], Ellip t ts puffs by Paco, - mouth daily D.O. 11/07 for asthma Cefdinir 08/17 Hx Capsules 300mg 20cap 1 cap bid x H72.90 Silcoff, s 10 days for Jeffy, - ear infection M.D. 08/26 Prednisone 08/17 Hx Tablets 20mg 5tabs 1 per morning H72.90 Silcoff, x 5 days for Jeffy - sevre ear M.D. 10/07 pain Meclizine HCL 08/17 Hx Tablets 25mg 24tab 1 tid-qid as H81.42 Silcoff, s needed for Jeffy, - room spinning M.D. 08/26 dizziness Ventolin HFA 01/02 Hx Aerosol 108(90Bas 16gm inhale 2 J20.9 [facility], e) puffs by Paco, - mcg/Act mouth every 4 D.O. 10/07 hours as needed for bronchospasm Pulmicort 01/02 Hx Aerosol 90mcg/Act 240pu 2 puffs 466.0 [facility], Flexhal ffss 1-2x/day; Paco, - Every day for D.O. 11/03 control of asthma to not wake up coughing Clonazepam 09/25 Hx Tablets 1mg 1 1/2 tabs po Member prn Erick, - [facility] 10/07 Amitriptyline 09/13 Hx Tablets 10mg 30tab 1 by mouth G47.00 [facility], s every night Paco, - at bedtime D.O. 09/13 Fluticasone 07/31 Hx Suspension 50mcg/Act 3unit 2 sprays into 477.0 [facility], s each nostril Paco, - every day [...] Capsules 10mg 30caps 1-2 cap by 477.0 Sopchak, 09/25/2016 mouth every Paco, day D.O. Lansoprazole 07/31/2014 - Hx Capsules DR 30mg 30caps 1 po daily as 530.81 Sopchak, 08/30/2014 needed Paco, D.O. Azithromycin 02/14/2014 - Hx Tablets 500mg 6tabs take 1 tablet 461.0 Flip, 04/29/2014 by mouth daily Paco, for 3 days for D.O. infection Pulmicort 01/23/2014 - Hx Aerosol 90mcg/ 240puffs 2 puffs 466.0 Alfred Castelanhaler 01/02/2017 Act s 1-2x/day; to Paco, be used when D.O. flovent not available Amoxicillin/Cla 01/23/2014 - Hx Tablets 875-12 14tabs 1 by mouth 466.0 Flip, vulanate 01/30/2014 5mg twice a day Paco, Potassium D.O. Amoxicillin/Cla 12/26/2013 - Hx Tablets 875-12 20tabs 1 by mouth 382.02 Flip, vulanate 01/21/2014 5mg twice a day Paco, Potassium D.O. Triamcinolone 09/18/2013 - Hx Cream 0.5% 80gm apply 2-3 692.6 Silcoff, Acetonide 10/02/2013 x/day up to 2 rehan Bardales M.D. Biaxin 08/31/2013 - Hx Tablets 500mg 20tabs 1 cap by mouth 490 [facility], 09/10/2013 twice a day Paco, D.O. Ventolin HFA 08/31/2013 - Hx Aerosol 108(90 1units inhale 2 puffs 477.0 [facility], 07/31/2014 Base) by mouth every Paco, mcg/Ac 4 hours as D.O. t needed for cough or wheezing Chantix 08/31/2013 - Hx Tablets 0.5mg 1tabs Take as 305.1 [facility], Starting Month 12/26/2013 X 11 & directed Paco, Byron 1 mg X D.O. 42 Flonase 08/31/2013 - Hx Suspension 50mcg/ 3units inhale 2 477.0 [facility] , 07/31/2014 Act sprays into Paco, nostril daily D.O. in each nostril for nose inflammation 477.0 Tramadol HCL 11/05/2012 - Hx Tablets 50mg 40tabs 1 po q 6 724.2 Sanjiv Julian. 08/31/2013 hrs prn jose a Encarnacion M.D. 11/05/2012 - Hx Tablets 10mg 30tabs 1 po tid 724.2 Sanjiv Jeter 08/31/2013 prn for Klenadia muscle Riccardo relaxation/ spasms Sulfamethoxazole 10/12/2012 - Hx Tablets [...] to 381.81 Sanjiv Jeter 10/21/2009 Act each jeff Encarnaciontril wendy Gu prn for nasal allergies Clarithromycin 06/23/2009 - Hx 250mg 20units 1 po bid 466.0 Sanjiv Jeter 07/03/2009 until gone Riccardo Encarnacion use this instead of the brand name Concerta 06/12/2009 - Hx Tablets ER 18mg 30tabs 1 po qam Member, 12/21/2011 MD Erick [facility] Omeprazole 40 MG 03/26/2009 - [...] 1, 1 PO On Jeffy, Days 2-5 MMeghanaDMeghana 466.0 Risperdal 06/06/2008 - Hx Tablets 1mg 60tabs 1 bid 296.89 Member, 12/21/2011 MD Erick [facility] Bupropion HCL 06/06/2008 - Hx Tablets ER 150mg 60tabs 1 bid 296.89 Sanjiv A. ER 12/21/2011 12HR Riccardo Encarnacion Timothy 07/06/2007 - Hx 842.00 Silcoff, Return To Work 07/09/2007 Jeffy Without Riccardo Restrictions Wrist 06/26/2007 - Hx 1units use as 842.00 Silcoff, Immobilizer 06/12/2008 directed Jeffy (Left) Riccardo Timothy March Work 06/26/2007 - Hx must use 842.00 [...] Hx Misc 1units take as 305.1 Sanjiv Rosas 06/12/2008 directed Riccardo Encarnacion Zithromax Z-Byron 01/17/2007 - Hx Tablets 250mg 1Pack use as 466.0 Inocencio 01/22/2007 directed Rama SOLIS Phenergan W/ 01/17/2007 - Hx Syrup 6.25mg 8Oz 2 TSP qid prn 466.0 Inocencio Codeine 02/05/2007 ;10mg/ Cough Rama SOLIS 5ML Work Note 10/20/2006 - Hx Patient Seen 787.01 klepack 11/27/2006 And Treated Here. Suggest Next 48 [...] 1, 1 po on Jeffy, days 2-5 M.DMeghana Cefuroxime 05/27/2004 - Hx Tablets 500mg 14tabs 1 po bid 381.02 klepack Axetil 09/13/2004 Dynacin 10/21/2003 - Hx Capsules 75mg 60caps take 1 tablet Breiman, 09/13/2004 orally twice Kanika, a day for N.P. 1 month Proventil HFA 10/21/2003 - Hx Aerosol 90mcg/ 1units 2 puffs po 493.12 Sanjiv Jeter 12/21/2011 Dose q4h prn for Klepack, cough, [...] CPT Code Status Date Vaccine Lot # [id number] Given 10/30/2014 Influenza Virus Vaccine, Quadrivalent, Split, [id number] Preservative Free 92149 Given 06/29/2012 Pneumococcal Immunization [id number] 70761 Given 11/05/2010 Flu, Split Virus 3Yrs [id number] 52272 Given 08/20/2008 Flu, Split Virus 3Yrs [id number] 17397 Given 02/06/2007 Adacel or Boostrix, TDaP [id number] Refused 11/03/2016 Influenza Virus Vaccine, Quadrivalent, Split, Im Use Vital Signs Date Vital Result Comment 11/08/2018 4:15pm BP Systolic 102 mmHg BP Diastolic 72 mmHg Weight 173.00 lb with boots 10/29/2018 3:58pm BP Systolic 100 mmHg BP Diastolic 80 mmHg Weight 175.00 lb 10/08/2018 2:47pm BP Systolic 112 mmHg BP [...] Date Facility Test Result H/L Range Note Urinalysis Profile 10/27/2018 [facility] Urine Color Bushra [phone] Urine Appearance Turbid Urine Specific Barnhill 1.018 N 1.010-1.030 Urine pH 8.0 N 5-9 Urine Urobilinogen Negative Negative Urine Ketones Negative Negative Urine Protein Negative Negative Urine Leukocytes Negative Negative Urine Blood Negative Negative Urine Nitrite Negative Negative Urine Bilirubin Negative Negative Urine Glucose Negative Negative Laboratory test 10/27/2018 [facility] Troponin-I (TnI) 0.00 ng/mL < 0.04 1 finding [phone] CBC Auto Diff 10/27/2018 [facility] White Blood Count 5.8 10^3/uL N 3.5-10.8 [phone] Red Blood Count 5.22 10^6/uL N 4.00-5.40 Hemoglobin 16.0 g/dL N 14.0-18.0 Hematocrit 47 % N 42-52 Mean Corpuscular Volume 90 fL N 80-94 Mean Corpuscular Hemoglobin 31 pg N 27-31 Mean Corpuscular HGB Conc 34 g/dL N 31-36 Red Cell Distribution Width 13 % N 10.5-15 Platelet Count 180 10^3/uL N 150-450 Mean Platelet Volume 8.1 fL N 7.4-10.4 Abs Neutrophils 2.8 10^3/uL N 1.5-7.7 Abs Lymphocytes 2.3 10^3/uL N 1.0-4.8 Abs Monocytes 0.5 10^3/uL N 0-0.8 Abs Eosinophils 0.1 10^3/uL N 0-0.6 Abs Basophils 0.1 10^3/uL N 0-0.2 Abs Nucleated RBC 0 10^3/uL Granulocyte % 48.2 % Lymphocyte % 39.0 % Monocyte % 9.1 % Eosinophil % 2.0 % Basophil % 1.7 % Nucleated Red Blood Cells % 0 Laboratory test finding 10/27/2018 [facility] Lactic Acid 1.1 mmol/L N 0.5-2.0 2 [phone] D Dimer Quantitative < 200 ng/mL N Less Than 230 3 Comp Metabolic Panel 10/27/2018 [facility] Sodium 140 mmol/L N 135- 145 [phone] Potassium 3.5 mmol/L N 3.5-5.0 Chloride 107 mmol/L N 101-111 Co2 Carbon Dioxide 27 mmol/L N 22-32 Anion Gap 6 mmol/L N 2-11 Glucose 119 mg/dL High 70-100 Blood Urea Nitrogen 10 mg/dL N 6-24 Creatinine 1.18 mg/dL High 0.67-1.17 BUN/Creatinine Ratio 8.5 N 8-20 Calcium 9.6 mg/dL N 8.6-10.3 Total Protein 7.0 g/dL N 6.4-8.9 Albumin 4.6 g/dL N 3.2-5.2 Globulin 2.4 g/dL N 2-4 Albumin/Globulin Ratio 1.9 N 1-3 Total Bilirubin 0.50 mg/dL N 0.2-1.0 Alkaline Phosphatase 55 U/L N 34-104 Alt 8 U/L N 7-52 Ast 12 U/L Low 13-39 Egfr Non- 72.0 >60 Egfr 87.1 >60 4 Laboratory test 10/27/2018 [facility] Troponin-I (TnI) 0.00 ng/mL < 0.04 5 finding [phone] TSH (Thyroid Stim Horm) 0.64 mcIU/mL N 0.34-5.60 HSV/VZV Derm PCR 04/04/2017 [facility] hs/VZ Source WOUND ON FOREHEA < SEE N 6 [phone] NOTE> HSV 1 PCR Negative N Negative HSV 2 PCR Negative N Negative 7 Varicella Zoster Source WOUND ON FOREHEA <SEE NOTE> N 8 Varicella Zoster Result Negative N Negative 9 Laboratory test 05/24/2014 [facility] Surgical RUN DATE: 10 finding [phone] Pathology <SEE NOTE> Laboratory test 02/14/2014 [facility] Rapid Influenza (SEE NOTE) 11 finding [phone] A B Antigen Xray 01/23/2014 [facility] Medicine X-Ray, Chest, 2 normal chest Views Throat-Beta 06/09/2013 [facility] Throat Beta (SEE NOTE) 12 Strept [phone] Strep Culture Urine Micro 06/29/2012 In House Ua WBC - Inhouse Ua RBC - Ua Casts - Ua Epi - Ua Other packed sediment Ua Glucose - Ua Bilirubin 1+ Ua Ketones mod Ua Specific Barnhill 1.010 Ua Blood - Ua PH 8.0 Ua Protein tr Ua Urobilinogen - Ua Nitrite - Ua Leukocytes - Surgical 04/06/2012 [facility] Surgical <SEE 13 Pathology [phone] Pathology NOTE> Laboratory test 02/21/2012 [facility] <SEE 14 finding [phone] Pathology NOTE> Laboratory test 02/14/2012 [facility] TSH 0.81 MIU/ML 0.34 finding [phone] -5.6 0 CBC Auto Diff 02/14/2012 [facility] White Blood 7.9 CUMM 4.8- [phone] Count 10.8 Red Cell Count 5.31 CUMM 4.6-6.2 Hemoglobin [...] Eosinophils 0.1 0-0.6 Abs Basophils 0 0-0.2 Urine Micro Inhouse 02/14/2012 In House Ua WBC - Ua RBC - Ua Casts - Ua Epi - Ua Other - Ua Glucose - Ua Bilirubin - Ua Ketones - Ua Specific [place] 1.020 Ua Blood - Ua PH 5.0 Ua Protein - Ua Urobilinogen - Ua Nitrite - Ua Leukocytes - Comp Metabolic Panel 02/14/2012 [facility] Sodium 138 mmol/L 135- 145 [phone] Potassium 4.2 mmol/L 3.5-5.0 Chloride 104 mmol/L 101-111 Co2 (Carbon Dioxide) 27.0 mmol/L 22-32 Anion Gap 7.0 mmol/L 2-11 15 Glucose 79 mg/dL 70-100 BUN 11 mg/dL 6-24 Creatinine 1.1 mg/dL 0.50-1.40 One Over Creatinine 0.90 BUN/Creatinine Ratio 10.0 8-20 Calcium 9.4 mg/dL 8.1-9.9 Total Protein 7.6 GM/DL 6.2-8.1 Albumin 4.9 GM/DL 3.6-5.4 Globulin 2.7 GM/DL 2-4 Albumin/Globulin Ratio 1.8 1-3 Bilirubin Total 0.8 mg/dL 0.4-1.5 16 Alkaline Phosphatase 54 U/L 39-117 Alt (SGPT) 17 U/L 17-63 Ast (Sgot) 17 U/L 12-42 eGFR Non- 82.2 > 60 eGFR 105.8 > 60 17 Laboratory 12/22/2009 [facility] Clotest N^NEGATIVE^ALVINA test finding [phone] Laboratory 12/22/2009 [facility] Gastrin 38 pg/mL () 18 test finding [phone] Surgical 12/22/2009 [facility] Surgical 19, Pathology [phone] Pathology <SEE NOTE> 20 Laboratory 11/11/2009 [facility] Glucose 86 mg/dL 70- 21 test finding [phone] 100 Lipid Profile 11/11/2009 [facility] Triglyceride 332 mg/dL High 40- (Trig/Chol/HDL [phone] 200 ) Cholesterol 236 mg/dL High Less Than 200 22 High Density Lipoprotein 32 mg/dL Low 40-60 23 Cholesterol/HDL Ratio 7.38 AVERAGE High 1-4.97 Low Density Lipoprotein 138 mg/dL High Less Than 100 24 CBC With Manual 11/11/2009 [facility] White Blood Count 7.0 CUMM 4.8 -10.8 Diff [phone] Red Cell Count 5.45 CUMM 4.6-6.2 Hemoglobin [...] Absolute Neutrophil Count 4.1 RBC Morphology NORMAL Liver Function Panel 11/11/2009 [facility] Total Protein 7.0 GM/DL 6.2-8.9 [phone] Albumin 4.1 GM/DL 3.6-5.4 Globulin 2.9 GM/DL 2-4 Albumin/Globulin Ratio 1.4 1-3 Bilirubin Total 0.7 mg/dL 0.4-1.5 25 Bilirubin Direct 0.1 mg/dL 0.1-0.5 Indirect Bilirubin 0.6 mg/dL 0.1-0.75 Alkaline Phosphatase 69 U/L 39-117 Alt (SGPT) 44 U/L 17-63 Ast (Sgot) 31 U/L 12-42 Laboratory test 12/11/2008 [facility] Surgical condyloma acum 26, 27 finding [phone] Pathology Ua Inhouse 11/05/2008 In House Ua Glucose - 28 Ua Bilirubin orange see note Ua Ketones - Ua Specific [place] 1.010 Ua Blood - Ua PH 7.5 Ua Protein ++ Ua Urobilinogen - Ua Nitrite - Ua Leukocytes - Throat-Beta Strep 01/18/2008 [facility] Throat-Beta Strep NGNBS 29 [phone] Culture Xray 06/26/2007 [facility] Medicine X-Ray, Wrist, Normal 30 Complete, Min. Of 3 Views L Laboratory test 10/23/2006 In House Culture Throat neg finding Rapid Screen Culture Throat neg 1 Troponin-I testing on Plasma Separator Tubes (PST) has a known false positive rate of 0.20-0.40%. All positive troponins reflex immediate secondary confirmatory testing. 2 [facility] Severe Sepsis and Septic Shock Management Bundle Measure requires all lactic acids initially measuring >2.0 mmol/L be repeated. 3 Please note: The following may produce a false positive D Dimer test: - Rheumatoid factor greater than 60 IU/ml - Plasma hemoglobin greater than 0.05 gm/dl - Bilirubin greater than 50 mg/dl - Lipids greater than 1000 mg/dl - FDP greater than 20 ug/ml 4 Because ethnic data is not always readily [...] 15-29 5 Kidney failure <15 (or dialysis) 5 Troponin-I testing on Plasma Separator Tubes (PST) has a known false positive rate of 0.20-0.40%. All positive troponins reflex immediate secondary confirmatory testing. 6 WOUND ON FOREHEAD 7 ADDITIONAL INFORMATION This test was developed using an analyte specific reagent. Its performance characteristics were determined by [facility] in a manner consistent with CLIA requirements. This test has not been cleared or approved by the U.S. Food and Drug Administration. 8 WOUND ON FOREHEAD 9 ADDITIONAL INFORMATION This test was developed and its performance characteristics determined by [facility] in a manner consistent with CLIA requirements. This test has not been cleared or approved by the U.S. Food and Drug Administration. Test Performed by: [facility] Laboratories - [facility] [address] [facility], [place] [address] 10 RUN DATE: 05/28/14 [facility] LAB LIVE PAGE 1 RUN TIME: [address] [place] [address] Specimen Inquiry Name: TIMOTHY PALOMINO : [address]: Sanjiv Encarnacion MD Acct: [id number] Unit: [id number] AGE: 28 Location: [facility] Re05/24/14 SEX: M Status: REG REF SPEC: [id number] MANI: 05/24/14-1051 [facility] DR: Sanjiv Encarnacion MD REQ: [id number] RECD: 05/26/14-4142 STATUS: SOUT _ ORDERED: LEVEL IV FINAL [...] performed at Main Lab DEPARTMENT OF PATHOLOGY, [facility] [place], [place] [employer] [place] [address] Jose Boateng M.D. Director [facility] # [id number] RUN DATE: 02/14/14 [facility] LAB LIVE PAGE 1 RUN TIME: 2116 [facility] [employer] [place], [place] [address] Specimen Inquiry Name: PALOMINOTIMOTYH : [address]: Paco Castelan DO Acct: [id number] Unit: [id number] AGE: 28 Location: [facility] Re02/14/14 SEX: M Status: REG REF SPEC: [id number] MANI: 02/14/14-[address]: Paco Castelan DO REQ: [id number] RECD: 02/14/14 STATUS: COMP _ SOURCE: RO [facility]: ORDERED: Rapid Flu A B QUERIES: Medent Number [id number] Procedure Result Verified Site Rapid Influenza A [...] performed at Main Lab DEPARTMENT OF PATHOLOGY, [facility] [place] [place] [employer] [place], [place] [address] Jose Boateng M.D. Director [facility] Permit #[id number] RUN DATE: 06/12/13 [facility] LAB LIVE PAGE 1 RUN TIME: 6528 [facility] [employer] [place], [place] [address] Specimen Inquiry Name: TIMOTHY PALOMINO Julian : [address]: Ok Pritchett MD Acct: [id number] Unit: [id number] AGE: 27 Location: [facility] Re06/09/13 SEX: M Status: DEP ER SPEC: [id number] MANI: 06/09/13-1957 [facility] DR: Ok Pritchett MD REQ: [id number] RECD: 06/10/13 STATUS: MARY ANNE DR: DARIEN Encarnacion MD _ SOURCE: THROAT SPDESC: ORDERED: Throat Beta Str Procedure Result Verified Site Throat Beta Strep Culture Final 06/12/13- 0856 ML Negative For Group A Beta Streptococcus END OF REPORT * ML=Testing performed at Main Lab DEPARTMENT OF PATHOLOGY, [address] [place] [address] Jose Boateng M.D. [facility] Permit #[id number] 13 ---- RUN DATE: 04/10/12 [facility] NMI LIVE PAGE 1 RUN TIME: 1405 Specimen Inquiry RUN USER: INTERFACE -- Name: TIMOTHY PALOMINO#: [id number] Status: REG REF Re04/06/12 Age/Sex: 26/M Unit#: [id number] Location: [facility] : [birth year] -- Specimen: [id number] Spec Date:04/06/12 Dr: Wilfred Velez MD Spec [...] 04/10/12 1403 -- -- DEPARTMENT OF PATHOLOGY, [address] [place] [address] [facility] Permit #[id number] Jose Boateng M.D. Director Giovanni Simmons M.D. Senior Manager Quality Assurance Dir carroll -- 14 ---- RUN DATE: 02/23/12 [facility] NMI LIVE PAGE 1 RUN TIME: 1420 Specimen Inquiry RUN USER: INTERFACE -- Name: PALOMINOTIMOTHY Status: REG REF Re02/21/12 Age/Sex: 26/M Unit#: [id number] Location: [facility] : [birth year] -- Specimen: [id number] SOUT Spec Date:02/21/12-[address] [facility] [address]: Jeffy schroeder MD Spec Type: SURGICAL [...] Signed Electronically by: JOSE BOATENG MD 02/23/12 1420 -- -- DEPARTMENT OF PATHOLOGY, [address] [place] [address] [facility] Permit #[id number] Jose Boateng M.D. Director Giovanni Simmons M.D. Senior Manager Quality Assurance carroll -- 15 Anion gap measurement may be of limited value in the presence of any alkalosis, especially in a combined acid base disorder. . 16 A metabolite of Naproxen, O-desmethylnaproxen, has been shown to interfere with the Jendrassik-Gene Autry method for measuring total bilirubin. Samples from patients who have taken Naproxen have shown spurious elevation in total bilirubin levels. 17 Because ethnic data is not always readily [...] 15-29 5 Kidney failure <15 (or dialysis) 18 -- REFERENCE VALUE -- <100 Reference ranges valid for >=8 hour fast. Test Performed by: [facility] Dpt of Lab Med and Pathology [address] [place], [place] [id number] Float Operator: Kurtis Schafer III, M.D. 19 severe atypia 20 ---- RUN DATE: 12/31/09 [facility] NMI LIVE PAGE 1 RUN TIME: 1014 Specimen Inquiry RUN USER: INTERFACE -- Name: TIMOTHY PALOMINO Status: REG REF Re12/22/09 Age/Sex: 24/M Unit#: [id number] Location: [facility] : [birth year] -- Specimen: [id number] SOUT Spec Date: 12/22/[address]: Wilfred Velez MD Spec Type: SURGICAL P Received: 12/22/09-1888 Copies to: Sanjiv zuniga MD SPECIMEN BIOPSY ESOPHAGOGASTRIC JUNCTION HISTORY PRE-OP DIAGNOSIS: Erosive esophagitis POST-OP DIAGNOSIS: Severe gastroesophageal reflux disease CLINICAL INFORMATION: Gastroesophageal reflux disease GROSS DESCRIPTION The specimen is received in formalin labelled Timothy Steffany GonsalesPalomino, Biopsy EG Junction, and consists of multiple [...] 12/31/09 1014 -- -- DEPARTMENT OF PATHOLOGY, [address] [place] [address] [facility] Permit #[id number] Jose Boateng M.D. Director Giovanni Simmons M.D. Senior Manager Quality Assurance Dir carroll -- 21 Note change in reference range as of 07/10/08. The change was based on recommendations from the [place] [employer]. 22 CHOLESTEROL INTERPRETATION: Desirable: Less than 200 MG/DL Borderline-High Risk: 200-239 MG/DL High-Risk: 240 MG/DL and over 23 HDL INTERPRETATION: Undesirable: High Risk: Less than 40 MG/DL Desirable: Low Risk: Greater than 60 MG/DL 24 LDL INTERPRETATION: Low Risk Optimal Level: LDL Less than 100 MG/DL Near or Above Optimal: LDL 100-129 MG/DL Borderline High Risk: LDL 130-159 MG/DL High Risk: LDL 160-189 MG/DL Very High Risk: LDL Greater than 189 MG/DL 25 A metabolite of Naproxen, O-desmethylnaproxen, has been shown to interfere with the Jenbarronik-Katia method for measuring total bilirubin. Samples from patients who have taken Naproxen have shown spurious elevation in total bilirubin levels. 26 12/09/08 pt calls and is very anxious for results, given. SL 27 ---- RUN DATE: 12/15/08 [facility] NMI LIVE PAGE 1 RUN TIME: 5850 Specimen Inquiry RUN USER: INTERFACE -- Name: TIMOTHY PALOMINO Acctank#: [id number] Status: REG REF Re12/11/08 Age/Sex: 23/M Unit#: [id number] Location: [facility] : [birth year] -- Specimen: [id number] SOUT Spec Date: 12/11/[address] [facility] [address]: Sanjiv ordonez MD Spec Type: SURGICAL [...] 12/15/08 1517 -- -- DEPARTMENT OF PATHOLOGY, [address] [place] [address] [facility] Permit #[id number] Jose Boateng M.D. Director Giovanni Simmons M.D. Senior Manager Quality Assurance Dir carroll -- 28 orange result not part of the strip test indications, but clearly a change 29 NEGATIVE FOR GROUP A STREP 30 No fractures or dislocations in left wrist Procedures Date Code Description Status 01/02/2017 90763 Destruction Of Skin Lesions Up To 14 Flat Warts/Molluscum Completed Contag 09/26/2016 84668 Destruction Of Skin Lesions Up To 14 Flat Warts/Molluscum Completed Contag 07/31/2014 29420 Omt 7-8 Body Regions Completed 05/24/2014 17198 Shave Skin Lesion 1.1-2CM Trunk/Arm/Leg Completed 05/19/2014 05045 Destruction Of Skin Lesions Up To 14 Flat Warts/Molluscum Completed Contag 01/23/2014 38719 Electrocardiogram Complete Completed 01/23/2014 30386 X-Ray Chest Two Views Completed 12/26/2013 48285 Omt 3 To 4 Body Regions Involved Completed 07/26/2013 97866 Destruction Of Skin Lesions Up To 14 Flat Warts/Molluscum Completed Contag 02/21/2012 48656 Shave Skin Lesion .6-1CM Trunk/Arm/Leg Completed 12/04/2009 01398 Destruction Of Skin Lesions Up To 14 Flat Warts/Molluscum Completed Contag 03/26/2009 54680 Tympanometry Completed 01/09/2009 61893 Tympanometry Completed 01/09/2009 55332 Destruction Of Skin Lesions Up To 14 Flat Warts/Molluscum Completed Contag 12/11/2008 75035 Destruction Of Skin Lesions Up To 14 Flat Warts/Molluscum Completed Contag 12/11/2008 00170 Biopsy Skin Lesion Single Completed 06/26/2007 88138 X-Ray Wrist Three Views Completed 10/11/2004 37003 Bronchospasm Evaluation Pre & Post Completed 05/27/2004 34122 Tympanometry Completed 10/21/2003 19527 Bronchospasm Evaluation Pre & Post Completed Encounters Type Date Location Provider Dx Diagnosis Office Visit 11/08/2018 Main Office Paco Castelan, F41.9 Anxiety disorder , 3:45p D.O. unspecified R07.89 Other chest pain E78.2 Mixed hyperlipidemia F33.1 Major depressive disorder, recurrent, moderate F60.3 Borderline personality disorder Office Visit 10/29/2018 3:00p Main Office Paco Castelan, R07.89 Other chest pain D.O. F41.9 Anxiety disorder, unspecified E78.2 Mixed hyperlipidemia R51 Headache F33.1 Major depressive disorder, recurrent, moderate F60.3 Borderline personality disorder J45.40 Moderate persistent asthma, uncomplicated G47.00 Insomnia, unspecified Office Visit 10/08/2018 2:30p Main Office Paco Castelan, F33.1 Major depressive [...] Main Office Flip, S06.0x0A Concussion without Paco, D.O. loss of [...] 11/05/2012 1:10p Main Office Sanjiv Jeter 724.2 Pankaj Encarnacion M.D. Office Visit 10/12/2012 11:15a Main Office Laura [...] (Except Thigh) & Ankle W/O Complication V06.1 Knmofgtwhn-Izmqjhl-Hdjcutqo Combined (DTaP) V07.2 Prophylactic Immunotherapy Office Visit 01/17/2007 11:30a Main Office Rama Painter MD 466.0 Bronchitis Acute Office Visit 10/20/2006 1:45p Main Office fabricio 462 Pharyngitis Acute 787.01 Nausea W/ Vomiting 780.6 Fever Office Visit 09/27/2006 9:15a Main Office Zachary 381.00 Otitis Media Riccardo Bardales Nonsuppurative Acute Unspec Office Visit 04/06/2005 3:15p Main Office Zachary, 845.00 Sprains & Strains Riccardo Bardales Ankle [...] With Acute Exacerbation Plan of Treatment Future Appointment(s):12/10/2018 10:00 am - Paco Castelan D.O. at [id number]/29/2018 - Paco Castelan D.O.R07.89 Other chest painReferral:Emmanuel Harrington DO, Cardiology/Phys/OsteoFollow up:as scheduled`F41.9 Anxiety disorder, aqgwpfkspklV19.2 Mixed zyskdrztwipyqtD96 PcqobofhL96.1 Major depressive disorder , recurrent, gnoteaqdS24.3 Borderline personality tjynpelnA23.40 Moderate persistent asthma, dhylonentbrqiI24.00 Insomnia, unspecified
[2018-11-18 14:58] VITALS: BP 120/75
--- NOTE | 2018-11-18 15:36 | UC ---
Throat Pain/Nasal Chirag HPI - HPI Summary HPI Summary: 33-year-old male presents with 2 day history of right ear pain and decreased hearing. States he has had 4-5 days of nasal congestion and sinus pressure. Reports history of recurrent ear infections with multiple tympanostomy tubes. Denies fever, chills, ear drainage, tinnitus, dizziness, vertigo, sore throat, cough, chest pain, shortness of breath, abdominal pain, nausea, or vomiting. - History of Current Complaint Chief Complaint: UCEar Stated Complaint: EAR PAIN Time Seen by Provider: 11/18/18 15:17 Hx Obtained From: Patient Pain Intensity: 6 - Allergies/Home Medications Allergies/Adverse Reactions: Allergies Allergy/AdvReac Type Severity Reaction Status Date / Time No Known Allergies Allergy Verified 11/18/18 14:53 Home Medications: Home Medications guaiFENesin [Mucinex] 1,200 mg PO 11/18/18 [History] PMH/Surg Hx/FS Hx/Imm Hx - Additional Past Medical History Additional PMH: Recurrent otitis media Previously Healthy: Yes Respiratory History: Asthma GI/ History: Gastroesophageal Reflux Psychological History: Anxiety, Depression - Surgical History Surgical History: Yes Surgery Procedure, Year, and Place: bilateral ear tube placements - x5/6 [facility] - Family History Known Family History: Positive: Cardiac Disease, Hypertension, Other - skin cancer, HLD - Social History Alcohol Use: Rare Substance Use Type: None Smoking Status (MU): Heavy Every Day Tobacco Smoker Type: Cigarettes Amount Used/How Often: 1 ppd for 13 years Length of Time of Smoking/Using Tobacco: 12 years Have You Smoked in the Last Year: Yes When Did the Patient Quit Smoking/Using Tobacco: wants to quit Household Exposure Type: Cigarettes Review of Systems All Other Systems Reviewed And Are Negative: Yes Constitutional: Negative: Fever, Chills Eyes: Negative: Drainage, Eye Redness ENT: Positive: Ear Ache, Nasal Discharge, Sinus Congestion. Negative: Sore Throat, Sinus Pain/Tenderness Respiratory: Negative: Shortness Of Breath, Cough Cardiovascular: Negative: Palpitations, Chest Pain Gastrointestinal: Negative: Abdominal Pain, Vomiting, Diarrhea, Nausea Neurological: Negative: Headache Is Patient Immunocompromised?: No Physical Exam - Summary Physical Exam Summary: GENERAL APPEARANCE: Well developed, well nourished, alert and cooperative, and appears to be in no acute distress. EYES: Conjunctiva clear. No discharge. Vision is grossly intact. EARS: External auditory canals clear. Left TM with severe scarring, no eythema or effusion noted. Right TM bulging with erythema and large effusion. NOSE: Mild nasal congestion with mucosal erythema and edema. No discharge noted. THROAT: Oral cavity and pharynx normal. No inflammation, swelling, exudate, or lesions. Teeth and gingiva in good general condition. NECK: Neck supple, non-tender without lymphadenopathy. CARDIAC: Normal S1 and S2. No S3, S4 or murmurs. Rhythm is regular. There is no peripheral edema, cyanosis or pallor. Extremities are warm and well perfused. Capillary refill is less than 2 seconds. LUNGS: Clear to auscultation and percussion without rales, rhonchi, wheezing or diminished breath sounds. ABDOMEN: Positive bowel sounds. Soft, nondistended, nontender. No guarding or rebound. No masses or hepatosplenomegally. MUSKULOSKELETAL: ROM intact to all extremities. No joint erythema or tenderness. Normal muscular development. Normal gait. SKIN: Skin normal color, texture and turgor with no lesions or eruptions. Triage Information Reviewed: Yes Vital Signs: Initial Vital Signs Temp 98.4 F 11/18/18 14:54 Pulse 91 11/18/18 14:54 Resp 16 11/18/18 14:54 BP 120/75 11/18/18 14:54 Pulse Ox 99 11/18/18 14:54 Vital Signs Reviewed: Yes Throat Pain/Nasal Course/Dx - Course Course Of Treatment: 33-year-old male presents with 2 day history of right ear pain and decreased hearing. States he has had 4-5 days of nasal congestion and sinus pressure. Reports history of recurrent ear infections with multiple tympanostomy tubes. Denies fever, chills, ear drainage, tinnitus, dizziness, vertigo, sore throat, cough, chest pain, shortness of breath, abdominal pain, nausea, or vomiting. Afebrile. Vital signs stable. Exam revealed mild to moderate nasal congestion with mild mucosal erythema and edema as well as a bulging erythematous right TM with large effusion. Will treat the otitis media with Augmentin twice a day 10 days and recommend symptomatic treatment for acute sinusitis. He is to follow-up with his primary care provider in 7 days if symptoms do not improve. Warning symptoms were reviewed with the patient. He verbalizes understanding and agrees with plan of care - Differential Dx/Diagnosis Differential Diagnosis/HQI/PQRI: Otitis Media, Sinusitis, URI Provider Diagnosis: Acute sinusitis, Right otitis media with effusion Discharge - Sign-Out/Discharge Documenting (check all that apply): Patient Departure All imaging exams completed and their final reports reviewed: No Studies - Discharge Plan Condition: Stable Disposition: HOME Prescriptions: Amoxicillin/Clavulanate TAB* [Augmentin TAB 875*] 875 mg PO BID #20 tab Patient Education Materials: Sinusitis (ED), Ear Infection (ED) Referrals: Paco Castelan DO [Primary Care Provider] - Additional Instructions: Your history and exam are consistent with a sinus infection and a secondary right ear infection. We will start you on an antibiotic for the infection. Start Augmentin 1 tab twice a day for 10 days. Take with food to avoid upset stomach. Be sure to complete the entire course even if you are feeling better. Continue using your fluticasone (Flonase) nasal spray 2 sprays each nostril once daily. Use an over the counter decongestant such as Sudafed according to directions to help with congestion. Take over the counter acetaminophen (Tylenol) or ibuprofen (Advil, Motrin) according to directions as needed for pain or fever. Follow up with your primary care provider in 7 days if symptoms persist. Seek immediate medical attention in the emergency room if you have fever greater than 100.5 F despite taking acetaminophen or ibuprofen, have chest pain , difficulty breathing, are unable to swallow, or have any worsening of symptoms. - Billing Disposition and Condition Condition: STABLE Disposition: Home
== END 2018-11-18 15:52 | disposition home or self-care (01) ==
LOC: UCEAST 14:50
DX: J01.90 Acute sinusitis, unspecified (principal); H65.91 Unspecified nonsuppurative otitis media, right ear; J45.909 Unspecified asthma, uncomplicated; F17.210 Nicotine dependence, cigarettes, uncomplicated
CPT/HCPCS: 99212; G0463